=== PATIENT | female | born 1995 | race Caucasian/White ===

== ENCOUNTER → 2017-10-30 09:07 | Outpatient (POV) | payer OTHER, SELFPAY | PROVIDERS: Family Provider Internal Medicine; Visit Provider Internal Medicine | DX: Z00.00 Encounter for general adult medical examination without abnormal findings (principal) ==

== ENCOUNTER 2017-11-23 08:53 | Day surgery (SDC) | payer OTHER, SELFPAY ==
[2017-11-21 16:43] VITALS: BMI 24.7
[2017-11-23] VITALS (16 sets, daily range): BP systolic 92–141; BP diastolic 57–84; PULSE 59–95; RESP 12–20; TEMP 36.7–36.8; O2SAT 95–100
[2017-11-23 09:54] LABS: Urine Pregnancy, HCG Qual. Negative (Negative)
--- NOTE | 2017-11-23 11:16 | HMH.PROC ---
[facility] Procedure Note Procedure Note:: Upper Endoscopy Procedure Report: Esophagogastroduodenoscopy with cold biopsies Endoscopost: Umang Cortes II, MD Referring Physician: Roberth Moreno MD Date of Procedure: November 23, 2017 Equipment: Olympus GIF 180 standard upper endoscope Sedation: Fentanyl 200 mg IV/ Versed 10 mg IV Indications: Ms. Walter is a 22-year-old female with dyspepsia described as epigastric abdominal pain, indigestion, heartburn, reflux, bloating, belching, nausea and early satiety. The patient also has had diarrhea 4-5 times per week over the last year and some lower abdominal discomfort. She reports at least a 5 pound weight loss. Her mother has a history of IBS but she reports no history of Crohn's, colitis or celiac disease. Procedure: Prior to the procedure, a history and physical exam was performed, and patient's medications and allergies were reviewed. The risks, benefits and alternatives of the sedation and procedure were discussed with the patient. All questions were answered and informed consent was obtained. The patient was brought to the procedure room. Patient identification and proposed procedure were verified by the physician and the nurse. The patient was placed in a left lateral decubitus position and the scope was passed under direct vision. Throughout the procedure, the patient's blood pressure, pulse, and oxygen saturations were monitored continuously. The upper GI endoscopy was accomplished without difficulty. The patient tolerated the procedure well. Findings: The scope was passed directly into the upper esophagus and advanced to the third portion of the duodenum. The post bulbar duodenum and duodenal bulb were normal with normal mucosa and conniventes. Cold biopsies were taken from the post bulbar duodenum ?4. The scope was withdrawn through a normal duodenal bulb and pylorus into the stomach. There was very minimal linear erythema of the prepyloric antrum. The remainder of the antrum, body and fundus of the stomach were grossly normal. Upon retroflexion there was no hiatal hernia. 2 biopsies were taken in the antrum and along the lesser curvature for histology to rule out gastritis and/or H pylori. The scope was then withdrawn into the esophagus. There was no evidence of reflux esophagitis or Greenfield's. There were tertiary contractions and mild dysmotility. There was a mid esophageal diverticulum with an inflammatory or pseudopolyp within the base of the diverticulum that was biopsied. The remainder of the esophageal mucosa was normal. Impression: 1. Nonerosive GERD with mild esophageal dysmotility and mid esophageal diverticulum with inflammatory/pseudopolyp with base of diverticulum 2. 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 We will discuss dietary measures and treatment options. I will follow up the biopsies. I will proceed with diagnostic colonoscopy.
--- NOTE | 2017-11-23 11:42 | P.PCN_ITS ---
[facility] Procedure Note Procedure Note:: Colonoscopy Procedure Report: Colonoscopy with cold biopsy Endoscopist: Umang Cortes II, MD Referring physician: Roberth Moreno MD Date of Procedure: November 23, 2017 Equipment: Olympus 180 variable stiffness pediatric colonoscope Sedation: Fentanyl 200 mg IV/ Versed 15 mg IV Indication: Ms. Walter is a 22-year-old female with dyspepsia described as epigastric abdominal pain, indigestion, heartburn, reflux, bloating, belching, nausea and early satiety. The patient also has had diarrhea 4-5 times per week over the last year and some lower abdominal discomfort. She reports at least a 5 pound weight loss. Her mother has a history of IBS but she reports no history of Crohn's, colitis or celiac disease. The patient reports no rectal bleeding. She does state that stress exacerbates her symptoms. Procedure: Prior to the procedure, a history and physical exam was performed, and patient' s medications and allergies were reviewed. The risks, benefits and alternatives of the sedation and procedure were discussed with the patient. All questions were answered and informed consent was obtained. The patient was brought to the procedure room. Patient identification and proposed procedure were verified by the physician and the nurse. The patient was placed in a left lateral decubitus position and the scope was passed under direct vision. Throughout the procedure, the patient's blood pressure, pulse, and oxygen saturations were monitored continuously. The colonoscopy was accomplished without difficulty. The patient tolerated the procedure well. Findings: On digital rectal examination there was normal rectal tone. There were no external hemorrhoids. The colonoscope was introduced through the anal canal to the rectum and advanced to the cecum. The ileocecal valve and appendiceal orifice were identified. The scope was advanced a short distance into the ileum which appeared grossly normal. The scope was then withdrawn into the colon. The cecum, ascending, transverse, descending, sigmoid and rectum were grossly normal. There was a single diminutive 3 mm polyp in the rectum removed via cold biopsy. There were no other mucosal abnormalities identified. Upon retroflexion within the rectum there were grade 1 other internal hemorrhoids. Impression: 1. Diminutive rectal polyp 2. Small grade 1 internal hemorrhoids Plan: I will follow-up the polyp histology. I do feel that the patient has functional dyspepsia/functional bowel disease with SIBO. We will discuss additional dietary measures and treatment options.
== END 2017-11-23 13:19 | disposition home or self-care (01) ==
LOC: OUTP 08:54
PROVIDERS: Family Provider Internal Medicine; PCP Internal Medicine; Visit Provider Internal Medicine Gastroenterology
PROC: 0DJ08ZZ Inspection of Upper Intestinal Tract, Via Natural or Artificial Opening Endoscopic (ICD-10-PCS; CPT 43235; principal; 2017-11-23 10:00)
DX: K21.9 Gastro-esophageal reflux disease without esophagitis (principal); K22.4 Dyskinesia of esophagus; K29.60 Other gastritis without bleeding; K62.1 Rectal polyp; K64.0 First degree hemorrhoids
CPT/HCPCS: 43239; 45380; 81025; 99152; 99153

== ENCOUNTER → 2017-12-19 12:48 | Outpatient (CLI) | payer OTHER, SELFPAY ==
--- NOTE | 2017-12-19 12:56 | CT_ITS ---
CT chest wo con HISTORY: Follow-up mediastinal adenopathy ITS.REASON: MEDIASTINAL ADENOPATHY ORDERING PHYSICIAN: Antoine Moreno MD PATIENT AGE: 22 years Technique: Axial images obtained. Sagittal and coronal reformatted images are also generated and reviewed. All CT scans at the facility use one or more dose reduction, viz: automated exposure control; ma/kV adjustment per patient size (including targeted exams where dose is matched to indication; i.e. head); or iterative reconstruction technique. CONTRAST: None COMPARISON: 06/14/2017 FINDINGS: Prominent mediastinal and hilar adenopathy is once again noted with multiple calcified lymph nodes the adenopathy is somewhat less bulky in the subcarinal region. There remains a small pneumatocele in the superior segment of the right lower lobe containing a small focus of calcification anteriorly have an a somewhat signet ring appearance. There is some consolidation in the superior segment of the right lower lobe around this abnormality was not present on the previous exam a nodular opacity is present in the superior segment of the right lower lobe measuring 8 mm and has developed in the interval and could be due to pneumonia or a pulmonary nodule there is an additional cystic area in the left lower lobe posteriorly containing a focal coarse calcification. Calcification is stable however the cystic region has developed since previous exam. Calcific density is present in the left lung base medially unchanged. There is a 4 mm nodule within the lingula which is enlarged previously barely detectable at 2 to 3 mm. There is a trace right pleural effusion slightly smaller on today's study compared to the previous exam. No acute bony anomalies. Upper abdominal images are unremarkable. No axillary adenopathy IMPRESSION: 1. Persistent mediastinal and hilar adenopathy with multiple partially calcified nodes present as before. The subcarinal adenopathy is somewhat less apparent on today's exam with improvement in the central necrosis in the subcarinal region. These findings are consistent with sarcoidosis. 2. There are 2 cavitary pulmonary nodules one in the superior segment of the right lower lobe and one in the left lower lobe both of which have developed and areas of calcified granulomas. This may also be seen with sarcoidosis. 3. Slightly enlarging 4 mm nodule within the lingula 4. Patchy infiltrate in the superior segment of the right lower lobe with some nodularity also in this region which be related to inflammatory or infectious etiology.
== END ==
PROVIDERS: Family Provider Internal Medicine; PCP Internal Medicine; Visit Provider Internal Medicine
DX: R59.0 Localized enlarged lymph nodes (principal)
CPT/HCPCS: 71250

== ENCOUNTER → 2018-03-20 11:01 | Outpatient (CLI) | payer OTHER, SELFPAY ==
[2018-03-20 11:42] LABS: Basophils % 0.1 % (0.1-2.0); Eosinophils # 0.1 K/mm3 (0.0-0.4); Eosinophils % 0.9 % (0.1-12.0); Hematocrit 34.1 % (37.0-47.0); Hemoglobin 11.3 g/dL (12.2-16.2); Lymphocytes # 1.1 K/mm3 (0.7-4.5); Lymphocytes % 12.6 K/mm3 (10-50); Mean Corpuscular HGB Conc 33.3 g/dL (31.8-35.4); Mean Platelet Volume 7.1 fl (7.4-10.4); Monocytes # 0.5 K/mm3 (0.1-1.0); Monocytes % 5.9 % (1.7-9.3); Neutrophils # 7.1 K/mm3 (1.8-7.8); Neutrophils % 80.5 % (37.0-80.0); Platelet Count 292 K/mm3 (142-424); Red Blood Count 3.91 M/mm3 (4.20-5.40); Red Cell Distribution Width 13.1 % (11.5-17.5); White Blood Count 8.9 K/mm3 (4.8-10.8)
[2018-03-21 09:22] LABS: Rapid Plasma Reagin Ab Titer Non Reactive (NonRea<1:1)
[2018-03-22 20:02] LABS: HIV Screen 4th Generation wRfx Non Reactive (Non Reactive); Hepatitis B Surface Antigen Negative (Negative); Hepatitis C Antibody <0.1 s/co ratio (0.0-0.9); Rubella Antibodies, IgG 1.02 index (Immune >0.99)
== END ==
PROVIDERS: Family Provider Internal Medicine; PCP Internal Medicine; Visit Provider Nurse Practitioner Obstetrics & Gynecology
DX: Z34.90 Encounter for supervision of normal pregnancy, unspecified, unspecified trimester (principal)
CPT/HCPCS: 36415; 85025; 86592; 86703; 86762; 86850; 87340; 87380; G0432

== ENCOUNTER → 2018-03-29 10:26 | Outpatient (CLI) | payer OTHER, SELFPAY ==
--- NOTE | 2018-03-29 10:27 | US_ITS ---
US OB transvaginal HISTORY: ITS.REASON: US OB TV for DATES ORDERING PHYSICIAN: Hernandez Duarte MD PATIENT AGE: 23 years COMPARISON: None FINDINGS: An intrauterine gestational sac is present with a pole with a crown-rump length of 2.31cm correlating to gestational age of 9w1d. heart tones are present with an FHR of 186 bpm's. Yolk sac is noted. The amnion and chorion have not yet fused. Adnexa: Small bilateral ovarian cysts measuring up to 1.4 cm on the left and 1 cm on the right. IMPRESSION: Live intrauterine gestation at 9 weeks 1 days as described above. Estimated due date by ultrasound is 10/31/2018
== END ==
PROVIDERS: Family Provider Internal Medicine; PCP Internal Medicine; Visit Provider Nurse Practitioner Obstetrics & Gynecology
DX: O26.841 Uterine size-date discrepancy, first trimester (principal)
CPT/HCPCS: 76830

== ENCOUNTER → 2018-06-18 12:40 | Outpatient (CLI) | payer OTHER, SELFPAY ==
--- NOTE | 2018-06-18 12:41 | US_ITS ---
US OB /maternal detail: INDICATION: ITS.REASON: US OB Complete 20 wk+ Anatomy Scan ORDERING PHYSICIAN: Hernandez Duarte MD PATIENT AGE: 23 years TECHNIQUE: ultrasound transabdominal scanning. COMPARISON: No previous relevant studies. FINDINGS: Single viable intrauterine gestation. Breech position. Placenta: Anterior placenta grade 1. There is average amount fluid. The cervix appears satisfactory. Closed and measuring 3 cm in length. Complete survey performed and was unremarkable on the submitted images as in PACS. No discrete anomalies identified on survey imaging by technologist. Active fetus. Three-vessel cord with satisfactory umbilical cord insertion. 4- chamber heart noted. Survey of brain & ventricles unremarkable. Face and neck survey unremarkable. Diaphragm and chest views unremarkable. Abdomen: Both kidneys noted and unremarkable. Stomach noted and satisfactory. Spine: Survey of the spine satisfactory with no anomalies identified nor imaged. Both arms and legs noted. Amniotic Fluid: Adequate. Maternal adnexa: No significant findings. Measurements: Average ultrasound age 21w1d. Gestational Age 20w5d. Estimated due date by ultrasound age 0110/28/2018. Estimated weight 408 grams. BPD = 21w0d OFD = 22w2d HC = 21w1d AC = 22w1d FL = 20w2d Growth Percentile= 73% Heart Rate = 146 Cerebellum = 20w5d Humerus = 21w4d HC/AC is 1.09 (1.09-1.26). CI is 72% (70-86%). FL/BPD is 67%. FL/AC is 19%. IMPRESSION: There is a single live fetus which is in breech presentation with an average ultrasound age of 21 weeks and 1 day. All parameters correlate. heart and body motion noted. No obvious anomalies. Please see above for detail
== END ==
PROVIDERS: Family Provider Internal Medicine; PCP Internal Medicine; Visit Provider Nurse Practitioner Obstetrics & Gynecology
DX: Z36.0 Encounter for antenatal screening for chromosomal anomalies (principal)
CPT/HCPCS: 76811

== ENCOUNTER → 2018-07-09 07:15 | Outpatient (CLI) | payer OTHER, SELFPAY ==
--- NOTE | 2018-07-09 07:17 | US_ITS ---
US gallbladder HISTORY: Right upper quadrant pain and vomiting ITS.REASON: US Gallbladder- RUQP ORDERING PHYSICIAN: Hernandez Duarte MD PATIENT AGE: 23 years Comparison: None FINDINGS: PANCREAS: Unremarkable. No obvious mass or abnormal fluid collection. No ductal dilatation LIVER: No focal liver lesions demonstrated. Homogeneous echogenicity. No intrahepatic biliary ductal dilatation evident RIGHT KIDNEY: There is dilatation of the right renal collecting system which may be be seen with . Please correlate with clinical findings. GALLBLADDER: Multiple small gallstones are present. No gallbladder wall thickening, pericholecystic fluid, or biliary dilatation. IMPRESSION: No cholelithiasis. 2. Mild right hydronephrosis and proximal hydroureter possibly due to the gravid uterus. Clinical correlation and follow-up suggested
== END ==
PROVIDERS: Family Provider Internal Medicine; PCP Internal Medicine; Visit Provider Nurse Practitioner Obstetrics & Gynecology
DX: R10.11 Right upper quadrant pain (principal)
CPT/HCPCS: 76705

== ENCOUNTER → 2018-08-13 10:56 | Outpatient (POV) | payer OTHER, SELFPAY | PROVIDERS: Visit Provider Internal Medicine | DX: Z00.00 Encounter for general adult medical examination without abnormal findings (principal) ==

== ENCOUNTER → 2018-08-19 19:53 | Outpatient (CLI) | payer OTHER, SELFPAY | PROVIDERS: PCP Internal Medicine; Visit Provider Nurse Practitioner Obstetrics & Gynecology | DX: N39.0 Urinary tract infection, site not specified (principal) | CPT/HCPCS: 87086 ==

== ENCOUNTER 2018-09-07 19:37 | Inpatient (IN) ==
--- NOTE | 2018-09-07 20:10 | Emergency Department Note ---
ED Disposition Clinical Impression: Abdominal pain Qualifiers: Abdominal location: right upper quadrant Qualified Code(s): R10.11 - Right upper quadrant pain Qualifiers: Weeks of gestation: 33 weeks Qualified Code(s): Z3A.33 - 33 weeks gestation of Disposition: Home, Self-Care Condition on Discharge: Good Instructions: DI for Nausea -- Adult Referrals: Luke Hammonds [Primary Care Provider] - - Critical Care Critical Care Time: No Attestation: On 09/07/18, the high probability of a clinically significant, sudden or life threatening deterioration of the following system(s) required my full and direct attention, intervention and personal management. The time I documented below is in addition to time spent performing reported procedures but includes the following listed in this critical care notation. Medical Decision Making - Medical Records Medical records reviewed: Yes: I reviewed the patient's medical records. - Phani Inquiry Pt receiving controlled substance: No Vital Signs: 09/07/18 19:38 Temperature 98.2 F Temperature Source Oral Pulse Rate [Right Brachial] 78 Respiratory Rate 17 Blood Pressure [Right Arm] 123/68 Blood Pressure Mean [Right Arm] 86 02 Sat by Pulse Oximetry 100 Orders (Tests/Meds): ED MEDICATIONS Generic Name Dose Route Start Last Admin Trade Name Freq PRN Reason Stop Dose Admin Sodium Chloride 1,000 mls @ 999 mls/hr 09/07/18 19:45 09/07/18 19:53 Sod Chlor 0.9% 1000ml Bag IV 09/07/18 20:45 999 mls/hr .Q1H1M OLIVER Administration Discontinued Medications Generic Name Dose Route Start Last Admin Trade Name Freq PRN Reason Stop Dose Admin Morphine Sulfate 2 mg 09/07/18 20:09 09/07/18 20:10 Morphine 2mg/Ml Syringe IV 09/07/18 20:10 2 mg ONCE ONE Administration Promethazine HCl 12.5 mg 09/07/18 19:42 09/07/18 19:52 Phenergan 25mg/Ml 1ml Vial IV 09/07/18 19:43 12.5 mg ONCE ONE Administration Sodium Chloride 25 ml 09/07/18 19:42 09/07/18 19:52 Sod Chlor 0.9% 25ml Bag IV 09/07/18 19:43 25 ml ONCE ONE Administration ORDERS Category Date Time Status Amylase Stat Lab 09/07/18 19:55 Received Complete Blood Count Auto Diff Stat Lab 09/07/18 19:55 Received Comprehensive Metabolic Panel Stat Lab 09/07/18 19:55 Received Lipase Stat Lab 09/07/18 19:55 Received - Physician Consults Physician Consulted: priyank Reason -: Pt condition HPI - General Chief complaint: Nausea/Vomiting/Diarrhea Stated complaint: vomiting Time Seen by Provider: 09/07/18 20:07 Mode of Arrival: Family Vehicle Source of Information: Patient, Medical Record Limitations: No Limitations Description of Symptoms (Recalled from ER Triage Doc. by RN): pt presents to ed with c/o vomiting and right upper quad abd pain that radiates into back. pt has known galbladder disease and is 33 weeks . 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 - History of Present Illness HPI Narrative: upper abd pain with vomiting in 33 week wf - known gb disease MD Complaint: abdominal pain Onset (ago): day(s) Location: abdomen Severity: moderate Quality: cramping Associated symptoms: nausea, vomiting Vaginal bleeding: none : yes Date of Last Menstrual Period: . - Related Data Home Medications Medication Instructions Recorded Confirmed 1 tab PO QHS 03/20/18 09/07/18 vitamin,calcium,kgjhvljl-jqdl-sshof acid tablet Ferrous Sulfate 325 mg PO DAILY 09/07/18 09/07/18 Previous Rx's Medication Instructions Recorded promethazine 12.5 mg tablet 12.5 mg PO Q6H PRN #14 tab 04/23/18 Allergies Allergy/AdvReac Type Severity Reaction Status Date / Time Sulfa (Sulfonamide AdvReac Intermediate Verified 09/07/18 19:41 Antibiotics) [facility] History I have reviewed the patient's past medical history: Yes Medical History: Reports:: Lung Disease Denies:: Cancer, Diabetes Mellitus Type 1, Diabetes Mellitus Type 2, Internal Pacemaker, MRSA, Seizures Comment: IBS, chronic pneumonia, T&A, mediastinal adenopathy, GERD Other Surgeries: Yes: Colonoscopy. No: Pacemaker Amputation: No Fractures: No Comment: breast biopsy,EGD, Bronchial scopy with biopsy - Social History Smoking Status: Never smoker Alcohol Intake: never Alcohol Intake Frequency:: holidays/special occasions only Substance Use Type: denies use - Psychiatric History Expresses thoughts of harming self/others: None Suicide Plan Description: No Plan Family Hx:: Cancer, Diabetes, Coronary Artery Disease, Stroke, Hypertension, Hyperlipidemia ROS Obtained: Yes All systems reviewed & no additional complaints - Constitutional Constitutional: Denies fever(s) - Eyes Eyes: Denies change in vision - ENT Ears, Nose, Mouth, and Throat: Denies sore throat - Cardiovascular Cardiovascular: Denies chest pain - Respiratory Respiratory: No cough - Gastrointestinal Gastrointestingal: Reports: abdominal pain, nausea, vomiting - Genitourinary Female Genitourinary: Denies abnormal vaginal bleeding - Musculoskeletal Musculoskeletal: Denies joint pain, Denies joint swelling - Integumentary/Breasts Skin/Breast: Denies rash - Neurologic Neurologic: Denies seizure-like activity Physical Exam - General General appearance: alert - Head Head exam: normocephalic - Eye Eye exam: Present: PERRL, EOMI. Absent: scleral icterus - ENT ENT exam: Present: mucous membranes moist - Neck Neck exam: Present: trachea midline - Respiratory Respiratory exam: Absent: respiratory distress - Cardiovascular Cardiovascular exam: Present: regular rate - Abdominal Exam Abdominal exam: Present: soft, tenderness - Neurological Exam Neurological exam: Present: alert, oriented X3, CN II-XII intact - Psychiatric Psychiatric exam: Present: normal affect - Skin Skin exam: Absent: rash
[2018-09-07 20:15] LABS: Basophils % 0.1 % (0.1-2.0); Eosinophils % 0.2 % (0.1-12.0); Hematocrit 34.1 % (37.0-47.0); Hemoglobin 12.3 g/dL (12.2-16.2); Lymphocytes % 7.3 % (10-50); Mean Corpuscular Hemoglobin 33.7 pg (27.0-31.2); Mean Corpuscular Volume 93.6 fl (81-99); Mean Platelet Volume 7.1 fl (7.4-10.4); Monocytes # 0.9 K/mm3 (0.1-1.0); Monocytes % 6.3 % (1.7-9.3); Neutrophils # 12.3 K/mm3 (1.8-7.8); Neutrophils % 86.2 % (37.0-80.0); Platelet Count 237 K/mm3 (142-424); Red Blood Count 3.65 M/mm3 (4.20-5.40); Red Cell Distribution Width 14.2 % (11.5-17.5); White Blood Count 14.3 K/mm3 (4.8-10.8)
[2018-09-07 20:21] LABS: Albumin Level 2.5 gm/dL (3.4-5.0); Albumin/Globulin Ratio 0.5 (1.1-1.8); Anion Gap 14.5 mEq/L (5-15); Bilirubin,Total 0.7 mg/dL (0.2-1.0); Calcium 8.6 mg/dL (8.5-10.1); Globulin 4.8 gm/dl (1.3-3.2); Potassium 3.5 mmoL/L (3.5-5.1); Total Protein,Serum 7.3 gm/dL (6.4-8.2)
[2018-09-07 20:37] LABS: Lymphocytes % 6 % (10-50); Monocytes % 3 % (2-9); Neutrophils % 81 % (42-76); RBC Morphology Normal; Total Cells Counted 100
[2018-09-08 06:57] LABS: Basophils % 0.1 % (0.1-2.0); Eosinophils % 0.2 % (0.1-12.0); Lymphocytes # 0.9 K/mm3 (0.7-4.5); Lymphocytes % 6.9 % (10-50); Mean Corpuscular HGB Conc 33.6 g/dL (31.8-35.4); Mean Corpuscular Hemoglobin 31.9 pg (27.0-31.2); Mean Platelet Volume 7.1 fl (7.4-10.4); Monocytes # 0.7 K/mm3 (0.1-1.0); Neutrophils # 10.7 K/mm3 (1.8-7.8); Neutrophils % 86.8 % (37.0-80.0); Platelet Count 225 K/mm3 (142-424); Red Blood Count 3.16 M/mm3 (4.20-5.40); Red Cell Distribution Width 14.3 % (11.5-17.5); White Blood Count 12.3 K/mm3 (4.8-10.8)
[2018-09-08 07:06] LABS: Hemoglobin 10.1 g/dL (12.2-16.2)
[2018-09-08 07:12] LABS: Albumin/Globulin Ratio 0.6 (1.1-1.8); Anion Gap 12.6 mEq/L (5-15); Bilirubin,Total 0.6 mg/dL (0.2-1.0); Globulin 3.4 gm/dl (1.3-3.2); Potassium 3.6 mmoL/L (3.5-5.1); Total Protein,Serum 5.4 gm/dL (6.4-8.2)
[2018-09-08 07:13] LABS: Calcium 7.7 mg/dL (8.5-10.1)
[2018-09-08 07:19] LABS: Eosinophils % 1 % (0-3); Lymphocytes % 17 % (10-50); Neutrophils % 82 % (42-76); Total Cells Counted 100
[2018-09-08 07:20] LABS: RBC Morphology Normal
--- NOTE | 2018-09-08 08:45 | History & Physical Report ---
OB - H&P: HPI Antepartum - History of Present Illness Chief complaint: Right upper quadrant pain, cholecystitis, nausea vomiting History of present illness: She is a 23-year-old 1 para 0 at 32+ weeks gestational age. She came into the ER last night with severe right upper quadrant pain radiating through her back as well as nausea and vomiting. She was not able to get the pain under control. As a result of that she was admitted for pain relief and investigation. Blood work and liver function tests were all normal. - History of Present Criteria for establishing EDC:: LMP confirmed by 1st trimester US care: good care Ultrasounds: normal 1st trimester US, normal mid trimester US Obstetrical complications: none Medical complications: other Narrative: Cholecystitis. [facility] History I have reviewed the patient's past medical history: Yes Medical History: Reports:: Lung Disease Denies:: Cancer, Diabetes Mellitus Type 1, Diabetes Mellitus Type 2, Internal Pacemaker, MRSA, Seizures Other Surgeries: Yes: Colonoscopy. No: Pacemaker Amputation: No Fractures: No - *Social History Smoking Status: Never smoker Alcohol Intake: never Alcohol Intake Frequency:: holidays/special occasions only Substance Use Type: denies use - Psychiatric History Expresses thoughts of harming self/others: None Suicide Plan Description: No Plan *Family Hx:: Cancer, Diabetes, Coronary Artery Disease, Stroke, Hypertension, Hyperlipidemia Review of Systems - Review of Systems Review of systems:: pertinent systems reviewed and negative unless documented below - *Neurologic Denies seizure-like activity Meds Home Medications Medication Instructions Recorded Confirmed Type 1 tab PO QHS 03/20/18 09/07/18 History vitamin,calcium,qxgavptn-lszg-bytxq acid tablet Ferrous Sulfate 325 mg PO DAILY 09/07/18 09/07/18 History Allergies Allergy/AdvReac Type Severity Reaction Status Date / Time Sulfa (Sulfonamide AdvReac Intermediate Verified 09/07/18 19:41 Antibiotics) OB - H&P: Exam - Physical Exam Vital signs: Temp Pulse Resp BP Pulse Ox 98 F 67 16 113/78 100 09/07/18 21:47 09/07/18 21:47 09/07/18 21:47 09/07/18 21:47 09/07/18 19:38 - Constitutional no acute distress - Routine HEENT Exam Head: Present: normocephalic Eye: Present: EOMI, PERRL ENT: Present: mucous membranes moist - Routine Neck Exam Present: supple, full ROM - Routine Respiratory Exam Absent: accessory muscle use (good air entry bilaterally), respiratory distress, wheezes, crackles - Routine Cardiovascular Exam Present: RRR. Absent: murmur - Routine Abdominal Exam Present: soft, normoactive bowel sounds. Absent: tenderness, distended, guarding - Routine Rectal Exam Patient deferred: visual exam, digital exam - Routine Exam Patient deferred: external exam, groin exam, perineal exam - Routine Extremities Exam Present: full ROM. Absent: cyanosis, edema - Routine Skin Exam Present: intact. Absent: cyanosis - Routine Neurological Exam Present: alert, oriented X3 - Routine Psychiatric Exam Present: normal affect OB - Results - Labs Labs: Short CBC 09/07/18 09/08/18 Range/Units 19:55 06:15 WBC 14.3 H 12.3 H (4.8-10.8) K/mm3 Hgb 12.3 10.1 L D (12.2-16.2) g/dL Hct 34.1 L 30.0 L (37.0-47.0) % Plt Count 237 225 (142-424) K/mm3 BMP 09/07/18 09/08/18 19:55 06:15 Sodium 135 L 137 Potassium 3.5 3.6 Chloride 101 103 Carbon Dioxide 23 25 BUN 4 L 3 L Creatinine 0.58 0.56 Glucose 93 97 Calcium 8.6 7.7 L D Liver Function 09/07/18 09/08/18 Range/Units 19:55 06:15 Total Bilirubin 0.7 0.6 (0.2-1.0) mg/dL AST 7 L 5 L D (15-37) U/L ALT 14 11 L (12-78) U/L Alkaline Phosphatase 126 H 108 (46-116) U/L Albumin 2.5 L 2.0 L D (3.4-5.0) gm/dL OB - A/P Antepartum (1) Acute cholecystitis Current visit: Yes Status: Acute (2) Nausea and vomiting during Current visit: Yes Status: Acute (3) Abdominal pain Current visit: Yes Status: Acute - Additional Plan Planning to breastfeed?: Yes Plan: other Additional Information:: She has been admitted for pain relief. She has a gallbladder ultrasound pending this morning. She is doing a little better this morning with her pain. Nonstress test is reactive. She has occasional rare contractions. We will have her seen by general surgery as well in consultation. We will continue with admission overnight. She will continue with clear fluids until after she has had her ultrasound.
--- NOTE | 2018-09-08 10:01 | Consult Report ---
*Admission Date: 09/08/18 *Chief complaint: Abdominal pain, back pain, reflux, and nausea *History of present illness: This is a 23-year-old female seen in consultation from Dr. Duarte for evaluation of possible gallbladder disease. She is just over 32 weeks gestation. She presented to the emergency department overnight with increasing pain "between the shoulder blades". She also describes increasing gastroesophageal reflux. She did initially describe right upper quadrant pain with radiation to the back; however, she currently states that her pain is/was mostly epigastric and mid back. Her symptoms have been increasing over the past 3 days. She does have a history of significant right upper quadrant pain earlier in her and was diagnosed with gallstones. This morning she feels "somewhat better". Please see HPI from admission H&P forwarded below: She is a 23-year-old 1 para 0 at 32+ weeks gestational age. She came into the ER last night with severe right upper quadrant pain radiating through her back as well as nausea and vomiting. She was not able to get the pain under control. As a result of that she was admitted for pain relief and investigation. Blood work and liver function tests were all normal. Review of Systems - Constitutional Denies anorexia, Denies body ache(s) - Eyes Denies change in vision - ENT Denies change in voice - *Cardiovascular Denies chest pain - *Respiratory Denies cough - *Gastrointestinal Reports abdominal pain, Reports nausea, Reports vomiting, Denies vomiting blood, Denies bright, red blood in stools, Denies black, tarry stools - *Genitourinary Denies abnormal vaginal bleeding - *Musculoskeletal Denies joint pain - *Neurologic Denies seizure-like activity - Psychiatric Denies anxiety - Endocrine Denies cold intolerance - Hematologic/Lymphatic Denies easy bleeding [facility] History Medical History: Reports:: Lung Disease Denies:: Cancer, Diabetes Mellitus Type 1, Diabetes Mellitus Type 2, Internal Pacemaker, MRSA, Seizures Other Surgeries: Yes: Colonoscopy. No: Pacemaker Amputation: No Fractures: No - *Social History Smoking Status: Never smoker Alcohol Intake: never Alcohol Intake Frequency:: holidays/special occasions only Substance Use Type: denies use - Psychiatric History Expresses thoughts of harming self/others: None Suicide Plan Description: No Plan *Family Hx:: Cancer, Diabetes, Coronary Artery Disease, Stroke, Hypertension, Hyperlipidemia Meds Home Medications Medication Instructions Recorded Confirmed Type 1 tab PO QHS 03/20/18 09/07/18 History vitamin,calcium,awxozpom-jjux-hibsy acid tablet Ferrous Sulfate 325 mg PO DAILY 09/07/18 09/07/18 History Allergies Allergy/AdvReac Type Severity Reaction Status Date / Time Sulfa (Sulfonamide AdvReac Intermediate Verified 09/07/18 19:41 Antibiotics) Exam Vital signs and Labs for Last 24 Hours: Temp Pulse Resp BP Pulse Ox 98 F 67 16 113/78 100 09/07/18 21:47 09/07/18 21:47 09/07/18 21:47 09/07/18 21:47 09/07/18 19:38 Laboratory Results - last 24 hr 09/07/18 19:55: WBC 14.3 H, RBC 3.65 L, Hgb 12.3, Hct 34.1 L, MCV 93.6, MCH 33.7 H, MCHC 36.0 H, RDW 14.2, Plt Count 237, MPV 7.1 L, Neut % (Auto) 86.2 H, Lymph % (Auto) 7.3 L, [place] % (Auto) 6.3, Eos % (Auto) 0.2, Baso % (Auto) 0.1, Neut # (Auto) 12.3 H, Lymph # (Auto) 1.0, [place] # (Auto) 0.9, Eos # (Auto) 0.0, Baso # (Auto) 0.0, Total Counted 100, Neutrophils % (Manual) 81 H, Band Neutrophils % 10.0 H, Lymphocytes % (Manual) 6 L, Monocytes % (Manual) 3, Platelet Estimate Normal, RBC Morphology Normal 09/07/18 19:55: Sodium 135 L, Potassium 3.5, Chloride 101, Carbon Dioxide 23, Anion Gap 14.5, BUN 4 L, Creatinine 0.58, Estimated Creat Clear 167, Estimated GFR 129, Est GFR ( Amer) 156, Glucose 93, Calcium 8.6, Total Bilirubin 0.7, AST 7 L, ALT 14, Alkaline Phosphatase 126 H, Total Protein 7.3, Albumin 2.5 L, Globulin 4.8 H, Albumin/Globulin Ratio 0.5 L, Amylase 33, Lipase 72 L 09/08/18 06:15: WBC 12.3 H, RBC 3.16 L, Hgb 10.1 L D, Hct 30.0 L, MCV 95.0, MCH 31.9 H, MCHC 33.6, RDW 14.3, Plt Count 225, MPV 7.1 L, Neut % (Auto) 86.8 H, Lymph % (Auto) 6.9 L, [place] % (Auto) 6.0, Eos % (Auto) 0.2, Baso % (Auto) 0.1, Neut # (Auto) 10.7 H, Lymph # (Auto) 0.9, [place] # (Auto) 0.7, Eos # (Auto) 0.0, Baso # (Auto) 0.0, Total Counted 100, Neutrophils % (Manual) 82 H, Lymphocytes % (Manual) 17, Eosinophils % (Manual) 1, Platelet Estimate Normal, RBC Morphology Normal 09/08/18 06:15: Sodium 137, Potassium 3.6, Chloride 103, Carbon Dioxide 25, Anion Gap 12.6, BUN 3 L, Creatinine 0.56, Estimated Creat Clear 173, Estimated GFR 134, Est GFR ( Amer) 162, Glucose 97, Calcium 7.7 L D, Total Bilirubin 0.6, AST 5 L D, ALT 11 L, Alkaline Phosphatase 108, Total Protein 5.4 L D, Albumin 2.0 L D, Globulin 3.4 H, Albumin/Globulin Ratio 0.6 L I & O for Last 24 hours: Intake & Output 09/05/18 09/06/18 09/07/18 09/08/18 11:59 11:59 11:59 11:59 Intake Total 1600 / 1600 Balance 1600 / 1600 Weight 155 lb - Constitutional no acute distress - *Routine Respiratory Exam Absent: respiratory distress - *Routine Cardiovascular Exam Present: RRR - *Routine Abdominal Exam Comments: gravid. no significant/focal RUQ TTP. Results - Labs 09/08/18 06:15 09/08/18 06:15 Laboratory Results - last 24 hr 09/07/18 19:55: WBC 14.3 H, RBC 3.65 L, Hgb 12.3, Hct 34.1 L, MCV 93.6, MCH 33.7 H, MCHC 36.0 H, RDW 14.2, Plt Count 237, MPV 7.1 L, Neut % (Auto) 86.2 H, Lymph % (Auto) 7.3 L, [place] % (Auto) 6.3, Eos % (Auto) 0.2, Baso % (Auto) 0.1, Neut # (Auto) 12.3 H, Lymph # (Auto) 1.0, [place] # (Auto) 0.9, Eos # (Auto) 0.0, Baso # (Auto) 0.0, Total Counted 100, Neutrophils % (Manual) 81 H, Band Neutrophils % 10.0 H, Lymphocytes % (Manual) 6 L, Monocytes % (Manual) 3, Platelet Estimate Normal, RBC Morphology Normal 09/07/18 19:55: Sodium 135 L, Potassium 3.5, Chloride 101, Carbon Dioxide 23, Anion Gap 14.5, BUN 4 L, Creatinine 0.58, Estimated Creat Clear 167, Estimated GFR 129, Est GFR ( Amer) 156, Glucose 93, Calcium 8.6, Total Bilirubin 0.7, AST 7 L, ALT 14, Alkaline Phosphatase 126 H, Total Protein 7.3, Albumin 2.5 L, Globulin 4.8 H, Albumin/Globulin Ratio 0.5 L, Amylase 33, Lipase 72 L 09/08/18 06:15: WBC 12.3 H, RBC 3.16 L, Hgb 10.1 L D, Hct 30.0 L, MCV 95.0, MCH 31.9 H, MCHC 33.6, RDW 14.3, Plt Count 225, MPV 7.1 L, Neut % (Auto) 86.8 H, Lymph % (Auto) 6.9 L, [place] % (Auto) 6.0, Eos % (Auto) 0.2, Baso % (Auto) 0.1, Neut # (Auto) 10.7 H, Lymph # (Auto) 0.9, [place] # (Auto) 0.7, Eos # (Auto) 0.0, Baso # (Auto) 0.0, Total Counted 100, Neutrophils % (Manual) 82 H, Lymphocytes % (Manual) 17, Eosinophils % (Manual) 1, Platelet Estimate Normal, RBC Morphology Normal 09/08/18 06:15: Sodium 137, Potassium 3.6, Chloride 103, Carbon Dioxide 25, Anion Gap 12.6, BUN 3 L, Creatinine 0.56, Estimated Creat Clear 173, Estimated GFR 134, Est GFR ( Amer) 162, Glucose 97, Calcium 7.7 L D, Total Bilirubin 0.6, AST 5 L D, ALT 11 L, Alkaline Phosphatase 108, Total Protein 5.4 L D, Albumin 2.0 L D, Globulin 3.4 H, Albumin/Globulin Ratio 0.6 L Assessment and Plan (1) Acute cholecystitis Current visit: Yes Status: Acute Category: Medical Code(s): K81.0 - Acute cholecystitis (2) Nausea and vomiting during Current visit: Yes Status: Acute Category: Medical Code(s): O21.9 - Vomiting of , unspecified (3) Abdominal pain Current visit: Yes Status: Acute Qualifiers: Abdominal location: right upper quadrant Qualified Code(s): R10.11 - Right upper quadrant pain Category: Medical Code(s): R10.9 - Unspecified abdominal pain The patient currently describes more "reflux and back pain between the shoulder blades" as opposed to focal right upper quadrant pain. She does have a known history of gallstones and has had intermittent pain in the right upper quadrant with associated nausea. Although she may not have acute calculus cholecystitis, she does seemingly have symptomatic cholelithiasis with potential concomitant gastroesophageal reflux. Follow-up pending right upper quadrant ultrasound. Serial exams. No need for immediate surgical intervention. If right upper quadrant ultrasound shows changes consistent with acute cholecystitis...consideration of transfer to tertiary care center with neonatology and M capabilities is reasonable.
--- NOTE | 2018-09-08 12:31 | Pharmacy Consult Notes ---
[facility] Pharmacy VTE Monitoring - Patient Demographics Admission date: 09/07/18 Report Date: 09/08/18 Time: 12:31 Allergies/Adverse Reactions: Patient Allergies No Known Allergies Allergy (Verified 09/08/18 11:09) Height: 1.65 m Weight: 70.307 kg Patient Problems: Current Active Problems Abdominal pain (Acute) Acute cholecystitis (Acute) Nausea and vomiting during (Acute) (Acute) - VTE Risk Labs: VTE Related Lab Results Hgb 10.1 g/dL (12.2-16.2) L D 09/08/18 06:15 Hct 30.0 % (37.0-47.0) L 09/08/18 06:15 Plt Count 225 K/mm3 (142-424) 09/08/18 06:15 BUN 3 mg/dL (7-18) L 09/08/18 06:15 Creatinine 0.56 mg/dL (0.55-1.02) 09/08/18 06:15 Estimated Creat Clear 173 mL/min (50-200) 09/08/18 06:15 VTE Score: 1 - Prophylaxis VTE Prophylaxis Ordered?: Yes Types of VTE Prophylaxis: TEDS Knee High Location of Applied Device: Bilateral Lower Extremeties - VTE Diagnosis Confirmed Treatment or plan recommended: Continue Current Treatment
--- NOTE | 2018-09-09 08:45 | Progress Note ---
Subjective Patient reports: still having pain (nausea improved. pain still "mostly between shoulders". pain in RUQ persists.) Exam Vital signs and Labs for Last 24 Hours: Temp Pulse Resp BP Pulse Ox 98.0 F 90 16 102/57 L 97 09/08/18 20:24 09/08/18 20:24 09/08/18 20:24 09/08/18 20:24 09/08/18 20:24 I & O for Last 24 hours: Intake & Output 09/06/18 09/07/18 09/08/18 09/09/18 11:59 11:59 11:59 11:59 Intake Total 1600 / 1600 200 / 200 Balance 1600 / 1600 200 / 200 Weight 155 lb 155 lb - Constitutional no acute distress - *Routine Abdominal Exam Present: soft Progress Note: A&P (1) Nausea and vomiting during Status: Acute Current Visit: Yes (2) Abdominal pain Status: Acute Assessment and plan: likely a combination of symptomatic cholelithiasis and reflux Current Visit: Yes (3) Symptomatic cholelithiasis Status: Acute Assessment and plan: No need for urgent surgical intervention. Continue pain management. Continue serial abdominal exams. May require transfer to tertiary center if symptoms persist or worsen. Current Visit: Yes (4) GERD (gastroesophageal reflux disease) Status: Acute Assessment and plan: continue medical management as per primary Current Visit: Yes
--- NOTE | 2018-09-09 09:53 | Progress Note ---
Internal Medicine - PN: Subj *Date: 09/09/18 *Time: 09:51 Interval history: She is doing a little better this morning. She has had no further episodes of vomiting. She did have some nausea in the middle the her pain is much improved. She still has some pain that goes through to her back as well as some pain on the right side. It is better than it was yesterday. An ultrasound shows that she had Regi lithiasis but no cholecystitis. There was no bladder wall thickening. She continues with her antibiotics. She continues with Pepcid. Exam Vital signs and Labs for Last 24 Hours: Temp Pulse Resp BP Pulse Ox 98.0 F 90 16 102/57 L 97 09/08/18 20:24 09/08/18 20:24 09/08/18 20:24 09/08/18 20:24 09/08/18 20:24 I & O for Last 24 hours: Intake & Output 09/06/18 09/07/18 09/08/18 09/09/18 11:59 11:59 11:59 11:59 Intake Total 1600 / 1600 200 / 200 Balance 1600 / 1600 200 / 200 Weight 155 lb 155 lb - Constitutional no acute distress Assessment and Plan (1) Nausea and vomiting during Current visit: Yes Status: Acute Category: Medical Code(s): O21.9 - Vomiting of , unspecified (2) Abdominal pain Current visit: Yes Status: Acute Qualifiers: Abdominal location: right upper quadrant Qualified Code(s): R10.11 - Right upper quadrant pain Category: Medical Code(s): R10.9 - Unspecified abdominal pain (3) Symptomatic cholelithiasis Current visit: Yes Status: Acute Category: Medical Code(s): K80.20 - Calculus of gallbladder without cholecystitis without obstruction (4) GERD (gastroesophageal reflux disease) Current visit: Yes Status: Acute Category: Medical Code(s): K21.9 - Gastro-esophageal reflux disease without esophagitis - Assessment and plan all Dx Assessment and Plan for all problems:: We will continue with close observation over the next 24 hours. We will continue with the Pepcid and antibiotics. If she is doing well tomorrow we will consider sending her home.
--- NOTE | 2018-09-10 08:30 | Discharge Summary ---
General - General Admission date:: 09/08/18 Discharge date: 09/10/18 HPI HPI: She is a 23-year-old 1 now para 0 at 32 weeks gestational age. She complains of severe abdominal pain radiating through her back. She had nausea and vomiting. She has gallstones. She was admitted for pain relief and control of her nausea vomiting. Hospital Course Hospital Course: She was admitted and started on IV fluids. She received antiemetics as well as pain medicine. We have started her on Pepcid. She had an ultrasound that showed gallstones but no cholecystitis or gallbladder wall thickening. She seen in consultation by Dr. Monte who agreed that the pain was somewhat atypical. She has done well over the last 24 hours and is eating and drinking and ambulating. She has had no further episodes of nausea or vomiting. She still has some minor episodes of discomfort as well as heartburn. We will discharge her home to follow-up with me in a week's time. She will continue with her Pepcid 20 mg daily. She was given a prescription for Lortab 7.5/325 number 20 tablets and she has Phenergan at home. She will return if she has any worsening of her symptoms. She was given a low-fat diet as well. She is stable and improved. Objective Vital signs: Temp Pulse Resp BP Pulse Ox 98.0 F 90 16 102/57 L 97 09/08/18 20:24 09/08/18 20:24 09/08/18 20:24 09/08/18 20:24 09/08/18 20:24 no acute distress DS: Diagnosis - Discharge Diagnosis (1) Nausea and vomiting during Status: Acute (2) Abdominal pain Status: Acute (3) Symptomatic cholelithiasis Status: Acute (4) GERD (gastroesophageal reflux disease) Status: Acute Discharge Plan - Patient Discharge Instructions ACTIVITY: Continue current activity DIET: low fat, low cholesterol - Follow up Plan Follow up with: Epifanio Seaman MD [Staff Physician] - 2 weeks (may postpone to after delivery if symptoms continue to improve) Disposition: Home, Self-Half-Way Medications: Home Medications Medication Instructions Recorded Confirmed Type 1 tab PO HS 03/20/18 09/08/18 History vitamin,calcium,cvpbywlz-hsad-phncl acid tablet Ferrous Sulfate 325 mg PO DAILY 09/07/18 09/07/18 History Prescriptions/Medication Reconciliation: New Famotidine [Pepcid 20mg Tablet] 20 mg PO DAILY #30 tablet Hydrocodone/Acetaminophen [Lortab 7.5/325mg tablet] 1 tab PO Q6HP PRN #20 tab PRN Reason: Moderate To Severe Pain Continue vitamin,calcium,qtsmbsfu-than-wlwfq acid tablet 1 tab PO HS promethazine 12.5 mg tablet 12.5 mg PO Q6H PRN #14 tab PRN Reason: nausea and vomiting Ferrous Sulfate 325 mg PO DAILY
== END 2018-09-10 09:06 | disposition home or self-care (01) ==
LOC: 2ND 19:37 → ER 19:37 → OB 21:35
PROVIDERS: ADMIT Nurse Practitioner Obstetrics & Gynecology; ATTEND Nurse Practitioner Obstetrics & Gynecology
CPT/HCPCS: 36415; 59025; 76705; 80053; 82150; 83690; 85007; 85025; 96365; 96366; 96367; 96375; 96376; 99283; G0378; J2405

== ENCOUNTER → 2018-10-02 16:54 | Outpatient (CLI) | payer OTHER, SELFPAY | PROVIDERS: Visit Provider Nurse Practitioner Obstetrics & Gynecology | DX: Z34.90 Encounter for supervision of normal pregnancy, unspecified, unspecified trimester (principal) | CPT/HCPCS: 86403 ==

== ENCOUNTER 2018-10-14 13:52 | Outpatient (CLI) | payer OTHER, SELFPAY ==
[2018-10-14 14:09] VITALS: BP 122/71; PULSE 60; RESP 20; TEMP 36.3; O2SAT 100; BMI 28.3
[2018-10-14 14:32] LABS: Appearance,Urine SL CLOUDY (Clear); Bilirubin,Urine Negative (Negative); Blood, Urine Negative (Negative); Color,Urine YELLOW (Yellow); Glucose,Urine (UA) Negative (Negative); Ketones,Urine Negative (Negative); Leukocyte Esterase,Urine 1+ (Negative); Microscopic, Urine URINE MICROSCOPIC (MICROSCOPIC); Nitrate,Urine Negative (Negative); Protein,Urine Negative (Negative); Specific Gravity, Urine <= 1.005 (1.005-1.030); Urobilinogen,Urine 0.2 EU/dl (0.2)
[2018-10-14 14:47] LABS: Bacteria,Urine 4+ /lpf; Squamous Epithelial Cell,Urine 20-50 #/hpf (0-5)
== END 2018-10-14 14:56 | disposition home or self-care (01) ==
LOC: OBOUT 13:54 → OB 14:00
PROVIDERS: PCP Nurse Practitioner Obstetrics & Gynecology; Visit Provider Nurse Practitioner Obstetrics & Gynecology
DX: O26.893 Other specified pregnancy related conditions, third trimester (principal); Z3A.37 37 weeks gestation of pregnancy; R10.9 Unspecified abdominal pain
CPT/HCPCS: 59025; 81001; 87086

== ENCOUNTER 2018-10-30 04:38 | Inpatient (IN) ==
[2018-10-30 05:40] LABS: Basophils % 0.2 % (0.1-2.0); Eosinophils # 0.1 K/mm3 (0.0-0.4); Eosinophils % 0.8 % (0.1-12.0); Hematocrit 44.9 % (37.0-47.0); Hemoglobin 15.2 g/dL (12.2-16.2); Lymphocytes # 1.5 K/mm3 (0.7-4.5); Lymphocytes % 20.6 % (10-50); Mean Corpuscular HGB Conc 33.8 g/dL (31.8-35.4); Mean Corpuscular Volume 94.6 fl (81-99); Mean Platelet Volume 7.3 fl (7.4-10.4); Monocytes # 0.4 K/mm3 (0.1-1.0); Monocytes % 5.8 % (1.7-9.3); Neutrophils # 5.2 K/mm3 (1.8-7.8); Neutrophils % 72.6 % (37.0-80.0); Platelet Count 199 K/mm3 (142-424); Red Blood Count 4.74 M/mm3 (4.20-5.40); Red Cell Distribution Width 13.8 % (11.5-17.5); White Blood Count 7.2 K/mm3 (4.8-10.8)
--- NOTE | 2018-10-30 08:23 | Progress Note ---
Labor Note - Subjective: Date: 10/30/18 Time: 07:20 regular contraction - Objective: NST:: Reactive Contractions:: every 2-3 minutes Cervical Dilation:: 2-3 Effacement:: 50% Station: -1 Membranes: artificially ruptured Comment:: I ruptured her membranes and there was clear fluid - Fetus: Monitoring?: Yes monitoring type:: External - Assessment: Labor progressing?: Yes Patient Problems: All Active Problems Abdominal pain (Acute) Acute cholecystitis (Acute) Nausea and vomiting during (Acute) Symptomatic cholelithiasis (Acute) GERD (gastroesophageal reflux disease) (Acute) (Acute) Annual physical exam (Acute) - Plan: Anesthesia for epidural?: No Continue to labor down?: Yes Plan for ?: No Continue to monitor?: Yes Start pushing?: No Comment:: She is having regular contractions and she is now 3 cm. The head is low and fluid was clear.
--- NOTE | 2018-10-30 08:25 | History & Physical Report ---
OB - H&P: HPI Antepartum - History of Present Illness Chief complaint: Irregular contractions with changes in her History of present illness: She is a 23-year-old 1 para 0 at 39+ weeks gestational age. She has been having irregular contractions and they are frequent enough that she is extremely fatigued. She is very uncomfortable. As a result of this we have offered her augmentation of labor. - History of Present Criteria for establishing EDC:: LMP confirmed by 1st trimester US care: good care Ultrasounds: normal 1st trimester US, normal mid trimester US Obstetrical complications: none Medical complications: none [facility] History I have reviewed the patient's past medical history: Yes Medical History: Reports:: Lung Disease Denies:: Cancer, Diabetes Mellitus Type 1, Diabetes Mellitus Type 2, Internal Pacemaker, MRSA, Seizures Have you ever received a pneumonia vaccine?: No Have you received a flu vaccine this season?: No Other Surgeries: Yes: Colonoscopy. No: , Pacemaker Amputation: No Fractures: No - *Social History Smoking Status: Never smoker Alcohol Intake: never Alcohol Intake Frequency:: holidays/special occasions only Substance Use Type: denies use Occupational Status: employed *Family Hx:: Cancer, Diabetes, Coronary Artery Disease, Stroke, Hypertension, Hyperlipidemia Para: 0 Review of Systems - Review of Systems Review of systems:: pertinent systems reviewed and negative unless documented below Meds Home Medications Medication Instructions Recorded Confirmed Type 1 tab PO HS 03/20/18 10/30/18 History vitamin,calcium,aiputmdh-avvx-nvzwv acid tablet promethazine 12.5 mg tablet 12.5 mg PO Q6H PRN #14 tab 04/23/18 10/29/18 Rx Ferrous Sulfate 325 mg PO DAILY 09/07/18 10/30/18 History Hydrocodone/Acetaminophen [Lortab 1 tab PO Q6HP PRN #20 tab 09/10/18 10/29/18 Rx 7.5/325mg tablet] Famotidine [Pepcid 20mg Tablet] 20 mg PO DAILY 10/30/18 10/30/18 History Allergies Allergy/AdvReac Type Severity Reaction Status Date / Time No Known Allergies Allergy Verified 10/29/18 15:11 OB - H&P: Exam - Physical Exam Vital signs: Temp Pulse Resp BP Pulse Ox 97.5 F L 56 L 20 120/76 98 10/30/18 07:43 10/30/18 07:43 10/30/18 07:43 10/30/18 07:43 10/30/18 07:43 - Constitutional no acute distress - Routine HEENT Exam Head: Present: normocephalic Eye: Present: EOMI, PERRL ENT: Present: mucous membranes moist - Routine Neck Exam Present: supple, full ROM - Routine Respiratory Exam Absent: accessory muscle use (good air entry bilaterally), respiratory distress, wheezes, crackles - Routine Cardiovascular Exam Present: RRR. Absent: murmur - Routine Abdominal Exam Present: soft, normoactive bowel sounds. Absent: tenderness, distended, guarding - Routine Rectal Exam Patient deferred: visual exam, digital exam - Routine Exam Patient deferred: external exam, groin exam, perineal exam - Routine Extremities Exam Present: full ROM. Absent: cyanosis, edema - Routine Skin Exam Present: intact. Absent: cyanosis - Routine Neurological Exam Present: alert, oriented X3 - Routine Psychiatric Exam Present: normal affect OB - Results - Labs Labs: Short CBC 10/30/18 Range/Units 05:20 WBC 7.2 (4.8-10.8) K/mm3 Hgb 15.2 (12.2-16.2) g/dL Hct 44.9 (37.0-47.0) % Plt Count 199 (142-424) K/mm3 OB - A/P Antepartum (1) Normal delivery at term Current visit: Yes Status: Acute - Additional Plan Planning to breastfeed?: Yes Plan: other Additional Information:: We are augmenting her labor. She is 3 cm. The nonstress test is reactive. We will expect a vaginal delivery.
--- NOTE | 2018-10-30 09:37 | Progress Note ---
[facility] Anesthesia Checklist - Patient Identification Patient Identification: Arm Band, Verbal (Name & ) - Structural Data Admitted From: Home Planned Operative Procedure/s: Labor Epidural Consent for Planned Operative Procedure(s) Verified: Yes Verified Documents: Surgical Consent, History and Physical - Chart Verification Results Verified: CBC - Additional verifications Patient : Yes Anesthesia Reactions: No - Airway Assessment C-Spine Mobility Assessed: Yes TMJ Mobility Assessed: Yes Dentition: Good Dentition - Neurological Assessment Level of Consciousness: Awake Hx Seizures: No Numbness or tingling in extremities: No - Anesthesia Plan Anesthesia Risk discussed: Yes Anesthesia Plan: Verified ASA Class: II Anesthesia Type: Epidural [facility] History I have reviewed the patient's past medical history: Yes Medical History: Denies:: Cancer, Diabetes Mellitus Type 1, Diabetes Mellitus Type 2, Internal Pacemaker, MRSA, Seizures Have you ever received a pneumonia vaccine?: No Have you received a flu vaccine this season?: No Other Surgeries: Yes: Colonoscopy. No: , Pacemaker Amputation: No Fractures: No - *Social History Smoking Status: Never smoker Alcohol Intake: never Alcohol Intake Frequency:: holidays/special occasions only Substance Use Type: denies use Occupational Status: employed *Family Hx:: Cancer, Diabetes, Coronary Artery Disease, Stroke, Hypertension, Hyperlipidemia Para: 0
[2018-10-30 10:14] LABS: Microscopic, Urine URINE MICROSCOPIC (MICROSCOPIC)
--- NOTE | 2018-10-30 10:38 | Progress Note ---
Labor Note - Subjective: Date: 10/30/18 Time: 10:38 regular contraction - Objective: NST:: Reactive Contractions:: every 2-3 minutes Cervical Dilation:: 4 Effacement:: 90% Station: -1 Membranes: artificially ruptured - Fetus: Monitoring?: Yes monitoring type:: External - Assessment: Labor progressing?: Yes Cephalopelvic disproportion?: No Patient Problems: All Active Problems Abdominal pain (Acute) Acute cholecystitis (Acute) Nausea and vomiting during (Acute) Symptomatic cholelithiasis (Acute) GERD (gastroesophageal reflux disease) (Acute) Normal delivery at term (Acute) (Acute) Annual physical exam (Acute) - Plan: Anesthesia for epidural?: Yes Continue to labor down?: Yes Plan for ?: No Continue to monitor?: Yes Start pushing?: No
[2018-10-30 10:47] LABS: Appearance,Urine CLEAR (Clear); Bilirubin,Urine Negative (Negative); Blood, Urine Negative (Negative); Color,Urine YELLOW (Yellow); Glucose,Urine (UA) Negative (Negative); Ketones,Urine Negative (Negative); Leukocyte Esterase,Urine Negative (Negative); PH,Urine 7.5 (5.0-8.5); Protein,Urine Negative (Negative); Specific Gravity, Urine 1.015 (1.005-1.030); Urobilinogen,Urine 0.2 EU/dl (0.2)
[2018-10-30 10:59] LABS: Squamous Epithelial Cell,Urine Occasional #/hpf (0-5); WBC,Urine Occasional #/hpf (0-3)
[2018-10-30 11:00] LABS: Bacteria,Urine Trace /lpf
--- NOTE | 2018-10-30 13:40 | Progress Note ---
Labor Note - Subjective: Date: 10/30/18 Time: 13:40 regular contraction - Objective: NST:: Reactive Contractions:: every 2-3 minutes Cervical Dilation:: 6 Effacement:: 100% Station: 0 Membranes: artificially ruptured - Fetus: Monitoring?: Yes monitoring type:: External - Assessment: Labor progressing?: Yes Cephalopelvic disproportion?: No Patient Problems: All Active Problems Abdominal pain (Acute) Acute cholecystitis (Acute) Nausea and vomiting during (Acute) Symptomatic cholelithiasis (Acute) GERD (gastroesophageal reflux disease) (Acute) Normal delivery at term (Acute) (Acute) Annual physical exam (Acute) - Plan: Anesthesia for epidural?: Yes Continue to labor down?: Yes Plan for ?: No Continue to monitor?: Yes Start pushing?: No
--- NOTE | 2018-10-30 15:42 | Progress Note ---
Labor Note - Subjective: Date: 10/30/18 Time: 15:41 regular contraction - Objective: NST:: Reactive Contractions:: every 2-3 minutes Cervical Dilation:: 7-8 Effacement:: 100% Station: 0 Membranes: artificially ruptured - Fetus: Monitoring?: Yes monitoring type:: External - Assessment: Labor progressing?: Yes Cephalopelvic disproportion?: No Patient Problems: All Active Problems Abdominal pain (Acute) Acute cholecystitis (Acute) Nausea and vomiting during (Acute) Symptomatic cholelithiasis (Acute) GERD (gastroesophageal reflux disease) (Acute) Normal delivery at term (Acute) (Acute) Annual physical exam (Acute) - Plan: Anesthesia for epidural?: Yes Continue to labor down?: Yes Plan for ?: No Continue to monitor?: Yes Start pushing?: No
--- NOTE | 2018-10-30 17:16 | Progress Note ---
Labor Note - Subjective: Date: 10/30/18 Time: 17:16 regular contraction - Objective: NST:: Reactive Contractions:: every 2-3 minutes Cervical Dilation:: 8-9 Effacement:: 100% Station: 0 Membranes: artificially ruptured - Fetus: Monitoring?: Yes monitoring type:: External - Assessment: Labor progressing?: Yes Cephalopelvic disproportion?: No Patient Problems: All Active Problems Abdominal pain (Acute) Acute cholecystitis (Acute) Nausea and vomiting during (Acute) Symptomatic cholelithiasis (Acute) GERD (gastroesophageal reflux disease) (Acute) Normal delivery at term (Acute) (Acute) Annual physical exam (Acute) - Plan: Anesthesia for epidural?: Yes Continue to labor down?: Yes Plan for ?: No Continue to monitor?: Yes Start pushing?: No
--- NOTE | 2018-10-30 19:47 | Progress Note ---
Labor Note - Subjective: Date: 10/30/18 Time: 19:46 irregular contractions, urge to push - Objective: NST:: Reactive Cervical Dilation:: 9-10 Effacement:: 100% Station: +1 Membranes: artificially ruptured - Fetus: Monitoring?: Yes monitoring type:: External - Assessment: Labor progressing?: Yes Cephalopelvic disproportion?: No Patient Problems: All Active Problems Abdominal pain (Acute) Acute cholecystitis (Acute) Nausea and vomiting during (Acute) Symptomatic cholelithiasis (Acute) GERD (gastroesophageal reflux disease) (Acute) Normal delivery at term (Acute) (Acute) Annual physical exam (Acute) - Plan: Anesthesia for epidural?: Yes Continue to labor down?: Yes Plan for ?: No Continue to monitor?: Yes Start pushing?: Yes Comment:: She just has a small anterior lip and unable to push this out of the way so she is going ahead with pushing. She brings her head down fairly well. We will continue with the pushing for now.
--- NOTE | 2018-10-30 20:28 | Progress Note ---
Labor Note - Subjective: Date: 10/30/18 Time: 20:27 regular contraction - Objective: NST:: Reactive Contractions:: every 2-3 minutes Cervical Dilation:: 9-10 Effacement:: 100% Station: +3 Membranes: artificially ruptured - Fetus: Monitoring?: Yes monitoring type:: External - Assessment: Labor progressing?: Yes Cephalopelvic disproportion?: No Patient Problems: All Active Problems Abdominal pain (Acute) Acute cholecystitis (Acute) Nausea and vomiting during (Acute) Symptomatic cholelithiasis (Acute) GERD (gastroesophageal reflux disease) (Acute) Normal delivery at term (Acute) (Acute) Annual physical exam (Acute) - Plan: Anesthesia for epidural?: Yes Continue to labor down?: Yes Plan for ?: No Continue to monitor?: Yes Start pushing?: Yes Continue pushing?: Yes Comment:: She continues to push very well. The baby's head is come down significantly. We will expect a vaginal delivery.
--- NOTE | 2018-10-30 20:55 | Procedure Note ---
- Delivery Note Delivery Date:: 10/30/18 Delivery Time:: 20:38 Anesthesia Type: Epidural Was labor medically induced?: No Infant delivered prior to 39 weeks?: No Infant Gender: Male at 1 minute: 9 at 5 minutes: 10 LAC or MLE?: LAC Delivery Procedure:: She is a 23-year-old 1 para 0 who is 39+5 weeks gestational age. She was having lots of contractions but nothing regular and she had change her cervix from 2-3 cm. As result of that we elected to augment her labor. She was started on IV oxytocin and had her membranes ruptured. Under labor epidural she progressed to full dilation and delivered spontaneously a liveborn male child at 8:38 PM in the evening of October 30, 2018. On deliver the head it was noted that there was a cord around the shoulder. The baby delivered with the cord around the shoulder. The oropharynx and nasopharynx were bulb suction. The baby cried spontaneously. We allowed the cord to continue to pulsate for approximately 1 minute. The cord was then doubly clamped and cut. The baby was placed on the mother's abdomen for further care. The nurses assigned Apgars of 9 at 1 minute and 10 at 5 minutes. We then obtained cord blood as well as cord pH. The pH is currently pending. Using gentle traction on the cord and countertraction the fundus I was able to easily deliver the placenta intact. It had a normal three-vessel cord. She had a small first-degree posterior vaginal laceration that was repaired with interrupted ohmtaf-vp-kqjha 3-0 Vicryl Rapide suture. She has O+ blood, she is rubella immune and was group A streptococcus negative. She plans to breast-feed. 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 Estimated blood loss was approximately 400 cc. Laceration:: vaginal Placental Delivery Description: Spontaneous
[2018-10-31 06:15] LABS: Hematocrit 33.5 % (37.0-47.0); Hemoglobin 11.3 g/dL (12.2-16.2)
--- NOTE | 2018-10-31 08:20 | Progress Note ---
Internal Medicine - PN: Subj *Date: 10/31/18 *Time: 08:19 Interval history: She continues to do well this morning. She is eating and ambulating. She is breast-feeding. Her lochia is normal Exam Vital signs and Labs for Last 24 Hours: Temp Pulse Resp BP Pulse Ox 97.5 F L 56 L 20 120/76 98 10/30/18 07:43 10/30/18 07:43 10/30/18 07:43 10/30/18 07:43 10/30/18 07:43 Laboratory Results - last 24 hr 10/30/18 10:30: Urine Color Yellow, Urine Appearance Clear, Urine pH 7.5, Ur Specific [place] 1.015, Urine Protein Negative, Urine Glucose (UA) Negative, Urine Ketones Negative, Urine Blood Negative, Urine Nitrate Negative, Urine Bilirubin Negative, Urine Urobilinogen 0.2, Ur Leukocyte Esterase Negative, Urine RBC None, Urine WBC Occasional, Ur Squamous Epith Cells Occasional, Urine Bacteria Trace 10/30/18 21:01: Cord ABG pH 7.34 L 10/31/18 06:02: Hgb 11.3 L, Hct 33.5 L I & O for Last 24 hours: Intake & Output 10/28/18 10/29/18 10/30/18 10/31/18 11:59 11:59 11:59 11:59 Weight 162 lb - Constitutional no acute distress Assessment and Plan (1) Normal delivery at term Current visit: Yes Status: Acute Category: Medical Code(s): O80 - Encounter for full-term uncomplicated delivery - Assessment and plan all Dx Assessment and Plan for all problems:: She continues to do well. Her lochia is normal. Her hemoglobin was normal. She is breast-feeding. We will plan to send her home tomorrow.
--- NOTE | 2018-11-01 08:33 | Discharge Summary ---
General - General Admission date:: 10/30/18 Discharge date: 11/01/18 HPI HPI: She is a 23-year-old 1 now para 1 who is 39+ weeks gestational age. She was having irregular contractions and had changed her cervix from 2-3 cm. As a result of that we elected to augment her labor. Hospital Course Hospital Course: She was started on IV oxytocin had her membranes ruptured. Arrest of dilation and delivered spontaneously a liveborn male child at 8:38 PM in the evening October 03, 2018. The weighed 7 pounds 11 ounces and was 20 inches long. He had Apgars of 9 at 1 minute and 10 at 5 minutes. She has done well and has remained afebrile throughout her hospitalization. She is eating and drinking and ambulating. She is breast- feeding. She has O+ blood, she is rubella immune and was group B streptococcus negative. 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 She is discharged home to follow-up with me in 2 weeks time. She will continue with her vitamins and iron. She taking yyxg-vkw-mxijpvp analgesics. Her condition on discharge is stable. Rhogam Administration: Not Indicated Objective Vital signs: Temp Pulse Resp BP Pulse Ox 97.5 F L 56 L 20 120/76 98 10/30/18 07:43 10/30/18 07:43 10/30/18 07:43 10/30/18 07:43 10/30/18 07:43 no acute distress DS: Diagnosis - Discharge Diagnosis (1) Normal delivery at term Status: Acute Discharge Plan - Patient Discharge Instructions ACTIVITY: No heavy lifting DIET: continue same diet - Follow up Plan Follow up with: Hernandez Duarte MD [Staff Physician] - Disposition: Home, Self-Fdc Medications: Home Medications Medication Instructions Recorded Confirmed Type 1 tab PO HS 03/20/18 10/30/18 History vitamin,calcium,txocagen-ndok-zswxz acid tablet promethazine 12.5 mg tablet 12.5 mg PO Q6H PRN #14 tab 04/23/18 10/30/18 Rx Ferrous Sulfate 325 mg PO DAILY 09/07/18 10/30/18 History Hydrocodone/Acetaminophen [Lortab 1 tab PO Q6HP PRN #20 tab 09/10/18 10/30/18 Rx 7.5/325mg tablet] Famotidine [Pepcid 20mg Tablet] 20 mg PO DAILY 10/30/18 10/30/18 History Prescriptions/Medication Reconciliation: Continue vitamin,calcium,pgtzwjyc-rbkz-ohcyt acid tablet 1 tab PO HS promethazine 12.5 mg tablet 12.5 mg PO Q6H PRN #14 tab PRN Reason: nausea and vomiting Ferrous Sulfate 325 mg PO DAILY Hydrocodone/Acetaminophen [Lortab 7.5/325mg tablet] 1 tab PO Q6HP PRN #20 tab PRN Reason: Moderate To Severe Pain Famotidine [Pepcid 20mg Tablet] 20 mg PO DAILY
[2018-11-01 08:42] VITALS: BP 131/78
== END 2018-11-01 12:19 | disposition home or self-care (01) | DRG 807 ==
LOC: OB 04:38
PROVIDERS: ADMIT Nurse Practitioner Obstetrics & Gynecology; ATTEND Nurse Practitioner Obstetrics & Gynecology
CPT/HCPCS: J2405

== ENCOUNTER → 2018-11-13 10:11 | Outpatient (CLI) | payer OTHER, SELFPAY ==
[2018-11-13 10:28] LABS: Urine Pregnancy, HCG Qual. Negative (Negative)
[2018-11-13 10:41] LABS: Basophils % 0.5 % (0.1-2.0); Eosinophils # 0.1 K/mm3 (0.0-0.4); Hemoglobin 14.7 g/dL (12.2-16.2); Lymphocytes # 1.7 K/mm3 (0.7-4.5); Lymphocytes % 26.1 % (10-50); Mean Corpuscular HGB Conc 33.4 g/dL (31.8-35.4); Mean Corpuscular Hemoglobin 31.7 pg (27.0-31.2); Mean Corpuscular Volume 94.7 fl (81-99); Mean Platelet Volume 6.6 fl (7.4-10.4); Monocytes # 0.4 K/mm3 (0.1-1.0); Monocytes % 6.3 % (1.7-9.3); Neutrophils # 4.2 K/mm3 (1.8-7.8); Neutrophils % 65.1 % (37.0-80.0); Platelet Count 300 K/mm3 (142-424); Red Blood Count 4.65 M/mm3 (4.20-5.40); Red Cell Distribution Width 12.4 % (11.5-17.5); White Blood Count 6.4 K/mm3 (4.8-10.8)
[2018-11-13 11:41] LABS: Alanine Aminotransferase 154 U/L (12-78); Albumin Level 3.3 gm/dL (3.4-5.0); Albumin/Globulin Ratio 0.8 (1.1-1.8); Alkaline Phosphatase 284 U/L (46-116); Anion Gap 13.3 mEq/L (5-15); Aspartate Amino Transferase 117 U/L (15-37); Bilirubin,Total 0.4 mg/dL (0.2-1.0); Blood Urea Nitrogen 11 mg/dL (7-18); Calcium 9.1 mg/dL (8.5-10.1); Carbon Dioxide 29 mmol/L (21.0-32.0); Chloride 105 mmol/L (98-107); Creatinine,Serum 0.79 mg/dL (0.55-1.02); Estimated Glomerular Filt Rate 90 ml/min (>60); GFR (African American) 109 ML/MIN (>60); Glucose 82 mg/dL (74-106); Potassium 4.3 mmoL/L (3.5-5.1); Sodium 143 mmol/L (136-145); Total Protein,Serum 7.3 gm/dL (6.4-8.2)
== END ==
PROVIDERS: Visit Provider Surgery
DX: R10.11 Right upper quadrant pain (principal); R10.9 Unspecified abdominal pain; K82.8 Other specified diseases of gallbladder
CPT/HCPCS: 36415; 80053; 81025; 85025

== ENCOUNTER → 2019-02-11 04:10 | Outpatient (CLI) | payer OTHER, SELFPAY ==
--- NOTE | 2019-02-11 04:18 | CT_ITS ---
CT chest wo con INDICATION: Adenopathy, mediastinal adenopathy ITS.REASON: FU ORDERING PHYSICIAN: Antoine Moreno MD PATIENT AGE: 23 years No previous exams are made available for comparison. TECHNIQUE: Axial images are obtained without contrast. Sagittal and coronal reformatted images are reviewed as well. All CT scans at the facility use one or more dose reduction, viz: automated exposure control, ma/kV adjustment per patient size (including targeted exams where dose is matched to indication, i.e. head), or iterative reconstruction technique. FINDINGS: There is extensive mediastinal adenopathy in the paratracheal region, precarinal area, and subcarinal area. These lymph nodes are partially calcified. Right hilar lymph nodes and smaller left hilar lymphadenopathy also noted. No axillary adenopathy. Unremarkable heart size. There is minimal thickening of the pericardium. Small calcified nodule present in the right lung base medially at 4 mm. Additional calcified nodules present in the right lower lobe posteriorly. This calcified nodule lies within a small air cyst. A noncalcified nodule present in the left lower lobe at 6 mm. There is an additional small calcified nodule within an air cyst in the left lower lobe. There are 3 noncalcified nodules in the left lower lobe medially measuring up to 7 mm. In additional calcified nodules present in the left lower lobe medially. No interstitial lung disease apparent. IMPRESSION: 1. Mediastinal and hilar adenopathy with partially calcified lymph nodes. Sarcoidosis is a consideration. 2. There are scattered calcified and noncalcified pulmonary nodules. Some of these nodules have an unusual appearance being within a small pneumatocele. Suggest 6 month follow-up to confirm short-term stability. No effusions or infiltrates. Upper abdominal images are unremarkable. No acute bony anomalies. No axillary adenopathy. IMPRESSION:
== END ==
PROVIDERS: PCP Internal Medicine; Visit Provider Internal Medicine
DX: R59.0 Localized enlarged lymph nodes (principal)
CPT/HCPCS: 71250

== ENCOUNTER → 2019-02-11 11:51 | Outpatient (POV) | payer OTHER, SELFPAY | PROVIDERS: Visit Provider Internal Medicine | DX: Z00.00 Encounter for general adult medical examination without abnormal findings (principal) ==

== ENCOUNTER → 2019-06-18 10:36 | Outpatient (CLI) | payer OTHER, SELFPAY ==
[2019-06-18 10:58] LABS: Basophils % 0.5 % (0.1-2.0); Eosinophils # 0.1 K/mm3 (0.0-0.4); Eosinophils % 1.7 % (0.1-12.0); Hematocrit 41.8 % (37.0-47.0); Hemoglobin 14.4 g/dL (12.2-16.2); Mean Corpuscular HGB Conc 34.4 g/dL (31.8-35.4); Mean Corpuscular Hemoglobin 30.9 pg (27.0-31.2); Mean Corpuscular Volume 89.6 fl (81-99); Monocytes # 0.4 K/mm3 (0.1-1.0); Monocytes % 6.4 % (1.7-9.3); Neutrophils # 4.3 K/mm3 (1.8-7.8); Neutrophils % 62.5 % (37.0-80.0); Platelet Count 304 K/mm3 (142-424); Red Blood Count 4.66 M/mm3 (4.20-5.40); Red Cell Distribution Width 12.6 % (11.5-17.5); White Blood Count 6.9 K/mm3 (4.8-10.8)
[2019-06-18 11:29] LABS: Alanine Aminotransferase 17 U/L (12-78); Albumin Level 3.8 gm/dL (3.4-5.0); Albumin/Globulin Ratio 1.1 (1.1-1.8); Alkaline Phosphatase 86 U/L (46-116); Anion Gap 12.9 mEq/L (5-15); Aspartate Amino Transferase 13 U/L (15-37); Bilirubin,Total 0.4 mg/dL (0.2-1.0); Blood Urea Nitrogen 7 mg/dL (7-18); Calcium 8.8 mg/dL (8.5-10.1); Carbon Dioxide 29 mmol/L (21.0-32.0); Chloride 104 mmol/L (98-107); Estimated Glomerular Filt Rate 123 ml/min (>60); GFR (African American) 149 ML/MIN (>60); Globulin 3.4 gm/dl (1.3-3.2); Glucose 96 mg/dL (74-106); Potassium 3.9 mmoL/L (3.5-5.1); Sodium 142 mmol/L (136-145); Thyroid Stimulating Hormone 1.35 uIU/ml (0.358-3.740); Total Protein,Serum 7.2 gm/dL (6.4-8.2)
[2019-06-19 06:15] LABS: Vitamin D 25 Hydroxy 16.5 ng/mL (30.0-100.0)
[2019-06-20 06:22] LABS: Vitamin B12 527 pg/mL (232-1245)
== END ==
PROVIDERS: Visit Provider Nurse Practitioner Family
DX: Z00.00 Encounter for general adult medical examination without abnormal findings (principal); R53.83 Other fatigue; E55.9 Vitamin D deficiency, unspecified
CPT/HCPCS: 36415; 80053; 82607; 82652; 84443; 85025

== ENCOUNTER → 2019-12-30 09:20 | Outpatient (CLI) | payer OTHER, SELFPAY ==
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
== END ==
LOC: UTC.OUT 09:22 → RAD 09:36
PROVIDERS: PCP Internal Medicine Adolescent Medicine; Visit Provider Nurse Practitioner
DX: S59.912A Unspecified injury of left forearm, initial encounter (principal); W19.XXXA Unspecified fall, initial encounter
CPT/HCPCS: 73090

== ENCOUNTER → 2020-02-29 17:24 | Outpatient (CLI) | payer OTHER, SELFPAY ==
[2020-02-29 18:15] LABS: Coronavirus 19 IgG Antibody Negative (Negative); Coronavirus 19 IgM Antibody Negative (Negative)
== END ==
PROVIDERS: PCP Emergency Medicine; Visit Provider Emergency Medicine
DX: Z03.818 Encounter for observation for suspected exposure to other biological agents ruled out (principal)
CPT/HCPCS: 86328

== ENCOUNTER 2020-04-09 19:20 | Emergency (ER) | payer OTHER, SELFPAY ==
[2020-04-09 19:22] VITALS: BP 122/60; PULSE 94; RESP 14; TEMP 36.2; O2SAT 99; BMI 28.3
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
[2020-04-09 20:10] LABS: Basophils # 0.1 K/mm3 (0-0.2); Basophils % 0.5 % (0.1-2.0); Eosinophils # 0.1 K/mm3 (0.0-0.4); Eosinophils % 1.2 % (0.1-12.0); Hematocrit 40.9 % (37.0-47.0); Hemoglobin 14.3 g/dL (12.2-16.2); Lymphocytes # 2.6 K/mm3 (0.7-4.5); Mean Corpuscular HGB Conc 35.1 g/dL (31.8-35.4); Mean Corpuscular Hemoglobin 32.4 pg (27.0-31.2); Mean Corpuscular Volume 92.5 fl (81-99); Mean Platelet Volume 7.5 fl (7.4-10.4); Monocytes # 0.6 K/mm3 (0.1-1.0); Monocytes % 5.3 % (1.7-9.3); Platelet Count 364 K/mm3 (142-424); Red Blood Count 4.42 M/mm3 (4.20-5.40); Red Cell Distribution Width 13.4 % (11.5-17.5); White Blood Count 10.3 K/mm3 (4.8-10.8)
[2020-04-09 20:15] VITALS: BP 125/61; PULSE 89; RESP 15; TEMP 36.4; O2SAT 98
[2020-04-09 20:16] LABS: Alanine Aminotransferase 16 U/L (12-78); Albumin Level 4.8 g/dl (3.5-5.0); Alkaline Phosphatase 93 U/L (38-126); Aspartate Amino Transferase 27 U/L (14-36); Bilirubin,Indirect 0.3 mg/dL (0.0-0.9); Bilirubin,Total 0.3 mg/dl (0.2-1.3); Bilirubin,Unconjugated 0.3 mg/dL (0.0-1.1); Total Protein,Serum 8.6 g/dl (6.3-8.2)
[2020-04-09 20:20] LABS: Activated Partial Thrombo Time 25.8 seconds (23.6-34.0); INR 1.08 (0.9-1.1)
[2020-04-11 15:23] LABS: HIV Screen 4th Generation wRfx Non Reactive (Non Reactive)
[2020-04-11 16:39] LABS: Hepatitis B Surf Ab Quant 39.8 mIU/mL (Immunity>9.9); Hepatitis B Surface Antigen Negative (Negative); Hepatitis C Antibody <0.1 s/co ratio (0.0-0.9)
== END 2020-04-09 20:15 | disposition home or self-care (01) ==
PROVIDERS: Emergency Medicine; Emergency Provider Emergency Medicine; PCP Emergency Medicine
DX: S61.233A Puncture wound without foreign body of left middle finger without damage to nail, initial encounter (principal); W22.8XXA Striking against or struck by other objects, initial encounter; Y92.69 Other specified industrial and construction area as the place of occurrence of the external cause; Y99.0 Civilian activity done for income or pay; Z88.2 Allergy status to sulfonamides; Z90.49 Acquired absence of other specified parts of digestive tract; Z90.09 Acquired absence of other part of head and neck
CPT/HCPCS: 80076; 85025; 85610; 85730; 86703; 86706; 87340; 87380; 99282; G0432

== ENCOUNTER → 2020-04-20 13:40 | Outpatient (POV) | payer OTHER, SELFPAY | PROVIDERS: PCP Internal Medicine Adolescent Medicine; Visit Provider Dermatology | DX: Z00.00 Encounter for general adult medical examination without abnormal findings (principal) ==

== ENCOUNTER → 2020-05-08 18:16 | Outpatient (CLI) | payer OTHER, SELFPAY ==
--- NOTE | 2020-05-08 | XR_ITS ---
PROCEDURE: XR RIBS LT MIN 3V W CXR1V CLINICAL HISTORY: lt rib pain--hx of lung disease COMPARISON: CXR CHEST(2 VIEWS-NOT PORTABLE) from 09/06/[address] chest wo con from 02/11/2019 FINDINGS: Normal heart size. There is increased soft tissue density in the right paratracheal region in the region of the azygos vein consistent with adenopathy which was present on 02/11/2019 CT scan. No lobar consolidation or collapse. There is a lucency through the lateral aspect of the left 11th rib suggesting a nondisplaced fracture versus an overlying Mach line from the properitoneal fat plane IMPRESSION: 1. Mediastinal adenopathy. 2. Possible left 11th rib fracture versus artifact Dictated b Manny Roy MD 05/09/2020 07:32 Manny Roy MD in [place] 05/09/2020 07:32
== END ==
PROVIDERS: PCP Internal Medicine Adolescent Medicine; Visit Provider Nurse Practitioner Family
DX: R07.81 Pleurodynia (principal)
CPT/HCPCS: 71101

== ENCOUNTER → 2020-05-31 03:36 | Outpatient (CLI) | payer OTHER, SELFPAY ==
[2020-05-31 03:53] VITALS: BMI 29.2
[2020-05-31 05:11] LABS: Coronavirus 19 IgG Antibody Negative (Negative); Coronavirus 19 IgM Antibody Negative (Negative)
[2020-06-01 13:04] LABS: Covid-19 Nasal PCR Sendout Lex NOT DETECTED
== END ==
PROVIDERS: PCP Internal Medicine Adolescent Medicine; Visit Provider Nurse Practitioner
DX: Z03.818 Encounter for observation for suspected exposure to other biological agents ruled out (principal)
CPT/HCPCS: 36415; 86328; U0004

== ENCOUNTER → 2020-07-17 15:27 | Outpatient (CLI) | payer OTHER, SELFPAY ==
[2020-07-17 16:28] LABS: HCG,Quantitative < 2 mIU/ml (0-5.42)
== END ==
PROVIDERS: PCP Internal Medicine Adolescent Medicine; Visit Provider Nurse Practitioner
DX: Z32.00 Encounter for pregnancy test, result unknown (principal)
CPT/HCPCS: 84702

== ENCOUNTER → 2020-07-22 10:06 | Outpatient (CLI) | payer OTHER, SELFPAY ==
[2020-07-22 12:11] LABS: Alanine Aminotransferase 18 U/L (12-78); Albumin Level 3.7 g/dl (3.5-5.0); Albumin/Globulin Ratio 1.2 (1.1-1.8); Alkaline Phosphatase 77 U/L (38-126); Anion Gap 11.2 mEq/L (5-15); Aspartate Amino Transferase 26 U/L (14-36); Bilirubin,Total 0.2 mg/dl (0.2-1.3); Blood Urea Nitrogen 9 mg/dl (7-17); Calcium 9.1 mg/dl (8.4-10.2); Carbon Dioxide 26 mmol/L (22.0-30.0); Chloride 106 mmol/L (98-107); Estimated Glomerular Filt Rate 122 ml/min (>60); GFR (African American) 147 ML/MIN (>60); Globulin 3.2 g/dL (1.3-3.2); Glucose 104 mg/dl (74-100); Magnesium 1.9 mg/dl (1.6-2.3); Potassium 4.2 mmoL/L (3.5-5.1); Sodium 139 mmol/L (136-145); Total Protein,Serum 6.9 g/dl (6.3-8.2)
[2020-07-22 12:12] LABS: Basophils % 0.5 % (0.1-2.0); Eosinophils # 0.2 K/mm3 (0.0-0.4); Hematocrit 40.1 % (37.0-47.0); Hemoglobin 13.4 g/dL (12.2-16.2); Lymphocytes # 1.7 K/mm3 (0.7-4.5); Lymphocytes % 22.7 % (10-50); Mean Corpuscular HGB Conc 33.4 g/dL (31.8-35.4); Mean Corpuscular Hemoglobin 30.7 pg (27.0-31.2); Mean Corpuscular Volume 91.9 fl (81-99); Mean Platelet Volume 7.5 fl (7.4-10.4); Monocytes # 0.4 K/mm3 (0.1-1.0); Neutrophils # 5.2 K/mm3 (1.8-7.8); Neutrophils % 69.6 % (37.0-80.0); Platelet Count 354 K/mm3 (142-424); Red Blood Count 4.36 M/mm3 (4.20-5.40); Red Cell Distribution Width 13.4 % (11.5-17.5); White Blood Count 7.4 K/mm3 (4.8-10.8)
[2020-07-22 12:27] LABS: 25-OH Vitamin D, Total 24.9 ng/mL (30-100)
[2020-07-22 13:00] LABS: Vitamin B12 320 pg/mL (239-931)
[2020-07-22 15:49] LABS: Coronavirus 19 IgG Antibody Negative (Negative); Coronavirus 19 IgM Antibody Negative (Negative)
== END ==
PROVIDERS: PCP Nurse Practitioner Family; Visit Provider Nurse Practitioner Family
DX: Z03.818 Encounter for observation for suspected exposure to other biological agents ruled out (principal); R53.83 Other fatigue; E55.9 Vitamin D deficiency, unspecified
CPT/HCPCS: 80053; 82306; 82607; 83735; 84443; 85025; 86328

== ENCOUNTER → 2020-11-18 09:08 | Outpatient (CLI) | payer OTHER, SELFPAY ==
[2020-11-18 10:48] LABS: HCG,Quantitative < 2 mIU/ml (0-5.42)
== END ==
PROVIDERS: Visit Provider Nurse Practitioner
DX: Z32.00 Encounter for pregnancy test, result unknown (principal)
CPT/HCPCS: 36415; 84702

== ENCOUNTER → 2020-11-30 08:42 | Outpatient (CLI) | payer OTHER, SELFPAY ==
--- NOTE | 2020-11-30 08:50 | XR_ITS ---
PROCEDURE: XR KNEE LT 3V CLINICAL INDICATION: LT ANTERIOR KNEE PAIN COMPARISON: No exams were available for comparison FINDINGS: No fracture or dislocation. No lytic or blastic change. There is normal mineralization. The joint spaces are well-preserved. No significant degenerative/arthritic changes. No erosive changes evident. Other findings:None. IMPRESSION: No acute findings. Dictated by: Dr. Cisco Hillman MD 11/30/2020 10:38 Dr. Cisco Hillman MD in [facility] 11/30/2020 10:38
== END ==
PROVIDERS: PCP Internal Medicine Adolescent Medicine; Visit Provider Nurse Practitioner Family
DX: M25.562 Pain in left knee (principal)
CPT/HCPCS: 73562

== ENCOUNTER → 2020-12-18 12:07 | Outpatient (CLI) | payer OTHER, SELFPAY ==
[2020-12-18 13:49] LABS: HCG,Quantitative 31 mIU/ml (0-5.42)
== END ==
PROVIDERS: Visit Provider Nurse Practitioner
DX: Z34.90 Encounter for supervision of normal pregnancy, unspecified, unspecified trimester (principal)
CPT/HCPCS: 36415; 84702

== ENCOUNTER 2021-01-03 09:00 | Outpatient (CLI) | payer OTHER, SELFPAY | END 2021-01-03 09:32 | disposition home or self-care (01) | PROVIDERS: PCP Internal Medicine Adolescent Medicine; Visit Provider Nurse Practitioner Family | DX: J02.0 Streptococcal pharyngitis (principal) | CPT/HCPCS: 96372; J0561 ==

== ENCOUNTER → 2021-02-14 08:25 | Outpatient (CLI) | payer OTHER, SELFPAY ==
[2021-02-14 09:43] LABS: HCG,Quantitative < 2 mIU/ml (0-5.42)
== END ==
PROVIDERS: Visit Provider Nurse Practitioner
DX: Z32.00 Encounter for pregnancy test, result unknown (principal)
CPT/HCPCS: 36415; 84702

== ENCOUNTER → 2021-02-21 07:31 | Outpatient (CLI) | payer OTHER, SELFPAY ==
[2021-02-21 09:00] LABS: HCG,Quantitative 5 mIU/ml (0-5.42)
== END ==
PROVIDERS: Visit Provider Nurse Practitioner
DX: Z87.59 Personal history of other complications of pregnancy, childbirth and the puerperium (principal)
CPT/HCPCS: 36415; 84702

== ENCOUNTER → 2021-02-23 13:31 | Outpatient (CLI) | payer OTHER, SELFPAY ==
[2021-02-23 13:58] LABS: Basophils % 0.4 % (0.1-2.0); Eosinophils # 0.2 K/mm3 (0.0-0.4); Eosinophils % 2.5 % (0.1-12.0); Hematocrit 34.9 % (37.0-47.0); Hemoglobin 12.3 g/dL (12.2-16.2); Lymphocytes # 2.1 K/mm3 (0.7-4.5); Lymphocytes % 24.2 % (10-50); Mean Corpuscular HGB Conc 35.3 g/dL (31.8-35.4); Mean Corpuscular Hemoglobin 31.3 pg (27.0-31.2); Mean Corpuscular Volume 88.7 fl (81-99); Mean Platelet Volume 7.8 fl (7.4-10.4); Monocytes # 0.5 K/mm3 (0.1-1.0); Monocytes % 5.2 % (1.7-9.3); Neutrophils % 67.8 % (37.0-80.0); Platelet Count 334 K/mm3 (142-424); Red Blood Count 3.93 M/mm3 (4.20-5.40); Red Cell Distribution Width 13.4 % (11.5-17.5); White Blood Count 8.9 K/mm3 (4.8-10.8)
[2021-02-23 14:36] LABS: Free T4 (Free Thyroxine) 0.82 ng/dl (0.78-2.19); Free Thyroxine Index 2.4 ug/dL (5.93-13.13); T4 (Thyroxine) 7.9 ug/dl (5.53-11.0); Triiodothryronine (T3) Uptake 30 % (23.5-40.5)
[2021-02-23 14:49] LABS: Thyroid Stimulating Hormone 1.04 uIU/mL (0.465-4.68)
[2021-02-23 15:09] LABS: Vitamin B12 463 pg/mL (239-931)
[2021-03-06 19:49] LABS: 1,25 Dihydroxy Vitamin D 32 pg/mL (.); 1,25-Dihydroxy, Vitamin D-2 <10 pg/mL (.); 1,25-Dihydroxy, Vitamin D-3 32 pg/mL (.)
== END ==
PROVIDERS: Visit Provider Nurse Practitioner Obstetrics & Gynecology
DX: R53.82 Chronic fatigue, unspecified (principal); D64.9 Anemia, unspecified; E66.9 Obesity, unspecified; Z68.34 Body mass index [BMI] 34.0-34.9, adult
CPT/HCPCS: 36415; 82607; 82652; 84436; 84439; 84443; 84479; 85025

== ENCOUNTER 2021-03-02 08:00 | Emergency (ER) | payer OTHER, SELFPAY ==
[2021-03-02 08:01] VITALS: BP 113/81; PULSE 71; RESP 16; TEMP 36.7; O2SAT 99; BMI 32.8
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
[2021-03-02 09:04] VITALS: BP 121/71; PULSE 75; RESP 16; TEMP 36.8; O2SAT 98
== END 2021-03-02 09:04 | disposition home or self-care (01) ==
PROVIDERS: Emergency Provider Emergency Medicine; PCP Internal Medicine Adolescent Medicine
DX: S63.602A Unspecified sprain of left thumb, initial encounter (principal); S46.912A Strain of unspecified muscle, fascia and tendon at shoulder and upper arm level, left arm, initial encounter; V89.2XXA Person injured in unspecified motor-vehicle accident, traffic, initial encounter; Z88.2 Allergy status to sulfonamides
CPT/HCPCS: 73000; 73030; 73130; 99282

== ENCOUNTER → 2021-04-19 16:36 | Outpatient (CLI) | payer OTHER, SELFPAY ==
[2021-04-19 18:14] LABS: HCG,Quantitative < 2 mIU/ml (0-5.42)
== END ==
PROVIDERS: Visit Provider Nurse Practitioner
DX: Z32.01 Encounter for pregnancy test, result positive (principal)
CPT/HCPCS: 36415; 84702

== ENCOUNTER → 2021-05-03 14:18 | Outpatient (CLI) | payer OTHER, SELFPAY ==
[2021-05-03 15:02] LABS: Adenovirus,PCR Not Detected (NotDetected); Bordetella Pertussis Not Detected (NotDetected); Chlamydophila Pneumoniae, PCR Not Detected (NotDetected); Coronavirus 19, PCR Not Detected (NotDetected); Coronavirus 229E Not Detected (NotDetected); Coronavirus NL63 Not Detected (NotDetected); Coronavirus OC43 Not Detected (NotDetected); Coronovirus HKU1,PCR Not Detected (NotDetected); Human Metapneumovirus Not Detected (NotDetected); Influenza A, PCR Not Detected (NotDetected); Influenza AH1, 2009 Not Detected (NotDetected); Influenza AH1, PCR Not Detected (NotDetected); Influenza AH3,PCR Not Detected (NotDetected); Influenza B, PCR Not Detected (NotDetected); Mycoplasma Pneumoniae, PCR Not Detected (NotDetected); Parainfluenza 1, PCR Not Detected (NotDetected); Parainfluenza 2, PCR Not Detected (NotDetected); Parainfluenza 3, PCR Not Detected (NotDetected); Parainfluenza 4, PCR Not Detected (NotDetected); Rhinovirus/Enterovirus Not Detected (NotDetected)
[2021-05-03 16:19] LABS: Strep Scrn Group A (Rapid) Negative (Negative)
[2021-05-03 21:28] LABS: Respiratory Syncytial Virus Detected (NotDetected)
== END ==
PROVIDERS: Visit Provider Nurse Practitioner
DX: Z11.52 Encounter for screening for COVID-19 (principal); B97.4 Respiratory syncytial virus as the cause of diseases classified elsewhere
CPT/HCPCS: 87430; 87581; 87633; 87798

== ENCOUNTER 2021-05-05 09:05 | Emergency (ER) | payer OTHER, SELFPAY ==
[2021-05-05 09:05] VITALS: BP 116/72; PULSE 72; RESP 18; TEMP 36.9; O2SAT 98; BMI 33.6
--- NOTE | 2021-05-05 09:36 | XR_ITS ---
PROCEDURE: XR CHEST 2V CLINICAL HISTORY: COUGH COMPARISON: CR CXR CHEST(2 VIEWS-NOT PORTABLE) from 08/23/2016 CR CXR CHEST(2 VIEWS-NOT PORTABLE) from 09/06/[address] chest wo con from 02/11/2019 CR XR RIBS LT MIN 3V W CXR1V from 05/08/2020 FINDINGS: Right paratracheal/azygos adenopathy once again noted. The node may be slightly less bulky compared to the previous exam. Normal heart size. The lungs are clear without infiltrates, suspicious nodules, or pleural effusions. No acute bony abnormalities. IMPRESSION: Enlarged node in the right paratracheal/azygos region otherwise negative. No acute finding Dictated by: Manny Roy MD 05/05/2021 10:16 Manny Roy MD in [facility] 05/05/2021 10:16
--- NOTE | 2021-05-05 10:03 | HMH.EDUTC ---
[facility] [place] Clinical Impression: RSV bronchitis Disposition: Home, Self-Care Condition on Discharge: Good Instructions: DI for Respiratory Syncytial Virus -- Adults, DI for Viral Syndrome Additional Instructions: Drink plenty of fluids. Take tylenol or ibuprofen for pain or fever. Take the medications as directed. Follow up with your regular doctor. GO TO THE ER FOR ANY WORSENING SYMPTOMS Prescriptions: predniSONE [Prednisone 20mg Tab] 20 mg PO BID 5 Days #10 tab Transmission Status: Received by [facility] Azithromycin [Z-Feliberto 250mg Tab*] 250 mg PO UD DOSE PK #6 tab Transmission Status: Received by [facility] Referrals: Sharan Jaeger MD [Primary Care Provider] - Forms: Work/School Release Time of Disposition: 10:25 Medical Decision Making - Medical Records Medical records reviewed: No: I reviewed the patient's medical records. - Phani Inquiry Pt receiving controlled substance: No Vital Signs: 05/05/21 09:05 05/05/21 10:11 Temperature 98.5 F 98.5 F Temperature Source Oral Pulse Rate 72 Pulse Rate [Right Brachial] 72 Respiratory Rate 18 18 Blood Pressure 116/72 Blood Pressure [Right Arm] 116/72 Blood Pressure Mean [Right Arm] 86 Blood Pressure Source [Right Arm] Automatic Cuff Blood Pressure Position [Right Arm] Sitting 02 Sat by Pulse Oximetry 98 Oxygen Delivery Method Room Air - Radiology Data #1 Image(s): Chest Image Reviewed: Yes I reviewed the patient's radiology image, Yes I have reviewed radiologist's interpretation Preliminary Findings: Abnormal, No Infiltrates Seen PROCEDURE: XR CHEST 2V CLINICAL HISTORY: COUGH COMPARISON: CR CXR CHEST(2 VIEWS-NOT PORTABLE) from 08/23/2016 CR CXR CHEST(2 VIEWS-NOT PORTABLE) from 09/06/[address] chest wo con from 02/11/2019 CR XR RIBS LT MIN 3V W CXR1V from 05/08/2020 FINDINGS: Right paratracheal/azygos adenopathy once again noted. The node may be slightly less bulky compared to the previous exam. Normal heart size. The lungs are clear without infiltrates, suspicious nodules, or pleural effusions. No acute bony abnormalities. IMPRESSION: Enlarged node in the right paratracheal/azygos region otherwise negative. No acute finding Dictated by: Manny Roy MD 05/05/2021 10:16 Manny Roy MD in [facility] 05/05/2021 10:16 [facility] [place] - General Stated complaint: congestion, fever, cough Time Seen by Provider: 05/05/21 10:03 Mode of Arrival: Ambulatory Source of Information: Patient Limitations: No Limitations Description of Symptoms (Recalled from Triage Doc. by RN): PATIENT C/O FEVER, COUGH, AND CONGESTION X 4 DAYS. TESTED POSITIVE FOR RSV YESTERDAY HEENT Symptoms (Recalled from RN notes): Yes Resp Symptoms (Recalled from RN notes): Yes Skin Symptoms (Recalled from RN notes): No MS Symptoms (Recalled from RN notes): No Functional Status (Recalled from RN notes): WNL - History of Present Illness Provider Complaint: She states that for the past 4 days she has had fever, chills, cough. She has tested negative for covid-19. She tested positive for rsv yesterday. - Related Data Previous Rx's Medication Instructions Recorded bupropion HCl 150 mg 24 hr tablet, 150 mg PO DAILY #90 tab 02/22/21 extended release ergocalciferol (vitamin D2) 1,250 1,250 mcg PO QMONTH #1 cap 03/07/21 mcg (50,000 unit) capsule phentermine 37.5 mg tablet 37.5 mg PO DAILY #30 tab 03/23/21 Azithromycin [Z-Feliberto 250mg Tab*] 250 mg PO UD DOSE PK #6 tab 05/05/21 predniSONE [Prednisone 20mg 20 mg PO BID 5 Days #10 tab 05/05/21 Tab] Allergies Allergy/AdvReac Type Severity Reaction Status Date / Time Sulfa (Sulfonamide Allergy Unknown Verified 02/22/21 14:47 Antibiotics) - Worker's Comp Is this a Worker's Comp case?: No [facility] History - Hepatitis A Screen Drug use history?: No High risk sexual behaviors?: No History of sexually transmitted inf
[2021-05-05 10:11] VITALS: BP 116/72; PULSE 72; RESP 18; TEMP 36.9; O2SAT 98
== END 2021-05-05 10:28 | disposition home or self-care (01) ==
PROVIDERS: Emergency Provider Nurse Practitioner Family; PCP Internal Medicine Adolescent Medicine
DX: J20.5 Acute bronchitis due to respiratory syncytial virus (principal); Z88.2 Allergy status to sulfonamides
CPT/HCPCS: 71046; 99202; G0463

== ENCOUNTER → 2021-05-16 12:34 | Outpatient (CLI) | payer OTHER, SELFPAY ==
--- NOTE | 2021-05-16 12:35 | CT_ITS ---
PROCEDURE: CT CHEST W CON CLINCAL INDICATION: mediastinal adenopathy COMPARISON: CT CHESTWO CT chest wo con from 02/11/2019 TECHNIQUE: IV Contrast: 75ml Isovue 370 Axial images obtained with sagittal and coronal reformats. All CT scans at the facility use one or more dose reduction, viz: automated exposure control, ma/kV adjustment per patient size (including targeted exams where dose is matched to indication, i.e. head), or iterative reconstruction technique. FINDINGS: HEART AND MEDIASTINAL STRUCTURES: Mediastinal adenopathy is once again noted with the largest node in the right paratracheal/azygos region. The maximum AP dimension of the adenopathy is 5 cm maximum transverse dimension 4.4 cm previously 4.9 x 4.3 cm. Largest node is in the azygos area measuring 3.7 x 2.8 cm previously 3.2 by 2.5 cm. There is tracheal shift to the left by approximately 5 mm. Soft tissue density noted in the anterior mediastinum likely due to residual thymic tissue. Subcarinal adenopathy is also present not significantly changed. Stippled calcifications are present within many of the lymph nodes. Small partially calcified hilar nodes are also present. LUNGS AND PLEURAL SPACES: Scattered calcified granulomas are present. No lobar consolidation or collapse. A noncalcified pulmonary nodule is present in the left lower lobe medially 3/37 this measures 9 mm previously 8 mm. An additional small nodules present just superior to this area measuring 4 mm. BONY STRUCTURES: No acute bony abnormalities apparent. UPPER ABDOMEN: Prior cholecystectomy. There is heterogeneous enhancement of the spleen as expected consistent with flow phenomenon. In the medial aspect of the spleen there is some contour deformity with suspected peripheral enhancing lesion measuring 17 mm. It is possible this could be related to the arterial phase enhancement pattern seen in the rest of the spleen. Abdomen CT with hemangioma protocol may confirm if clinically desired. ADDITIONAL FINDINGS: No other significant abnormalities. IMPRESSION: 1. Mediastinal adenopathy slightly more prominent compared to the previous exam. Mediastinal nodes are partially calcified. The calcified nodes could be related to old granulomatous disease. Sarcoidosis is also included in the differential diagnosis. Please correlate with clinical parameters. There are several calcified nodules in the lungs consistent with old granulomatous disease. No pulmonary fibrotic changes are evident and no infiltrates are apparent. There are 2 stable noncalcified nodules in the left lower lobe medially. 2. Possible peripheral enhancing splenic lesion. Is difficult to distinguish this from the normal heterogeneous arterial phase splenic enhancement. CT of the abdomen with hemangioma protocol may confirm this diagnosis if clinically desired. There are no previous enhanced images of the chest or the abdomen. Dictated by: Manny Roy MD 05/17/2021 05:22 Manny Roy MD in [facility] 05/17/2021 05:22
== END ==
PROVIDERS: PCP Internal Medicine Adolescent Medicine; Visit Provider Internal Medicine Pulmonary Disease
DX: R59.0 Localized enlarged lymph nodes (principal)
CPT/HCPCS: 71260; Q9967

== ENCOUNTER → 2021-06-01 08:01 | Outpatient (CLI) | payer OTHER, SELFPAY ==
[2021-06-01 09:59] LABS: Coronavirus 19 IgG Antibody Negative (Negative); Coronavirus 19 IgM Antibody Negative (Negative)
== END ==
PROVIDERS: Visit Provider Nurse Practitioner
DX: Z20.822 Contact with and (suspected) exposure to COVID-19 (principal)
CPT/HCPCS: 36415; 86328

== ENCOUNTER → 2021-06-01 14:57 | Outpatient (CLI) | payer OTHER, SELFPAY ==
[2021-06-01 15:16] LABS: Influenza A, PCR Not Detected (NotDetected); Influenza B, PCR Not Detected (NotDetected)
[2021-06-01 16:05] LABS: Coronavirus 19, PCR Detected (NotDetected)
== END ==
PROVIDERS: PCP Internal Medicine Adolescent Medicine; Referring Provider Nurse Practitioner Family; Visit Provider Internal Medicine Adolescent Medicine
DX: Z20.822 Contact with and (suspected) exposure to COVID-19 (principal); U07.1 COVID-19
CPT/HCPCS: U0003

== ENCOUNTER 2021-06-11 12:21 | Day surgery (SDC) | payer OTHER, SELFPAY ==
[2021-06-11] VITALS (15 sets, daily range): BP systolic 105–130; BP diastolic 49–65; PULSE 64–93; RESP 12–20; TEMP 36.3–43; O2SAT 93–99; BMI 32.8
[2021-06-11 12:44] LABS: Microscopic, Urine URINE MICROSCOPIC (MICROSCOPIC)
[2021-06-11 12:45] LABS: Appearance,Urine CLEAR (Clear); Basophils % 0.3 % (0.1-2.0); Bilirubin,Urine Negative (Negative); Blood, Urine 1+ (Negative); Color,Urine YELLOW (Yellow); Eosinophils # 0.1 K/mm3 (0.0-0.4); Glucose,Urine (UA) Negative (Negative); Hematocrit 40.8 % (37.0-47.0); Ketones,Urine Negative (Negative); Leukocyte Esterase,Urine Negative (Negative); Lymphocytes # 1.9 K/mm3 (0.7-4.5); Lymphocytes % 21.1 % (10-50); Mean Corpuscular HGB Conc 34.3 g/dL (31.8-35.4); Mean Corpuscular Hemoglobin 30.9 pg (27.0-31.2); Mean Corpuscular Volume 90.1 fl (81-99); Mean Platelet Volume 7.1 fl (7.4-10.4); Monocytes # 0.5 K/mm3 (0.1-1.0); Monocytes % 5.4 % (1.7-9.3); Neutrophils # 6.4 K/mm3 (1.8-7.8); Neutrophils % 72.1 % (37.0-80.0); Nitrate,Urine Negative (Negative); PH,Urine 7.5 (5.0-8.5); Platelet Count 334 K/mm3 (142-424); Protein,Urine Negative (Negative); Red Blood Count 4.53 M/mm3 (4.20-5.40); Red Cell Distribution Width 13.1 % (11.5-17.5); Urobilinogen,Urine 0.2 EU/dl (0.2); White Blood Count 8.9 K/mm3 (4.8-10.8)
[2021-06-11 12:47] LABS: Urine Pregnancy, HCG Qual. Negative (Negative)
[2021-06-11 12:48] LABS: Sodium 142 mmol/L (136-145)
[2021-06-11 12:50] LABS: Alanine Aminotransferase 32 U/L (12-78); Aspartate Amino Transferase 29 U/L (14-36); Blood Urea Nitrogen 6 mg/dl (7-17); Estimated Glomerular Filt Rate 121 ml/min (>60); GFR (African American) 146 ML/MIN (>60)
[2021-06-11 12:51] LABS: Albumin Level 4.2 g/dl (3.5-5.0); Albumin/Globulin Ratio 1.3 (1.1-1.8); Alkaline Phosphatase 103 U/L (38-126); Bilirubin,Total 0.7 mg/dl (0.2-1.3); Carbon Dioxide 26 mmol/L (22.0-30.0); Globulin 3.3 g/dL (1.3-3.2); Glucose 103 mg/dl (74-100); Total Protein,Serum 7.5 g/dl (6.3-8.2)
--- NOTE | 2021-06-11 12:58 | CT_ITS ---
PROCEDURE INFORMATION: Exam: CT Abdomen And Pelvis With Contrast Exam date and time: 06/11/2021 12:58 PM Age: 26 years old Clinical indication: Abdominal pain; Other: Right lower/ R/O appendicitis; Additional info: Appendicitis rule out TECHNIQUE: Imaging protocol: Computed tomography of the abdomen and pelvis with contrast. Radiation optimization: All CT scans at this facility use at least one of these dose optimization techniques: automated exposure control; mA and/or kV adjustment per patient size (includes targeted exams where dose is matched to clinical indication); or iterative reconstruction. Contrast material: ISOVUE; Contrast volume: 75 ml; Contrast route: IV; COMPARISON: CT CHEST W CON 05/16/2021 12:43 PM FINDINGS: Lungs: Calcified granuloma noted within the left lung base. Liver: There is a diffuse decrease in hepatic parenchymal density, consistent with mild fatty infiltration. Gallbladder and bile ducts: There has been a cholecystectomy. Pancreas: Normal. No ductal dilation. Spleen: Normal. No splenomegaly. Adrenal glands: Normal. No mass. Kidneys and ureters: Normal. No hydronephrosis. Stomach and bowel: A large amount of stool is noted throughout the colon. Appendix: There is enlargement of the appendix with surrounding inflammatory changes consistent with possible acute appendicitis. Intraperitoneal space: No evidence of pneumoperitoneum you. There is a small amount of free pelvic fluid present. Vasculature: Unremarkable. No abdominal aortic aneurysm. Lymph nodes: No mesenteric or retroperitoneal lymphadenopathy. Urinary bladder: Unremarkable as visualized. Reproductive: A large right adnexal cyst is present measuring 4.0 x 4.1 x 4.2 cm. Heterogeneous appearance of the uterus. Bones/joints: Unremarkable. No acute fracture. Soft tissues: Soft tissues are normal. IMPRESSION: 1. There is enlargement of the appendix with surrounding inflammatory changes consistent with possible acute appendicitis. 2. A large right adnexal cyst is present measuring 4.0 x 4.1 x 4.2 cm. Follow-up pelvic ultrasound is recommended. 3. No evidence of pneumoperitoneum you. 4. No mesenteric or retroperitoneal lymphadenopathy. 5. Heterogeneous appearance of the uterus. 6. There is a small amount of free pelvic fluid present.
[2021-06-11 13:00] LABS: Chloride 105 mmol/L (98-107)
--- NOTE | 2021-06-11 13:29 | PC.NURSE ---
Pt returned from rad.
--- NOTE | 2021-06-11 14:38 | PC.NURSE ---
speaking with ALTA
--- NOTE | 2021-06-11 14:40 | PC.NURSE ---
speaking with Dr Seaman
--- NOTE | 2021-06-11 14:41 | PC.NURSE ---
surgery team paged per dr hernadez
--- NOTE | 2021-06-11 14:45 | HMH.EDGENADL ---
ED Disposition Clinical Impression: Acute appendicitis Qualifiers: Acute appendicitis type: with localized peritonitis Appendicitis gangrene presence: unspecified whether gangrene present Appendicitis perforation presence: unspecified whether perforation present Appendicitis abscess presence: without abscess Qualified Code(s): K35.30 - Acute appendicitis with localized peritonitis, without perforation or gangrene Disposition: Admitted As Inpatient Condition on Discharge: Good Instructions: DI for Acute Abdominal Pain Referrals: Sharan Jaeger MD [Primary Care Provider] - - Critical Care Critical Care Time: No Attestation: On 06/11/21, the high probability of a clinically significant, sudden or life threatening deterioration of the following system(s) required my full and direct attention, intervention and personal management. The time I documented below is in addition to time spent performing reported procedures but includes the following listed in this critical care notation. Medical Decision Making - Medical Records Medical records reviewed: Yes: I reviewed the patient's medical records. - Phani Inquiry Pt receiving controlled substance: No Vital Signs: 06/11/21 12:22 Temperature 98.6 F Temperature Source Oral Pulse Rate [Left Radial] 89 Respiratory Rate 18 Blood Pressure [Right Arm] 111/55 L Blood Pressure Mean [Right Arm] 73 Blood Pressure Source [Right Arm] Automatic Cuff Blood Pressure Position [Right Arm] Sitting 02 Sat by Pulse Oximetry 99 Oxygen Delivery Method Room Air - Lab Data Lab Results 06/11/21 12:30: Urine Color Yellow, Urine Appearance Clear, Urine pH 7.5, Ur Specific [place] 1.020, Urine Protein Negative, Urine Glucose (UA) Negative, Urine Ketones Negative, Urine Blood 1+, Urine Nitrate Negative, Urine Bilirubin Negative, Urine Urobilinogen 0.2, Ur Leukocyte Esterase Negative, Urine RBC 5-10, Urine WBC 3-5, Ur Squamous Epith Cells 3-5, Urine Bacteria None 06/11/21 12:30: WBC 8.9, RBC 4.53, Hgb 14.0, Hct 40.8, MCV 90.1, MCH 30.9, MCHC 34.3, RDW 13.1, Plt Count 334, MPV 7.1 L, Neut % (Auto) 72.1, Lymph % (Auto) 21.1, [place] % (Auto) 5.4, Eos % (Auto) 1.0, Baso % (Auto) 0.3, Neut # (Auto) 6.4, Lymph # (Auto) 1.9, [place] # (Auto) 0.5, Eos # (Auto) 0.1, Baso # (Auto) 0.0 06/11/21 12:30: Urine HCG, Qual Negative 06/11/21 12:30: Sodium 142, Potassium 4.0, Chloride 105, Carbon Dioxide 26, Anion Gap 15.0, BUN 6 L, Creatinine 0.60, Estimated GFR 121, Est GFR ( Amer) 146, Glucose 103 H, Calcium 9.0, Total Bilirubin 0.7, AST 29, ALT 32, Alkaline Phosphatase 103, Total Protein 7.5, Albumin 4.2, Globulin 3.3 H, Albumin/Globulin Ratio 1.3 Result diagrams: 06/11/21 12:30 06/11/21 12:30 Orders (Tests/Meds): ED MEDICATIONS Generic Name Dose Route Start Last Admin Trade Name Freq PRN Reason Stop Dose Admin Sodium Chloride 10 ml 06/11/21 13:26 06/11/21 13:28 Sodium Chloride 0.9% 10ml Syr (Rad Only) IV 07/11/21 13:25 10 ml NEEDED PRN Administration Maintain IV Site Discontinued Medications Generic Name Dose Route Start Last Admin Trade Name Freq PRN Reason Stop Dose Admin Sodium Chloride 1,000 mls @ 999 mls/hr 06/11/21 13:00 06/11/21 13:20 Sod Chlor 0.9% 1000ml Bag IV 06/11/21 14:00 999 mls/hr .Q1H1M OLIVER Administration Iopamidol 50 ml 06/11/21 13:25 06/11/21 13:27 Iopamidol-370 (76%); 50ml Vial IV 06/11/21 13:26 50 ml ONCE ONE Administration Iopamidol 25 ml 06/11/21 13:26 06/11/21 13:27 Iopamidol-370 (76%); 50ml Vial IV 06/11/21 13:27 25 ml ONCE ONE Administration Morphine Sulfate 4 mg 06/11/21 13:00 06/11/21 13:20 Morphine 4mg/Ml Syringe IV 06/11/21 13:01 4 mg ONCE ONE Administration Medical Decision Narrative: Patient is a 26-year-old female presents the ED today for right lower quadrant tenderness. Patient is well-appearing evaluation evaluation no acute distress and vital signs are stable. Patient with sym
--- NOTE | 2021-06-11 14:47 | PC.NURSE ---
1440 CALL FROM ED TO NOTIFY CALL TEAM FOR SURGERY, DR. PATEL ALREADY AWARE 1441 TEST CONSULTANT SURGERY TEAM PAGED 1448 DEXTER GLORIA NOTIFIED 1440 CBAPORFIRIO, CONSTRUCTION PROJECT ADMINISTRATOR 1443 JAVIER MANLEY NOTIFIED
--- NOTE | 2021-06-11 16:22 | HMH.ANESCL ---
[facility] Anesthesia Checklist - Structural Data Admitted From: Emergency Dept Planned Operative Procedure/s: lap appy Consent for Planned Operative Procedure(s) Verified: Yes - Additional verifications Anesthesia Reactions: No Hx Blood Transfusions: No Blood Transfusion Reaction: No - Airway Assessment C-Spine Mobility Assessed: Yes TMJ Mobility Assessed: Yes Dentition: Good Dentition - Neurological Assessment Level of Consciousness: Awake, Alert, Appropriate - Anesthesia Plan Anesthesia Risk discussed: Yes Anesthesia Plan: Verified ASA Class: II Anesthesia Type: General - Preoperative Comments Pre-Operative Comments: emergency [facility] History I have reviewed the patient's past medical history: Yes Medical History: Reports:: Lung Disease Denies:: Cancer, Diabetes Mellitus Type 1, Diabetes Mellitus Type 2, Internal Pacemaker, MRSA, Seizures *Have you ever received a pneumonia vaccine?: No *Have you received a flu vaccine this season?: No Other Medical History: Denies: Blood Transfusion Reaction Anesthesia experience/problems:: none Laterality Cases: Bilateral: Tonsillectomy Other Surgeries: Yes: Cholecystectomy, Colonoscopy, EGD, Other. No: , Pacemaker Amputation: No Fractures: Yes (LEFT WRIST AND ELBOW) - *Social History Smoking Status: Never smoker Alcohol Intake: never Alcohol Intake Frequency:: a few times a month Substance Use Type: denies use *Occupational Status:: employed Housing: house Household Members: spouse, family *Travel in the last 8 weeks: Inside the [place] Family Hx:: Cancer, Diabetes, Coronary Artery Disease, Stroke, Hypertension, Hyperlipidemia
--- NOTE | 2021-06-11 17:16 | P.OP_ITS ---
Date of procedure: 06/11/21 Pre-op Diagnosis:: Appendicitis Right ovarian cyst Post-op Diagnosis:: Same Procedure performed:: Laparoscopic appendectomy Surgeon:: Epifanio Seaman MD ROAD ROLLER ENGINEER:: Kwan Kim Anesthesia: GETA Estimated blood loss (mL): 15 Operative findings:: Thickened appendix with vascular injection Enlarged right ovary/ovarian cyst with associated inflammatory changes (adhered omentum) Note: Intraoperative consultation to Dr. Duarte for evaluation regarding enlarged ovary/ovarian cyst with associated inflammatory changes. Dr. Duarte recommended ongoing outpatient follow-up with serial ultrasound. He will see the patient immediately if she develops symptoms. Operative note:: After informed consent was obtained the patient was taken to the operating room and placed in the supine position. General anesthesia was induced and her abdomen was prepped and draped in a sterile fashion. After infiltration with local anesthetic an infraumbilical incision was made. A Veress needle was placed in position. The abdomen was insufflated. A 12 mm optical trocar was placed in position. Under direct visualization a 5 mm trocar was placed in the suprapubic position and an additional 5 mm trocar was placed in the left lower quadrant. Inflammatory reaction with associated pelvic fluid was noted. A portion of adhered omentum was carefully removed from the ovary/ovarian cyst. Reactive inflammatory changes were noted; however, no definitive sign of infectious process or torsion was seen. Dr. Duarte from the [facility] service completed an intraoperative consultation and recommended serial pelvic ultrasound and outpatient follow-up. The appendix was carefully elevated. The appendix was somewhat thickened and vascular injection was confirmed. No sign of perforation or suppurative changes were seen; however, evidence consistent with definitive early appendicitis was noted. The mesoappendix was carefully taken down with harmonic quinton. An Endopath 45 stapling device was then used to take the appendix at its base. The appendix was placed in a retrieval bag and removed through the infraumbilical trocar site. The right lower quadrant was thoroughly irrigated. No sign of injury or active bleeding was noted. Pneumoperitoneum was released as the trocars were removed. Fascia at the i nfraumbilical trocar site was reapproximated with 0 Ethibond. All wounds were irrigated and skin was closed with 4-0 Monocryl in a mattress fashion to facilitate hemostasis. Dressings were applied and she was transferred to recovery in stable condition after extubation. Condition: stable Disposition: PACU Specimens:: Appendix Complications:: No immediate
--- NOTE | 2021-06-11 17:24 | P.PN_ITS ---
[facility] Anesthesia Record Part I Intake, IV Amount: 1,500 Estimated blood loss (mL): 0 Urine output (mL): 200 Blood Pressure: 112/64 SaO2: 98 Pulse Rate: 86 Respiratory Rate: 12 Temperature: 97.4 F Patient is:: Awake, Stable Stable to PACU at:: 17:20
[2021-06-12 09:19] LABS: Microscopic,Cath URINE MICROSCOPIC (MICROSCOPIC)
[2021-06-12 09:25] LABS: Appearance,Urine/Cath CLEAR (Clear); Bilirubin,Cath Negative (Negative); Blood, Urine/Cath TRACE-I (Negative); Color,Urine/Cath YELLOW (Yellow); Glucose,Urine/Cath (UA) Negative (Negative); Ketones,Urine/Cath Negative (Negative); Leukocyte Esterase,Cath Negative (Negative); Nitrate,Cath Negative (Negative); PH,Urine/Cath 5.5 (5.0-8.5); Protein,Urine/Cath Negative (Negative); Urobilinogen,Cath 0.2 EU/dl (0.2)
[2021-06-12 09:35] LABS: RBC,Urine/Cath Occasional # /hpf (0-3)
--- NOTE | 2021-06-13 14:11 | P.PN_ITS ---
[facility] Anesthesia Record Part II Discharge Time: 17:20 Destination: Surgical Day Care (OP Surgery) PACU nurse assessment reviewed?: Yes Patient Condition:: Good Anesthesia Complications:: None Swallowing reflex intact?: Yes Cyanosis?: No Blood Pressure: 112/64 Pulse Rate: 93 Temperature: 97.4 F Mental Status: Alert & Oriented Pain level:: 0 Nausea and/or vomitting:: None Intake, IV Amount: 0
[2021-06-13 14:12] VITALS: BP 112/64; PULSE 93; TEMP 36.3
== END 2021-06-11 17:34 | disposition home or self-care (01) ==
LOC: ER 06-15 11:04 → SDC 06-15 11:05
PROVIDERS: Emergency Provider Student in an Organized Health Care Education/Training Program; PCP Internal Medicine Adolescent Medicine; Visit Provider Surgery
PROC: 0DTJ4ZZ Resection of Appendix, Percutaneous Endoscopic Approach (ICD-10-PCS; CPT 44970; principal; 2021-06-11 15:30)
DX: K35.30 Acute appendicitis with localized peritonitis, without perforation or gangrene (principal); N83.201 Unspecified ovarian cyst, right side; K66.0 Peritoneal adhesions (postprocedural) (postinfection); J98.4 Other disorders of lung; K21.9 Gastro-esophageal reflux disease without esophagitis; Z80.9 Family history of malignant neoplasm, unspecified; Z83.3 Family history of diabetes mellitus; Z82.49 Family history of ischemic heart disease and other diseases of the circulatory system; Z83.438 Family history of other disorder of lipoprotein metabolism and other lipidemia; Z88.2 Allergy status to sulfonamides
CPT/HCPCS: 44970; 74177; 80053; 81001; 81025; 85025; 96365; 96375; 96376; 99283; J2405; J2710; Q9967

== ENCOUNTER → 2021-08-03 07:46 | Outpatient (CLI) | payer OTHER, SELFPAY ==
--- NOTE | 2021-08-03 07:46 | US_ITS ---
PROCEDURE: US TRANSVAGINAL CLINICAL INDICATION: recommend 6 wk follow up to check Rt. ovary COMPARISON: US OBTV US OB transvaginal from 03/29/[address] ABDOMEN PELVIS W CON from 06/11/2021 FINDINGS: UTERUS: 8cm x 5cmx 4cm with a combined endometrial thickness of 6.5mm LEFT OVARY: [id number] with a volume of 3.6ml. The left ovary is difficult to visualize. Blood flow is present in the left ovary. RIGHT OVARY: [id number] with a volume of 40ml. There is blood flow within the right ovary There is a 4 x 3 cm right ovarian cyst containing low level echoes. IMPRESSION: 4 x 3 cm right ovarian cyst with low level internal echoes which may represent hemorrhagic cyst. Dictated by: Manny Roy MD 08/03/2021 17:35 Manny Roy MD in [facility] 08/03/2021 17:35
== END ==
PROVIDERS: PCP Internal Medicine Adolescent Medicine; Visit Provider Nurse Practitioner Obstetrics & Gynecology
DX: N83.209 Unspecified ovarian cyst, unspecified side (principal)
CPT/HCPCS: 76830

== ENCOUNTER → 2021-08-12 07:20 | Outpatient (CLI) | payer OTHER, SELFPAY ==
[2021-08-12 07:55] LABS: Glucose,Fasting 116 mg/dl (74-100)
[2021-08-12 07:56] LABS: Hemoglobin A1C 4.6 % (4.0-6.0)
[2021-08-12 09:30] LABS: Glucose 1 Hour 200 mg/dL (74-100)
[2021-08-12 11:15] LABS: Glucose 2 Hour 160 mg/dL (74-100)
== END ==
PROVIDERS: Visit Provider Internal Medicine
DX: R73.9 Hyperglycemia, unspecified (principal)
CPT/HCPCS: 36415; 82951; 83036

== ENCOUNTER → 2021-08-18 16:35 | Outpatient (CLI) | payer OTHER, SELFPAY | PROVIDERS: PCP Internal Medicine Adolescent Medicine; Visit Provider Nurse Practitioner Family | DX: R00.2 Palpitations (principal) | CPT/HCPCS: 93225; 93226 ==

== ENCOUNTER → 2022-01-03 17:39 | Outpatient (CLI) | payer OTHER, SELFPAY ==
[2022-01-03 18:26] LABS: HCG,Quantitative < 2 mIU/ml (0-5.42)
== END ==
PROVIDERS: PCP Internal Medicine Adolescent Medicine; Visit Provider Nurse Practitioner Obstetrics & Gynecology
DX: N92.6 Irregular menstruation, unspecified (principal)
CPT/HCPCS: 36415; 84702

== ENCOUNTER → 2022-01-10 16:15 | Outpatient (POV) | payer OTHER, SELFPAY | PROVIDERS: Visit Provider Dermatology | DX: Z00.00 Encounter for general adult medical examination without abnormal findings (principal) ==

== ENCOUNTER → 2022-03-29 07:17 | Outpatient (CLI) | payer OTHER, SELFPAY ==
[2022-03-29 08:44] LABS: Basophils % 0.4 % (0.1-2.0); Eosinophils # 0.2 K/mm3 (0.0-0.4); Eosinophils % 1.7 % (0.1-12.0); Hematocrit 38.1 % (37.0-47.0); Hemoglobin 13.1 g/dL (12.2-16.2); Lymphocytes # 1.5 K/mm3 (0.7-4.5); Lymphocytes % 17.8 % (10-50); Mean Corpuscular HGB Conc 34.2 g/dL (31.8-35.4); Mean Corpuscular Hemoglobin 29.6 pg (27.0-31.2); Mean Corpuscular Volume 86.6 fl (81-99); Mean Platelet Volume 6.9 fl (7.4-10.4); Monocytes # 0.7 K/mm3 (0.1-1.0); Monocytes % 7.9 % (1.7-9.3); Neutrophils # 6.2 K/mm3 (1.8-7.8); Neutrophils % 72.2 % (37.0-80.0); Platelet Count 324 K/mm3 (142-424); Red Blood Count 4.41 M/mm3 (4.20-5.40); Red Cell Distribution Width 13.7 % (11.5-17.5); White Blood Count 8.6 K/mm3 (4.8-10.8)
[2022-03-29 09:12] LABS: Hemoglobin A1C 4.8 % (4.0-6.0)
[2022-03-29 09:35] LABS: Alanine Aminotransferase 23 U/L (12-78); Albumin Level 3.8 g/dl (3.5-5.0); Albumin/Globulin Ratio 1.4 (1.1-1.8); Alkaline Phosphatase 91 U/L (38-126); Aspartate Amino Transferase 21 U/L (14-36); Bilirubin,Total 0.2 mg/dl (0.2-1.3); Blood Urea Nitrogen 9 mg/dl (7-17); Calcium 8.9 mg/dl (8.4-10.2); Carbon Dioxide 26 mmol/L (22.0-30.0); Chloride 105 mmol/L (98-107); Chol/HDL Ratio 3.5 (1-3.5); Cholesterol 137 mg/dl (140-200); Estimated Glomerular Filt Rate 120 ml/min (>60); GFR (African American) 145 ML/MIN (>60); Globulin 2.7 g/dL (1.3-3.2); Glucose 103 mg/dl (74-100); HDL Cholesterol 39 mg/dl (40-60); Sodium 138 mmol/L (136-145); Total Protein,Serum 6.5 g/dl (6.3-8.2); Triglycerides 88 mg/dl (30-150); VLDL Cholesterol 18 mg/dL (0-40)
[2022-03-29 09:47] LABS: Direct LDL Cholesterol 76.78 mg/dL (100-129)
[2022-03-29 09:50] LABS: 25-OH Vitamin D, Total 31.8 ng/mL (30-100)
[2022-03-29 10:05] LABS: Thyroid Stimulating Hormone 1.67 uIU/mL (0.465-4.68)
[2022-03-29 10:24] LABS: Vitamin B12 459 pg/mL (239-931)
== END ==
PROVIDERS: PCP Nurse Practitioner Family; Visit Provider Nurse Practitioner Family
DX: Z00.00 Encounter for general adult medical examination without abnormal findings (principal); R53.83 Other fatigue; R73.9 Hyperglycemia, unspecified; E66.9 Obesity, unspecified; Z68.31 Body mass index [BMI] 31.0-31.9, adult
CPT/HCPCS: 36415; 80053; 80061; 82306; 82607; 83036; 84443; 85025

== ENCOUNTER → 2022-03-30 09:24 | Outpatient (CLI) | payer OTHER, SELFPAY ==
[2022-03-30 10:36] LABS: HCG,Quantitative 170 mIU/ml (0-5.42)
[2022-03-31 08:15] LABS: Progesterone 19.7 ng/mL (.)
== END ==
PROVIDERS: PCP Nurse Practitioner Family; Visit Provider Obstetrics & Gynecology
DX: Z34.90 Encounter for supervision of normal pregnancy, unspecified, unspecified trimester (principal)
CPT/HCPCS: 84144; 84702

== ENCOUNTER → 2022-04-01 11:03 | Outpatient (CLI) | payer OTHER, SELFPAY ==
[2022-04-01 12:20] LABS: HCG,Quantitative 433 mIU/ml (0-5.42)
== END ==
PROVIDERS: PCP Nurse Practitioner Family; Visit Provider Obstetrics & Gynecology
DX: Z34.90 Encounter for supervision of normal pregnancy, unspecified, unspecified trimester (principal)
CPT/HCPCS: 36415; 84702

== ENCOUNTER → 2022-04-05 08:20 | Outpatient (CLI) | payer OTHER, SELFPAY ==
[2022-04-05 09:11] LABS: HCG,Quantitative 2461 mIU/ml (0-5.42)
== END ==
PROVIDERS: PCP Nurse Practitioner Family; Visit Provider Nurse Practitioner
DX: Z32.00 Encounter for pregnancy test, result unknown (principal)
CPT/HCPCS: 36415; 84702

== ENCOUNTER → 2022-04-26 07:07 | Outpatient (CLI) | payer OTHER, SELFPAY ==
[2022-04-26 07:41] LABS: Basophils % 0.3 % (0.1-2.0); Eosinophils # 0.1 K/mm3 (0.0-0.4); Eosinophils % 0.9 % (0.1-12.0); Hematocrit 36.9 % (37.0-47.0); Lymphocytes # 1.4 K/mm3 (0.7-4.5); Lymphocytes % 18.7 % (10-50); Mean Corpuscular HGB Conc 35.3 g/dL (31.8-35.4); Mean Corpuscular Hemoglobin 31.3 pg (27.0-31.2); Mean Corpuscular Volume 88.6 fl (81-99); Monocytes # 0.4 K/mm3 (0.1-1.0); Monocytes % 5.1 % (1.7-9.3); Neutrophils # 5.8 K/mm3 (1.8-7.8); Platelet Count 297 K/mm3 (142-424); Red Blood Count 4.17 M/mm3 (4.20-5.40); Red Cell Distribution Width 13.9 % (11.5-17.5); White Blood Count 7.7 K/mm3 (4.8-10.8)
[2022-04-27 06:11] LABS: Rubella Antibodies, IgG <0.90 index (Immune >0.99)
[2022-04-27 07:13] LABS: HIV Screen 4th Generation wRfx Non Reactive (Non Reactive); Hepatitis B Surface Antigen Negative (Negative); Hepatitis C Antibody 0.2 s/co ratio (0.0-0.9)
[2022-04-27 10:44] LABS: Rapid Plasma Reagin Ab Titer Non Reactive (NonRea<1:1)
== END ==
PROVIDERS: PCP Nurse Practitioner Family; Visit Provider Nurse Practitioner Obstetrics & Gynecology
DX: Z34.90 Encounter for supervision of normal pregnancy, unspecified, unspecified trimester (principal)
CPT/HCPCS: 36415; 85025; 86592; 86703; 86762; 86850; 87340; 87380; G0432

== ENCOUNTER → 2022-07-28 14:54 | Outpatient (CLI) | payer OTHER, SELFPAY ==
--- NOTE | 2022-07-28 14:55 | US_ITS ---
FINAL REPORT CLINICAL HISTORY: 20 week anatomy scan FINDINGS: There is a single live intrauterine gestation. Presentation is breech. The cervix is closed and measures 3.7 cm. Placenta is posterior grade 1. movement is noted. Heartbeat is detected at 150 beats per minute. Three-vessel cord with satisfactory umbilical cord insertion. Four-chamber heart is noted. ABDOMEN: Both kidneys are unremarkable. Stomach is unremarkable. SPINE: No anomalies identified. AMNIOTIC FLUID: Appropriate amount. MEASUREMENTS: ULTRASOUND AGE: 21 weeks 3 days. GESTATION AGE: 21 weeks 0 days. ESTIMATED WEIGHT: 411 g GROWTH PERCENTILE: 60 % BPD: 5.19 cm corresponding to 21 weeks 6 days. OFD: 6.61 cm corresponding to 21 weeks 6 days. HC: 18.67 cm corresponding to 21 weeks 0 days. AC: 16.23 cm corresponding to 21 weeks 3 days. FL: 3.55 cm corresponding to 21 weeks 2 days. CEREBELLUM: 2.04 cm corresponding to 21 weeks 5 days. HUMERUS: 3.34 cm corresponding to 21 weeks 3 days. HC/AC: 1.15 CI: 79% FL/BPD: 68% FL/AC: 22% IMPRESSION: Single living IUP with an ultrasound age of 21 weeks 3 days. Reviewed, Interpreted and Dictated by Yuri Kaiser III, MD Transcribed by Althea Coffman Authenticated and [facility]
== END ==
PROVIDERS: PCP Internal Medicine Adolescent Medicine; Visit Provider Nurse Practitioner Obstetrics & Gynecology
DX: Z3A.20 20 weeks gestation of pregnancy
CPT/HCPCS: 76811

== ENCOUNTER 2022-08-01 08:05 | Emergency (ER) | payer OTHER, SELFPAY ==
--- NOTE | 2022-08-01 08:37 | EXP.UTC ---
Discharge Plan Disposition Patient Disposition: Home, Self-Care Condition: Good Prescriptions Prescriptions: No Action levocetirizine 5 mg tablet 5 mg PO DAILY Classic 28 mg iron- 800 mcg tablet PO DAILY ferrous sulfate 325 mg (65 mg iron) tablet 325 mg PO DAILY Qty: 30 11RF pantoprazole [Protonix] 40 mg tablet,delayed release (DR/EC) 40 mg PO DAILY Qty: 30 2RF Referrals Follow up/Referrals: Sissy Correa APRN [Primary Care Provider] - See instructions Activity Restrictions/Add. Instructions Additional Instructions/Restrictions: Drink plenty of fluids. Take tylenol for pain or fever. Take the medications as directed. Follow up with your regular doctor. 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 GO TO THE ER FOR ANY WORSENING SYMPTOMS Clinical Impressions Clinical Impression: Viral syndrome Stand Alone Forms Stand Alone Forms: Work/School Release Instructions Patient Instructions: DI for Viral Syndrome Discharge ED Provider: Antoine Sadler [facility] General Stated complaint: cough, congestion, sore throat, body aches Time Seen by Provider: 08/01/22 08:37 History of Present Illness Provider Complaint: She states that for the past 2 days she has had malaise, chills, sore throat and sinus congestion. She is . Related Data Home Medications Medication Instructions Recorded Confirmed vits no.126-ferrous fum tab PO DAILY 04/25/22 07/19/22 28 mg iron-folic acid 800 mcg tablet (Classic ) levocetirizine 5 mg tablet 5 mg PO DAILY 06/20/22 07/19/22 Previous Rx's Medication Instructions Recorded pantoprazole 40 mg tablet,delayed 40 mg PO DAILY #30 tabs 06/20/22 release (Protonix) ferrous sulfate 325 mg (65 mg 325 mg PO DAILY #30 tabs 07/19/22 iron) tablet Allergies Allergy/AdvReac Type Severity Reaction Status Date / Time Sulfa (Sulfonamide Allergy Unknown Verified 07/19/22 15:54 Antibiotics) [facility] Medical History Deviated nasal septum Jaw pain Neuralgia and neuritis Screening for genetic disease carrier status Social History Smoking Status: Never smoker alcohol intake: never substance use type: denies use current occupational status: employed Travel in the last 8 weeks: None household members: spouse and family housing: house current occupational exposures/hazards: No caffeine: Yes ROS Obtained: Yes All systems reviewed & no additional complaints except as documented Constitutional Constitutional: Reports chills, Denies fever(s) and Reports poor appetite Eyes Eyes: Denies eye discharge ENT Ears, Nose, Mouth, and Throat: Denies ear discharge, Reports otalgia, Denies hearing loss, Denies sinus pain and Reports sore throat Cardiovascular Cardiovascular: Denies chest pain and Denies dyspnea Respiratory Respiratory: Denies chest congestion, Reports cough and Denies dyspnea Gastrointestinal Gastrointestingal: Denies abdominal pain, diarrhea, nausea or vomiting Musculoskeletal Musculoskeletal: Denies arthralgias Integumentary/Breasts Skin/Breast: Denies rash Physical Exam General General appearance: alert and in no apparent distress Head Head exam: atraumatic, normocephalic and normal inspection Eye Eye exam: Present normal appearance, PERRL and EOMI ENT ENT exam: Present normal exam, normal oropharynx, mucous membranes moist, TM's normal bilaterally and normal external ear exam Neck Neck exam: Present normal inspection, full ROM and trachea midline; Absent meningismus or lymphadenopathy Chest Chest inspection: Present normal inspection and symmetric chest wall rise; Absent tenderness Respiratory Respiratory exam: Present normal lung sounds bilaterally; Absent respiratory distress Cardiovascular Cardiovascular exam: Present regular rate and normal rhythm; Absent JVD
[2022-08-01 09:12] VITALS: BP 115/69; PULSE 79; RESP 18; TEMP 37.2; O2SAT 98; BMI 32.8
[2022-08-01 09:15] VITALS: BP 115/69; PULSE 79; RESP 18; TEMP 37.2
[2022-08-01 09:15] LABS: Adenovirus,PCR Not Detected (NotDetected); Bordetella Pertussis Not Detected (NotDetected); Chlamydophila Pneumoniae, PCR Not Detected (NotDetected); Coronavirus 19, PCR Not Detected (NotDetected); Coronavirus 229E Not Detected (NotDetected); Coronavirus NL63 Not Detected (NotDetected); Coronavirus OC43 Not Detected (NotDetected); Coronovirus HKU1,PCR Not Detected (NotDetected); Human Metapneumovirus Not Detected (NotDetected); Influenza A, PCR Not Detected (NotDetected); Influenza AH1, 2009 Not Detected (NotDetected); Influenza AH1, PCR Not Detected (NotDetected); Influenza AH3,PCR Not Detected (NotDetected); Influenza B, PCR Not Detected (NotDetected); Mycoplasma Pneumoniae, PCR Not Detected (NotDetected); Parainfluenza 1, PCR Not Detected (NotDetected); Parainfluenza 2, PCR Not Detected (NotDetected); Parainfluenza 3, PCR Not Detected (NotDetected); Parainfluenza 4, PCR Not Detected (NotDetected); Respiratory Syncytial Virus Not Detected (NotDetected); Rhinovirus/Enterovirus Not Detected (NotDetected)
[2022-08-01 09:37] LABS: UTC Strep Screen (Rapid) Negative (Negative)
[2022-08-01 09:38] LABS: UTC Influenza A Antigen Negative (Negative); UTC Influenza B Antigen Negative (Negative)
== END 2022-08-01 09:15 | disposition home or self-care (01) ==
PROVIDERS: Emergency Provider Nurse Practitioner Family; PCP Nurse Practitioner Family
DX: R05.9 Cough, unspecified (principal); R09.89 Other specified symptoms and signs involving the circulatory and respiratory systems; J02.9 Acute pharyngitis, unspecified; B34.9 Viral infection, unspecified
CPT/HCPCS: 87581; 87632; 87798; 87804; 87880; 99212; C9803; G0463; U0003; U0005

== ENCOUNTER → 2022-08-04 07:45 | Outpatient (CLI) | payer OTHER, SELFPAY ==
[2022-08-04 08:29] LABS: Coronavirus 19, PCR Not Detected (NotDetected); Influenza A, PCR Not Detected (NotDetected); Influenza B, PCR Not Detected (NotDetected)
== END ==
PROVIDERS: PCP Nurse Practitioner Family; Visit Provider Internal Medicine
DX: Z20.822 Contact with and (suspected) exposure to COVID-19 (principal)
CPT/HCPCS: C9803; U0003; U0005

== ENCOUNTER → 2022-09-11 07:04 | Outpatient (CLI) | payer OTHER, SELFPAY ==
[2022-09-11 07:28] LABS: Glucose,Fasting 95 mg/dl (74-100)
[2022-09-11 08:47] LABS: Glucose 1 Hour 166 mg/dL (74-100)
== END ==
PROVIDERS: PCP Nurse Practitioner Family; Visit Provider Nurse Practitioner Obstetrics & Gynecology
DX: Z34.90 Encounter for supervision of normal pregnancy, unspecified, unspecified trimester (principal)
CPT/HCPCS: 36415; 82951

== ENCOUNTER → 2022-09-12 06:53 | Outpatient (CLI) | payer OTHER, SELFPAY ==
[2022-09-12 07:32] LABS: Glucose,Fasting 89 mg/dl (74-100)
[2022-09-12 08:50] LABS: Glucose 1 Hour 170 mg/dL (74-100)
[2022-09-12 10:17] LABS: Glucose 2 Hour 137 mg/dL (74-100)
[2022-09-12 11:04] LABS: Glucose 3 Hour 98 mg/dL (74-100)
== END ==
PROVIDERS: PCP Nurse Practitioner Family; Visit Provider Nurse Practitioner Obstetrics & Gynecology
DX: Z34.90 Encounter for supervision of normal pregnancy, unspecified, unspecified trimester (principal); Z3A.23 23 weeks gestation of pregnancy
CPT/HCPCS: 36415; 82951

== ENCOUNTER 2022-09-13 08:49 | Outpatient (CLI) | payer OTHER, SELFPAY ==
[2022-09-13 09:09] VITALS: BMI 34.5
[2022-09-13 09:18] VITALS: BP 125/75; PULSE 87; RESP 17; TEMP 36.6; O2SAT 96; BMI 34.5
[2022-09-13 09:34] LABS: Microscopic, Urine URINE MICROSCOPIC (MICROSCOPIC)
[2022-09-13 09:39] LABS: Appearance,Urine SL CLOUDY (Clear); Bilirubin,Urine Negative (Negative); Blood, Urine Negative (Negative); Color,Urine YELLOW (Yellow); Glucose,Urine (UA) Negative (Negative); Ketones,Urine Negative (Negative); Leukocyte Esterase,Urine 3+ (Negative); Nitrate,Urine Negative (Negative); Protein,Urine Negative (Negative); Specific Gravity, Urine 1.015 (1.005-1.030); Urobilinogen,Urine 0.2 EU/dl (0.2)
[2022-09-13 09:51] LABS: Bacteria,Urine 2+ /lpf
[2022-09-13 09:55] LABS: Amphetamine/Metha Screen,Urine Negative ng/ml (<1000); Barbiturates Screen,Urine Negative ng/ml (<200)
[2022-09-13 09:56] LABS: Benzodiazepines Screen,Urine Negative ng/ml (<200)
[2022-09-13 09:57] LABS: Cannabinoid Screen,Urine Negative ng/ml (<50); Methadone Screen,Urine Negative ng/ml (<300)
[2022-09-13 09:58] LABS: Cocaine Screen,Urine Negative ng/ml (<300); Opiate Screen,Urine Negative ng/ml (<300)
[2022-09-13 09:59] LABS: Phencyclidine Screen,Urine Negative ng/ml (<25)
== END 2022-09-13 09:35 | disposition home or self-care (01) ==
LOC: OBOUT 08:51 → OB 08:52
PROVIDERS: PCP Nurse Practitioner Family; Visit Provider Obstetrics & Gynecology
DX: O36.8120 Decreased fetal movements, second trimester, not applicable or unspecified (principal); Z3A.27 27 weeks gestation of pregnancy
CPT/HCPCS: 59025; 80305; 81001; 87086; G0463

== ENCOUNTER → 2022-09-15 13:10 | Outpatient (CLI) | payer OTHER, SELFPAY ==
[2022-09-15 14:24] LABS: Coronavirus 19, PCR Not Detected (NotDetected); Influenza B, PCR Not Detected (NotDetected)
[2022-09-15 14:51] LABS: Influenza A, PCR Detected (NotDetected)
== END ==
PROVIDERS: PCP Nurse Practitioner Family; Visit Provider Internal Medicine
DX: R68.89 Other general symptoms and signs (principal); J09.X2 Influenza due to identified novel influenza A virus with other respiratory manifestations
CPT/HCPCS: C9803; U0003; U0005

== ENCOUNTER 2022-10-15 20:45 | Outpatient (CLI) | payer OTHER, SELFPAY ==
[2022-10-15 20:59] VITALS: BMI 35.7
[2022-10-15 21:03] LABS: Microscopic, Urine URINE MICROSCOPIC (MICROSCOPIC)
[2022-10-15 21:17] LABS: Appearance,Urine CLEAR (Clear); Bilirubin,Urine Negative (Negative); Blood, Urine Negative (Negative); Color,Urine YELLOW (Yellow); Glucose,Urine (UA) Negative (Negative); Ketones,Urine Negative (Negative); Leukocyte Esterase,Urine TRACE (Negative); Nitrate,Urine Negative (Negative); Protein,Urine Negative (Negative); Urobilinogen,Urine 0.2 EU/dl (0.2)
[2022-10-15 21:28] LABS: Barbiturates Screen,Urine Negative ng/ml (<200)
[2022-10-15 21:29] LABS: Amphetamine/Metha Screen,Urine Negative ng/ml (<1000); Benzodiazepines Screen,Urine Negative ng/ml (<200)
[2022-10-15 21:30] LABS: Cannabinoid Screen,Urine Negative ng/ml (<50)
[2022-10-15 21:31] LABS: Cocaine Screen,Urine Negative ng/ml (<300); Methadone Screen,Urine Negative ng/ml (<300)
[2022-10-15 21:32] VITALS: BP 132/73; PULSE 91; RESP 18; TEMP 36.6; O2SAT 97; BMI 35.7
[2022-10-15 21:32] LABS: Opiate Screen,Urine Negative ng/ml (<300); Phencyclidine Screen,Urine Negative ng/ml (<25)
[2022-10-15 21:43] LABS: Bacteria,Urine Trace /lpf; WBC,Urine Occasional #/hpf (0-3)
== END 2022-10-15 22:15 | disposition home or self-care (01) ==
LOC: OBOUT 20:47 → OB 20:47
PROVIDERS: PCP Nurse Practitioner Family; Visit Provider Obstetrics & Gynecology
DX: O47.03 False labor before 37 completed weeks of gestation, third trimester (principal); Z3A.32 32 weeks gestation of pregnancy
CPT/HCPCS: 59025; 80305; 81001; G0463

== ENCOUNTER → 2022-11-10 15:28 | Outpatient (CLI) | payer OTHER, SELFPAY | PROVIDERS: Visit Provider Obstetrics & Gynecology | DX: Z34.90 Encounter for supervision of normal pregnancy, unspecified, unspecified trimester (principal); Z3A.34 34 weeks gestation of pregnancy | CPT/HCPCS: 86403 ==

== ENCOUNTER 2022-12-04 04:42 | Inpatient (IN) | payer OTHER, SELFPAY ==
[2022-12-04 05:05] VITALS: BMI 36.5
[2022-12-04 05:49] LABS: Microscopic, Urine URINE MICROSCOPIC (MICROSCOPIC)
[2022-12-04 05:49] LABS: Coronavirus 19, PCR Not Detected (NotDetected); Influenza A, PCR Not Detected (NotDetected); Influenza B, PCR Not Detected (NotDetected)
[2022-12-04 05:51] LABS: Basophils # 0.1 K/mm3 (0-0.2); Basophils % 0.6 % (0.1-2.0); Eosinophils # 0.2 K/mm3 (0.0-0.4); Eosinophils % 2.2 % (0.1-12.0); Hematocrit 33.4 % (37.0-47.0); Hemoglobin 11.7 g/dL (12.2-16.2); Lymphocytes # 1.7 K/mm3 (0.7-4.5); Lymphocytes % 19.5 % (10-50); Mean Corpuscular HGB Conc 35.1 g/dL (31.8-35.4); Mean Corpuscular Hemoglobin 31.8 pg (27.0-31.2); Mean Corpuscular Volume 90.6 fl (81-99); Mean Platelet Volume 7.7 fl (7.4-10.4); Monocytes # 0.5 K/mm3 (0.1-1.0); Neutrophils # 6.1 K/mm3 (1.8-7.8); Neutrophils % 71.8 % (37.0-80.0); Platelet Count 268 K/mm3 (142-424); Red Blood Count 3.69 M/mm3 (4.20-5.40); Red Cell Distribution Width 14.7 % (11.5-17.5); White Blood Count 8.6 K/mm3 (4.8-10.8)
[2022-12-04 05:51] LABS: Appearance,Urine SL CLOUDY (Clear); Bilirubin,Urine Negative (Negative); Blood, Urine Negative (Negative); Color,Urine YELLOW (Yellow); Glucose,Urine (UA) Negative (Negative); Ketones,Urine Negative (Negative); Leukocyte Esterase,Urine 1+ (Negative); Nitrate,Urine Negative (Negative); PH,Urine 6.5 (5.0-8.5); Protein,Urine Negative (Negative); Specific Gravity, Urine 1.015 (1.005-1.030); Urobilinogen,Urine 0.2 EU/dl (0.2)
[2022-12-04 05:59] LABS: Amorphous Sediment,Urine Trace /lpf; Bacteria,Urine 2+ /lpf; RBC,Urine Occasional #/hpf (0-3); Squamous Epithelial Cell,Urine 50-100 #/hpf (0-5); WBC,Urine 20-50 #/hpf (0-3)
[2022-12-04 06:04] VITALS: BP 119/78; PULSE 80; RESP 19; TEMP 36.6; O2SAT 96; BMI 36.5
[2022-12-04 06:04] LABS: Amphetamine/Metha Screen,Urine Negative ng/ml (<1000); Barbiturates Screen,Urine Negative ng/ml (<200); Benzodiazepines Screen,Urine Negative ng/ml (<200); Cannabinoid Screen,Urine Negative ng/ml (<50)
[2022-12-04 06:05] LABS: Cocaine Screen,Urine Negative ng/ml (<300)
[2022-12-04 06:06] LABS: Methadone Screen,Urine Negative ng/ml (<300)
[2022-12-04 06:07] LABS: Opiate Screen,Urine Negative ng/ml (<300); Phencyclidine Screen,Urine Negative ng/ml (<25)
--- NOTE | 2022-12-04 09:44 | EXP.LABOR.NO ---
Labor Note Subjective: Date: 12/04/22 Time: 08:30 regular contraction Objective: NST:: Reactive Contractions:: every 2-3 minutes Cervical Dilation:: 2-3 Effacement:: 50% Station: -2 Membranes: artificially ruptured Fetus: Monitoring?: Yes monitoring type:: External Assessment: Labor progressing?: Yes Cephalopelvic disproportion?: No All Active Problems (Updated 11/30/22 @ 16:15 by Hernandez Duarte MD) Rib pain on left side (Acute) Viral syndrome (Acute) (Acute) Screening for genetic disease carrier status (Acute) Neuralgia and neuritis (Acute) Jaw pain (Acute) Deviated nasal septum (Acute) Symptomatic cholelithiasis (Acute) GERD (gastroesophageal reflux disease) (Acute) Plan: Anesthesia for epidural?: No Continue to labor down?: Yes Plan for ?: No Continue to monitor?: Yes Start pushing?: No Comment:: I ruptured her membranes and there was clear fluid. She is areli well. The nonstress test is reactive. We will expect a vaginal delivery.
--- NOTE | 2022-12-04 10:12 | EXP.HP ---
History of Present Illness *Admission Date: 12/04/22 *Reason for visit:: Term *History of present illness: She is a 27-year-old 3 para 1 aborta 1 at 39+ weeks gestational age. She elected to have induction of labor at term. [facility] Disclaimer: The information contained in this section may have been updated after the patient was seen, as this information can be updated by other users. Medical History Deviated nasal septum Jaw pain Neuralgia and neuritis Rib pain on left side Screening for genetic disease carrier status Surgical History History of appendectomy History of cholecystectomy Family History Substance abuse Diabetes Coronary artery disease Hyperlipidemia Heart attack Bleeding disorder Cancer Hypertension Stroke Social History Smoking Status: Never smoker alcohol intake: never substance use type: denies use current occupational status: employed Travel in the last 8 weeks: None household members: spouse and family housing: house current occupational exposures/hazards: No caffeine: Yes do you feel safe at home: Yes victim of physical abuse: No victim of emotional abuse: No victim of sexual abuse: No Review of Systems Review of Systems Review of systems:: pertinent systems reviewed and negative unless documented below Meds Home Medications and Allergies Home Medications Medication Instructions Recorded Confirmed Type vits no.126-ferrous fum 1 tab PO DAILY Supplement 04/25/22 12/04/22 History 28 mg iron-folic acid 800 mcg tablet (Classic ) ferrous sulfate 325 mg (65 mg 325 mg PO DAILY Supplement 12/04/22 12/04/22 History iron) tablet New Prescriptions to Start Prescriptions: Allergies Allergy/AdvReac Type Severity Reaction Status Date / Time Sulfa (Sulfonamide Allergy Unknown Verified 11/30/22 16:00 Antibiotics) Exam Data for Last 24 hours Vital signs and Labs for Last 24 Hours: Temp Pulse Resp BP Pulse Ox 97.8 F 80 19 119/78 96 12/04/22 06:04 12/04/22 06:04 12/04/22 06:04 12/04/22 06:04 12/04/22 06:04 Laboratory Results - last 24 hr 12/04/22 05:15: Urine Color Yellow, Urine Appearance Sl cloudy, Urine pH 6.5, Ur Specific [place] 1.015, Urine Protein Negative, Urine Glucose (UA) Negative, Urine Ketones Negative, Urine Blood Negative, Urine Nitrate Negative, Urine Bilirubin Negative, Urine Urobilinogen 0.2, Ur Leukocyte Esterase 1+ A, Urine RBC Occasional, Urine WBC 20-50, Ur Squamous Epith Cells 50-100, Amorphous Sediment Trace, Urine Bacteria 2+ 12/04/22 05:15: Urine Opiates Screen Negative, Urine Methadone Screen Negative, Ur Barbituates Screen Negative, Ur Phencyclidine Scrn Negative, Ur Amphetamines Screen Negative, U Benzodiazepines Scrn Negative, Urine Cocaine Screen Negative, U Marijuana (THC) Screen Negative 12/04/22 05:22: SARS-CoV-2 (PCR) Not detected, Influenza A Untype (PCR) Not detected, Influenza Type B (PCR) Not detected 12/04/22 05:40: WBC 8.6, RBC 3.69 L, Hgb 11.7 L, Hct 33.4 L, MCV 90.6, MCH 31.8 H, MCHC 35.1, RDW 14.7, Plt Count 268, MPV 7.7, Neut % (Auto) 71.8, Lymph % (Auto) 19.5, [place] % (Auto) 6.0, Eos % (Auto) 2.2, Baso % (Auto) 0.6, Neut # (Auto) 6.1, Lymph # (Auto) 1.7, [place] # (Auto) 0.5, Eos # (Auto) 0.2, Baso # (Auto) 0.1 12/04/22 05:40: Blood Type O Positive, Antibody Screen Negative I & O for Last 24 hours: Intake & Output 12/01/22 12/02/22 12/03/22 12/04/22 11:59 11:59 11:59 11:59 Weight 206 lb Constitutional Constitutional: no acute distress *Routine HEENT Exam Head: Present normocephalic Eye: Present EOMI and PERRL ENT: Present mucous membranes moist *Routine Neck Exam Neck: Present supple; Absent lymphadenopathy *Routine Respira
--- NOTE | 2022-12-04 11:28 | EXP.LABOR.NO ---
Labor Note Subjective: Date: 12/04/22 Time: 10:45 regular contraction Objective: NST:: Reactive Contractions:: every 2-3 minutes Cervical Dilation:: 4 Effacement:: 50% Station: -2 Membranes: artificially ruptured Fetus: Monitoring?: Yes monitoring type:: External Assessment: Labor progressing?: Yes Cephalopelvic disproportion?: No All Active Problems (Updated 12/04/22 @ 10:13 by Hernandez Duarte MD) Normal delivery (Acute) Rib pain on left side (Acute) Viral syndrome (Acute) (Acute) Screening for genetic disease carrier status (Acute) Neuralgia and neuritis (Acute) Jaw pain (Acute) Deviated nasal septum (Acute) Symptomatic cholelithiasis (Acute) GERD (gastroesophageal reflux disease) (Acute) Plan: Anesthesia for epidural?: Yes Continue to labor down?: Yes Plan for ?: No Continue to monitor?: Yes Start pushing?: No Comment:: She continues to do well. She just had her epidural. The nonstress test is reactive. She is areli regularly. Her cervix is changed to 4 cm.
--- NOTE | 2022-12-04 13:41 | EXP.LABOR.NO ---
Labor Note Subjective: Date: 12/04/22 Time: 13:41 regular contraction Objective: Contractions:: every 2-3 minutes Cervical Dilation:: 5 Effacement:: 90% Station: 0 Membranes: artificially ruptured Fetus: Monitoring?: Yes monitoring type:: External Assessment: Labor progressing?: Yes Cephalopelvic disproportion?: No All Active Problems (Updated 12/04/22 @ 10:13 by Hernandez Duarte MD) Normal delivery (Acute) Rib pain on left side (Acute) Viral syndrome (Acute) (Acute) Screening for genetic disease carrier status (Acute) Neuralgia and neuritis (Acute) Jaw pain (Acute) Deviated nasal septum (Acute) Symptomatic cholelithiasis (Acute) GERD (gastroesophageal reflux disease) (Acute) Plan: Anesthesia for epidural?: Yes Continue to labor down?: Yes Plan for ?: No Continue to monitor?: Yes Start pushing?: No Comment:: She continues to do well. She is progressing. She has her epidural and feels comfortable. The nonstress test is reactive. Her contractions are every 3 to 4 minutes.
--- NOTE | 2022-12-04 15:10 | EXP.LABOR.NO ---
Labor Note Subjective: Date: 12/04/22 Time: 15:10 regular contraction Objective: NST:: Reactive Contractions:: every 2-3 minutes Cervical Dilation:: 8 Effacement:: 90% Station: 0 Membranes: artificially ruptured Fetus: Monitoring?: Yes monitoring type:: External Assessment: Labor progressing?: Yes Cephalopelvic disproportion?: No All Active Problems (Updated 12/04/22 @ 10:13 by Hernandez Duarte MD) Normal delivery (Acute) Rib pain on left side (Acute) Viral syndrome (Acute) (Acute) Screening for genetic disease carrier status (Acute) Neuralgia and neuritis (Acute) Jaw pain (Acute) Deviated nasal septum (Acute) Symptomatic cholelithiasis (Acute) GERD (gastroesophageal reflux disease) (Acute) Plan: Anesthesia for epidural?: Yes Continue to labor down?: Yes Plan for ?: No Continue to monitor?: Yes Start pushing?: No Comment:: She continues to do well. We will expect a vaginal delivery.
--- NOTE | 2022-12-04 17:06 | EXP.LABOR.NO ---
Labor Note Subjective: Date: 12/04/22 Time: 17:06 regular contraction Objective: NST:: Reactive Contractions:: every 2-3 minutes Cervical Dilation:: 9-10 Effacement:: 100% Station: +1 Membranes: artificially ruptured Fetus: Monitoring?: Yes monitoring type:: External Assessment: Labor progressing?: Yes Cephalopelvic disproportion?: No Plan: Anesthesia for epidural?: Yes Continue to labor down?: Yes Plan for ?: No Continue to monitor?: Yes Start pushing?: Yes Additional information:: She is 9+ centimeters of the small anterior lip. I was able to push the lip out of the way so we will go ahead and start pushing. She feels a lot of pressure. We will expect a vaginal delivery.
--- NOTE | 2022-12-04 17:35 | EXP.LABOR.NO ---
Labor Note Subjective: Date: 12/04/22 Time: 17:35 Objective: NST:: Reactive Contractions:: every 2-3 minutes Cervical Dilation:: 9-10 Effacement:: 100% Station: +1 Membranes: artificially ruptured Fetus: monitoring type:: External Assessment: Labor progressing?: Yes Cephalopelvic disproportion?: No Plan: Anesthesia for epidural?: Yes Continue to labor down?: Yes Plan for ?: No Continue to monitor?: Yes Start pushing?: Yes Continue pushing?: No Comment:: We have started pushing but the baby's head needs to descend some more. I do not want to wear her out with pushing so will let the contractions do their work. The nonstress test is reactive. The baby does not seem to be in any distress. She is tolerating the labor well. We will give her a little more time and then see if we can get this baby's head to come down more before we start pushing again.
--- NOTE | 2022-12-04 18:51 | EXP.LABOR.NO ---
Labor Note Subjective: Date: 12/04/22 Time: 18:51 Objective: NST:: Reactive Contractions:: every 2-3 minutes Cervical Dilation:: 9-10 Effacement:: 100% Station: +2 Membranes: artificially ruptured Fetus: Monitoring?: Yes monitoring type:: External Assessment: Labor progressing?: No Cephalopelvic disproportion?: Yes Plan: Anesthesia for epidural?: Yes Continue to labor down?: No Plan for ?: Yes Continue to monitor?: Yes Continue pushing?: No Comment:: She has been pushing for the last couple of hours and really has shown no downward progress of the head. There is significant molding and caput. There really is not any descent of the head with pushing. I suspect that the baby is OP. Given this fact we will go ahead and plan a . There is no evidence of distress. The nonstress test is reactive. She has continued to have regular contractions.
--- NOTE | 2022-12-04 19:14 | EXP.LABOR.NO ---
Labor Note Subjective: Date: 12/04/22 Time: 19:14 regular contraction Objective: NST:: Reactive Contractions:: every 2-3 minutes Cervical Dilation:: 9-10 Effacement:: 100% Station: +2 Membranes: artificially ruptured Fetus: Monitoring?: Yes monitoring type:: External Assessment: Labor progressing?: No Cephalopelvic disproportion?: Yes Plan: Anesthesia for epidural?: Yes Continue to labor down?: No Plan for ?: Yes Continue to monitor?: Yes Start pushing?: No Continue pushing?: No Comment:: She really has not progressed at all and she is very uncomfortable. Despite the contractions her baby's head is still quite high. It is too high for forceps or vacuum. As result of that we will go ahead and perform a for pelvic disproportion. We discussed the risks of surgery that includes bleeding, infection, injuries to the bowel and bladder. Discussed the rare risk of DVT. All questions were answered and consents were signed.
--- NOTE | 2022-12-04 20:05 | SUR.OPER ---
2004- viable infant female born at this time
--- NOTE | 2022-12-04 20:47 | EXP.OP.NOTE ---
Date of procedure: 12/04/22 Pre-op Diagnosis:: Term , pelvic disproportion Post-op Diagnosis:: Term , pelvic disproportion Procedure performed:: Primary lower segment transverse section Surgeon:: Hernandez Duarte MD [id number] Consultant(s):: Dr. Sanches SLEEPING BAG FILLER:: Kwan Kim Anesthesia: epidural Estimated blood loss (mL): 700 Clinical Note:: She is a 27-year-old 3 para 1 aborta 1 who was 39+ weeks gestational age. She elected for induction of labor at term. She was started on IV oxytocin and progressed to full dilation. Despite pushing for almost 2 hours she could not descend the head. As result of that pelvic disproportion was diagnosed and she was taken for a primary lower segment transverse section. The risks and benefits of surgery were discussed with the patient and her family prior to surgery. Operative findings:: She delivered a liveborn female child at 8:05 PM in the evening of December 04, 2022. The baby had Apgars of 8 at 1 minute and 9 at 5 minutes. Baby weighed 8 pounds 5 ounces and was 21 inches long. Ovaries and tubes appeared normal. Uterus. Normal. Operative note:: She was taken to the operating room where epidural anesthesia was found be adequate. She was prepped and draped in normal sterile fashion in the supine position. A Whitt catheter was in the bladder. A Pfannenstiel skin incision was made with knife then carried through to the underlying layer of fascia with cautery. The fascia was opened in the midline with cautery and extended laterally using James scissors. [place] clamps were applied to the superior aspect of the fascial incision which was tented up and the underlying rectus muscles dissected off using cautery. The [place] clamps were then applied to the inferior aspect of the fascial incision which in a similar fashion was tented up and the underlying rectus muscles dissected off using cautery. The rectus muscles were then in the midline, the peritoneum identified, and entered bluntly. An Miller retractor was then inserted into the abdominal cavity. Transverse incision was made through the uterine muscle above the bladder flap to the amnion. This incision was then extended superiorly and inferiorly using the fingers as traction. The amnion was entered sharply with knife. There was thin meconium amniotic fluid. The 's head was then delivered atraumatically. This was followed by the anterior shoulder and the rest of the 's body atraumatically. The oropharynx and nasopharynx were DeLee suctioned. The was vigorous so we allowed the cord to continue to pulsate for approximately 1 minute. The cord was then doubly clamped and cut. The was then handed off to Dr. escobar who assigned Apgars of 8 at 1 minute and 9 at 5 minutes. We then obtained cord blood. Using gentle traction on the cord and fundal massage I was able to easily deliver the placenta intact. It had a normal three-vessel cord. The uterus was then cleared of clots and debris . The uterine incision was then closed using running 0 Vicryl suture in a locked fashion. I had previously placed a suture at the opposite side. This second layer of the same suture was used to imbricate the first layer. There was a small amount of bleeding along the medial aspect of the incision and I used [id number] sutures here to obtain excellent hemostasis. The bladder peritoneum was then closed using running 2-0 Vicryl suture in a locked fashion. Prior to closure of the bladder peritoneum I inserted a large piece of Gelfoam. The gutters and cul-de-sac were then cleared of clots and debris . Once again hemostasis was assured. The fascia was closed using running #1 Vicryl suture. The subcutaneous tissues were then irrigated with warm water followed by closure Fabi's fascia using running 2-0 Monocryl suture. The skin was closed with running subcuticular 2-0 Monocryl strata fix suture. I then cleaned the skin w
[2022-12-04 20:55] VITALS: BP 139/76; PULSE 91; RESP 17; TEMP 36.6; O2SAT 99
--- NOTE | 2022-12-04 21:02 | P.PNANES_ITS ---
[facility] Anesthesia Record Part I Anesthesia Record I Intake, IV Amount: 1,500 Estimated blood loss (mL): 700 Urine output (mL): 250 Blood Pressure: 136/75 SaO2: 95 Pulse Rate: 88 Respiratory Rate: 12 Temperature: 98 F Patient is:: Awake and Stable Stable to PACU at:: 20:55
[2022-12-04 21:03] VITALS: BP 136/75; PULSE 88; RESP 12; TEMP 36.6; O2SAT 95
[2022-12-04 21:05] VITALS: BP 137/72; PULSE 92; RESP 17; O2SAT 95
[2022-12-04 21:15] VITALS: BP 141/84; PULSE 80; RESP 17; O2SAT 95
[2022-12-04 21:25] VITALS: BP 135/83; PULSE 80; RESP 17; O2SAT 97
[2022-12-04 22:18] LABS: Microscopic,Cath URINE MICROSCOPIC (MICROSCOPIC)
[2022-12-04 22:20] LABS: Appearance,Urine/Cath CLEAR (Clear); Bilirubin,Cath Negative (Negative); Blood, Urine/Cath 3+ (Negative); Color,Urine/Cath YELLOW (Yellow); Glucose,Urine/Cath (UA) Negative (Negative); Ketones,Urine/Cath Negative (Negative); Leukocyte Esterase,Cath Negative (Negative); Nitrate,Cath Negative (Negative); Protein,Urine/Cath Negative (Negative); Specific Gravity, Urine/Cath <= 1.005 (1.005-1.030); Urobilinogen,Cath 0.2 EU/dl (0.2)
[2022-12-04 22:30] LABS: Squamous Epithelial Ur./Cath Occasional #/hpf (0-5); WBC,Urine/Cath Occasional #/hpf (0-3)
[2022-12-05 07:04] LABS: Basophils % 0.1 % (0.1-2.0); Eosinophils % 0.3 % (0.1-12.0); Hematocrit 28.5 % (37.0-47.0); Lymphocytes % 8.7 % (10-50); Mean Corpuscular Hemoglobin 32.2 pg (27.0-31.2); Mean Platelet Volume 8.3 fl (7.4-10.4); Monocytes # 0.6 K/mm3 (0.1-1.0); Monocytes % 4.6 % (1.7-9.3); Neutrophils # 10.4 K/mm3 (1.8-7.8); Neutrophils % 86.3 % (37.0-80.0); Platelet Count 218 K/mm3 (142-424); Red Cell Distribution Width 14.6 % (11.5-17.5); White Blood Count 12.1 K/mm3 (4.8-10.8)
[2022-12-05 07:08] LABS: MANUAL DIFFERENTIAL MANUAL DIFFERENTIAL (MANUAL DIFF)
[2022-12-05 07:11] VITALS: RESP 18
[2022-12-05 07:36] LABS: Anisocytosis 1+; Hypochromasia 1+; Lymphocytes % 8 % (10-50); Monocytes % 2 % (2-9); Neutrophils % 90 % (42-76); Platelet Estimate Normal; Total Cells Counted 100
[2022-12-05 10:06] VITALS: RESP 18
--- NOTE | 2022-12-05 10:08 | P.PN_ITS ---
Subjective *Date: 12/05/22 *Time: 10:08 Interval history: She is doing well this morning. She still has some cramps as a result of the oxytocin. We will stop that this morning. She did have a tap block yesterday. She has not started breast-feeding yet but will start in the next few hours when she is 12 hours post surgery. Medical Exam Vital signs and Labs for Last 24 Hours: Vital Signs Temp Pulse Pulse Resp BP BP Pulse Ox 12/05/22 10:06 18 12/05/22 07:11 18 12/04/22 21:25 80 17 135/83 97 12/04/22 21:15 80 17 141/84 H 95 12/04/22 21:05 92 H 17 137/72 95 12/04/22 20:55 97.8 F 91 H 17 139/76 99 12/04/22 21:03 98 F 88 12 136/75 Intake and Output 12/04/22 12/05/22 12/05/22 19:59 03:59 11:59 Intake Total 1500 / 1500 Output Total 300 / 300 Balance 1500 / 1200 -300 / 1200 Intake: Intake, Total IV Amount 1500 / 1500 Output: Output, Urine Amount 300 / 300 Other: Number of Voids 1 Laboratory Results - last 24 hr 12/04/22 19:40: Urine Color Yellow, Urine Appearance Clear, Urine pH 7.0, Ur Specific [place] <= 1.005, Urine Protein Negative, Urine Glucose (UA) Negative, Urine Ketones Negative, Urine Blood 3+, Urine Nitrate Negative, Urine Bilirubin Negative, Urine Urobilinogen 0.2, Ur Leukocyte Esterase Negative, Urine RBC None, Urine WBC Occasional, Ur Squamous Epith Cells Occasional, Urine Bacteria None 12/05/22 06:50: WBC 12.1 H D, RBC 3.10 L, Hgb 10.0 L, Hct 28.5 L, MCV 92.0, MCH 32.2 H, MCHC 35.0, RDW 14.6, Plt Count 218, MPV 8.3, Neut % (Auto) 86.3 H, Lymph % (Auto) 8.7 L, [place] % (Auto) 4.6, Eos % (Auto) 0.3, Baso % (Auto) 0.1, Neut # (Auto) 10.4 H, Lymph # (Auto) 1.0, [place] # (Auto) 0.6, Eos # (Auto) 0.0, Baso # (Auto) 0.0, Total Counted 100, Neutrophils % (Manual) 90 H, Lymphocytes % (Manual) 8 L, Monocytes % (Manual) 2, Platelet Estimate Normal, Hypochromasia 1+, Anisocytosis 1+ I & O for Labs for Last 24 Hours: Intake & Output 12/02/22 12/03/22 12/04/22 12/05/22 11:59 11:59 11:59 11:59 Intake Total 1500 / 1500 Output Total 300 / 300 Balance 1200 / 1200 Weight 206 lb Microbiology Reports for the Last 24 Hours: Microbiology 12/04/22 05:15 Urine,Clean Catch Urine Culture - Preliminary NO GROWTH AFTER 24 HOURS Head: Present atraumatic ENT: Present normal exam Neck: Present normal inspection Respiratory: Present normal respiratory effort; Absent accessory muscle use Assessment and Plan *Assessment and plan (1) pelvic disproportion delivered: Status: Acute Category: Medical Code(s): O33.9 - Maternal care for disproportion, unspecified (2) delivery delivered: Status: Acute Category: Medical Code(s): O82 - Encounter for delivery without indication Plan She is doing very well. We will stop her oxytocin. She will start breast- feeding. We will plan to send her home in 24 to 48 hours.
[2022-12-05 15:49] VITALS: RESP 18
[2022-12-05 15:57] VITALS: BP 117/63; PULSE 90; RESP 17; TEMP 36.7; O2SAT 98
[2022-12-05 18:25] VITALS: RESP 18
[2022-12-06 05:00] VITALS: BP 134/61; PULSE 59; RESP 18; TEMP 36.4; O2SAT 100
--- NOTE | 2022-12-06 12:04 | EXP.ACUTE.PN ---
Subjective *Date: 12/06/22 *Time: 08:40 Interval history: She continues to do well this morning. Her pain is much better controlled. She did have a tap block. She is breast-feeding and this morning is pumping. She denies any fever or chills. Her hemoglobin is stable. Medical Exam Vital signs and Labs for Last 24 Hours: Vital Signs Temp Pulse Resp BP Pulse Ox 12/06/22 05:00 97.5 F L 59 L 18 134/61 100 12/05/22 18:25 18 12/05/22 15:57 98.1 F 90 17 117/63 98 12/05/22 15:49 18 I & O for Labs for Last 24 Hours: Intake & Output 12/04/22 12/05/22 12/06/22 12/07/22 11:59 11:59 11:59 11:59 Intake Total 1500 / 1500 Output Total 300 / 300 Balance 1200 / 1200 Weight 206 lb Microbiology Reports for the Last 24 Hours: Microbiology 12/04/22 05:15 Urine,Clean Catch Urine Culture - Final NO GROWTH AFTER 48 HOURS Head: Present atraumatic Neck: Present normal inspection Respiratory: Present normal respiratory effort; Absent accessory muscle use Assessment and Plan *Assessment and plan (1) delivery delivered: Status: Acute Category: Medical Code(s): O82 - Encounter for delivery without indication (2) pelvic disproportion delivered: Status: Acute Category: Medical Code(s): O33.9 - Maternal care for disproportion, unspecified Plan She is doing very well. Her pain is reasonably well controlled. We will plan to send her home tomorrow.
[2022-12-07 04:54] VITALS: BP 104/62; PULSE 74; RESP 18; TEMP 36.8; O2SAT 97
[2022-12-07 07:21] LABS: Microscopic, Urine URINE MICROSCOPIC (MICROSCOPIC)
[2022-12-07 07:22] LABS: Appearance,Urine CLEAR (Clear); Bilirubin,Urine Negative (Negative); Blood, Urine 3+ (Negative); Color,Urine YELLOW (Yellow); Glucose,Urine (UA) Negative (Negative); Ketones,Urine Negative (Negative); Leukocyte Esterase,Urine Negative (Negative); Nitrate,Urine Negative (Negative); Protein,Urine Negative (Negative); Urobilinogen,Urine 0.2 EU/dl (0.2)
[2022-12-07 08:28] LABS: Bacteria,Urine Trace /lpf
[2022-12-07 08:31] VITALS: BP 131/67; PULSE 92; RESP 17; TEMP 36.7; O2SAT 99
--- NOTE | 2022-12-07 08:35 | EXP.DC.SUM ---
General Admission date:: 12/04/22 Discharge date: 12/07/22 HPI HPI HPI: She is a 27-year-old 3 para 1 aborta 1 at 39+ weeks gestational age. She elected to have induction of labor at term. Hospital Course Hospital Course Hospital Course: She was started on IV oxytocin had her membranes ruptured. She progressed to full dilation and despite more than 2 hours of pushing she made no progress. The head was not engaged in the pelvis and we elected to perform a primary lower segment transverse section. She delivered a liveborn female child by section at 8:05 PM in the evening of December 04, 2022. The baby weighed 8 pounds 5 ounces and was 21 inches long. She had Apgars of 8 at 1 minute and 9 at 5 minutes. She has done well postoperatively and has remained afebrile throughout her hospitalization. She is eating and drinking and ambulating. She is breast-feeding. Her lochia is normal. Her pain is reasonably well controlled. She has O+ blood, she is rubella nonimmune and was group B streptococcus negative. 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 Sapp. She is discharged home to follow-up with me in approximately 2 weeks time. She will continue with her vitamins and iron. She was given a prescription for Percocet 5/325 number 20 tablets. She was given the usual instructions with respect to limiting her activity, driving and sexual activity. She was given instructions with respect to wound care. Her condition on discharge is stable and improved. Exam Data for Last 24 hours Vital signs and Labs for Last 24 Hours: Temp Pulse Resp BP Pulse Ox 98.2 F 74 18 104/62 L 97 12/07/22 04:54 12/07/22 04:54 12/07/22 04:54 12/07/22 04:54 12/07/22 04:54 Laboratory Results - last 24 hr 12/07/22 07:14: Urine Color Yellow, Urine Appearance Clear, Urine pH 6.0, Ur Specific [place] 1.020, Urine Protein Negative, Urine Glucose (UA) Negative, Urine Ketones Negative, Urine Blood 3+, Urine Nitrate Negative, Urine Bilirubin Negative, Urine Urobilinogen 0.2, Ur Leukocyte Esterase Negative, Urine RBC 10-20, Urine WBC None, Ur Squamous Epith Cells 3-5, Urine Bacteria Trace I & O for Last 24 hours: Intake & Output 12/04/22 12/05/22 12/06/22 12/07/22 11:59 11:59 11:59 11:59 Intake Total 1500 / 1500 Output Total 300 / 300 Balance 1200 / 1200 Weight 206 lb Microbiology Reports for the Last 24 Hours: Microbiology 12/04/22 05:15 Urine,Clean Catch Urine Culture - Final NO GROWTH AFTER 48 HOURS Constitutional Constitutional: no acute distress *Routine HEENT Exam Head: Present normocephalic *Routine Neck Exam Neck: Present full ROM *Routine Respiratory Exam Respiratory: Present normal respiratory effort; Absent accessory muscle use *Routine Abdominal Exam Abdominal: Present soft and normoactive bowel sounds; Absent tenderness Comments: Her and her incision is clean and dry. *Routine Extremities Exam Extremities: Present edema (She has 1-2+ edema lower extremities) and full ROM Results Data Completed and Pending Labs on day of discharge: Labs from last 24 hours 12/07/22 07:14 Urine Color Yellow Urine Appearance Clear Urine pH 6.0 Ur Specific [place] 1.020 Urine Protein Negative Urine Glucose (UA) Negative Urine Ketones Negative Urine Blood 3+ Urine Nitrate Negative Urine Bilirubin Negative Urine Urobilinogen 0.2 Ur Leukocyte Esterase Negative Urine RBC 10-20 Urine WBC None Ur Squamous Epith Cells 3-5 Urine Bacteria Trace DS: Diagnosis Discharge Diagnosis (1) delivery delivered: Status: Acute (2) pelvic disproportion delivered: Status: Acute Meds Home Medications and Allergies Home Medications Medication Instructions Recorded Confirmed Type vits no.126-ferrous fum 1 tab PO DAILY Supplement 04/25/22 12/04/22 History 28 mg iron-folic acid 800 mcg tablet (Classic )
--- NOTE | 2022-12-08 16:09 | P.PNANES_ITS ---
[facility] Anesthesia Record Part II Anesthesia Record Part II Discharge Time: 21:25 (12/04/22) Destination: Obstetric PACU nurse assessment reviewed?: Yes Patient Condition:: Good Anesthesia Complications:: None Swallowing reflex intact?: Yes Cyanosis?: No Blood Pressure: 135/83 Pulse Rate: 80 Temperature: 97.8 F Mental Status: Alert & Oriented Pain level:: 0 Nausea and/or vomitting:: None Intake, IV Amount: 0
[2022-12-08 16:11] VITALS: BP 135/83; PULSE 80; TEMP 36.6
== END 2022-12-07 12:02 | disposition home or self-care (01) | DRG 788 ==
PROVIDERS: Admitting Provider Nurse Practitioner Obstetrics & Gynecology; PCP Nurse Practitioner Family; Visit Provider Nurse Practitioner Obstetrics & Gynecology
PROC: 10D00Z1 Extraction of Products of Conception, Low, Open Approach (ICD-10-PCS; CPT 59514; principal; 2022-12-04 19:30)
DX: O32.4XX0 Maternal care for high head at term, not applicable or unspecified; Z37.0 Single live birth; Z3A.39 39 weeks gestation of pregnancy
CPT/HCPCS: 59514; 36415; 59025; 80305; 81001; 82800; 85007; 85025; 86850; 87086; 90707; 94761; C9803; G0283; J2405; U0003; U0005

== ENCOUNTER → 2023-02-27 15:57 | Outpatient (POV) | payer OTHER, SELFPAY | PROVIDERS: Visit Provider Dermatology | DX: Z00.00 Encounter for general adult medical examination without abnormal findings (principal) ==

== ENCOUNTER → 2023-03-29 14:54 | Outpatient (CLI) | payer OTHER, SELFPAY ==
--- NOTE | 2023-03-29 15:03 | CT_ITS ---
FINAL REPORT TECHNIQUE: Axial images were obtained from the lung apex to the mid abdomen by computed tomography. Coronal reformatted images were obtained. This study was performed with techniques to keep radiation doses as low as reasonably achievable, (ALARA). Individualized dose reduction techniques using automated exposure control or adjustment of mA and/or kV according to the patient''s size were employed. CLINICAL HISTORY: F/U from prior ct chest in 2020 COMPARISON: 05/16/2021 FINDINGS: There is no axillary adenopathy. There are multiple enlarged, calcified mediastinal nodes and calcified hilar nodes. These appear stable as compared to the prior exam and likely represent sequela of prior granulomatous disease. Heart size is normal. There is no pericardial or pleural effusion. Bilateral calcified pulmonary granulomas are seen. There is no new mass or nodule. Limited images of the upper abdomen demonstrate changes of cholecystectomy. IMPRESSION: Stable mediastinal and hilar nodes. No pulmonary mass or nodule. Reviewed, Interpreted and Dictated by Yuri Kaiser III, MD Transcribed by Nora Delarosa Authenticated and [facility]
== END ==
PROVIDERS: PCP Nurse Practitioner Family; Visit Provider Internal Medicine Pulmonary Disease
DX: R59.0 Localized enlarged lymph nodes (principal); R91.8 Other nonspecific abnormal finding of lung field
CPT/HCPCS: 71250

== ENCOUNTER → 2023-04-24 13:46 | Outpatient (CLI) | payer OTHER, SELFPAY ==
--- NOTE | 2023-04-24 13:46 | US_ITS ---
PROCEDURE: US TRANSVAGINAL CLINICAL INDICATION: iud in place COMPARISON: No exams were available for comparison FINDINGS: Transvaginal sonographic images of the pelvis were obtained. UTERUS: 9cm x 6cmx 4cm with a combined endometrial thickness of 7.7mm. Within the uterine cavity there is a IUD in the correct position. There is a cystic area adjacent to her scar that measures 6.4 mm x 5.9 mm LEFT OVARY: [id number] with a volume of 2ml. RIGHT OVARY: 4.4 cmx 4.3 cmx3.7 cm with a volume of 36.7ml. Within the right ovary there is a follicle measuring 3.8 cm x 3.7 cm x 3.1 cm. Both ovaries are seen and appear normal. Doppler flow to both ovaries are seen. There is no fluid in the cul-de-sac. IMPRESSION: 1. Anteverted uterus normal in shape and size. The endometrium measures 7.7 mm 2. There is an IUD in the correct position within the uterine cavity. 3. The right ovary has a prominent follicle measuring 3.8 cm. 4. There is a small cystic area in the lower aspect of the uterine scar. Would suggest a test. Two images show what appears to be a small yolk sac within this cystic area. Dictated by: Hernandez Duarte MD 04/24/2023 15:53 Hernandez Duarte MD in OV 04/24/2023 15:53
== END ==
PROVIDERS: PCP Nurse Practitioner Family; Visit Provider Nurse Practitioner Obstetrics & Gynecology
DX: Z97.5 Presence of (intrauterine) contraceptive device (principal)
CPT/HCPCS: 76830

== ENCOUNTER → 2023-04-25 07:44 | Outpatient (CLI) | payer OTHER, SELFPAY ==
[2023-04-25 08:48] LABS: HCG,Quantitative < 2 mIU/ml (0-5.42)
== END ==
PROVIDERS: PCP Nurse Practitioner Family; Visit Provider Nurse Practitioner Obstetrics & Gynecology
DX: Z32.00 Encounter for pregnancy test, result unknown (principal)
CPT/HCPCS: 36415; 84702

== ENCOUNTER 2023-10-15 14:28 | Outpatient (POV) | payer OTHER, SELFPAY | END 2023-10-15 23:59 | disposition home or self-care (01) | LOC: SC 14:30 | PROVIDERS: Visit Provider Specialist/Technologist | DX: Z00.00 Encounter for general adult medical examination without abnormal findings (principal) ==

== ENCOUNTER 2024-02-19 10:27 | Outpatient (CLI) | payer OTHER, SELFPAY ==
[2024-02-19 10:51] LABS: Basophils % 0.7 % (0.1-2.0); Eosinophils # 0.1 K/mm3 (0.0-0.4); Eosinophils % 1.5 % (0.1-12.0); Hematocrit 39.6 % (37.0-47.0); Hemoglobin 13.2 g/dL (12.2-16.2); Lymphocytes # 1.8 K/mm3 (0.7-4.5); Lymphocytes % 33.3 % (10-50); Mean Corpuscular HGB Conc 33.4 g/dL (31.8-35.4); Mean Corpuscular Hemoglobin 30.9 pg (27.0-31.2); Mean Corpuscular Volume 92.6 fl (81-99); Mean Platelet Volume 7.8 fl (7.4-10.4); Monocytes # 0.3 K/mm3 (0.1-1.0); Monocytes % 5.8 % (1.7-9.3); Neutrophils # 3.2 K/mm3 (1.8-7.8); Neutrophils % 58.8 % (37.0-80.0); Platelet Count 252 K/mm3 (142-424); Red Blood Count 4.28 M/mm3 (4.20-5.40); Red Cell Distribution Width 15.2 % (11.5-17.5); White Blood Count 5.4 K/mm3 (4.8-10.8)
[2024-02-19 11:14] LABS: Alanine Aminotransferase 21 U/L (12-78); Albumin Level 4.1 g/dl (3.5-5.0); Albumin/Globulin Ratio 1.6 (1.1-1.8); Alkaline Phosphatase 68 U/L (38-126); Anion Gap 13.8 mEq/L (5-15); Aspartate Amino Transferase 24 U/L (14-36); Bilirubin,Total 0.7 mg/dl (0.2-1.3); Blood Urea Nitrogen 10 mg/dl (7-17); Calcium 8.9 mg/dl (8.4-10.2); Carbon Dioxide 25 mmol/L (22.0-30.0); Chloride 104 mmol/L (98-107); Chol/HDL Ratio 3.2 (1-3.5); Cholesterol 180 mg/dl (140-200); Estimated Glomerular Filt Rate 119 ml/min (>60); GFR (African American) 144 ML/MIN (>60); Globulin 2.5 g/dL (1.3-3.2); Glucose 99 mg/dl (74-100); HDL Cholesterol 57 mg/dl (40-60); Potassium 3.8 mmoL/L (3.5-5.1); Sodium 139 mmol/L (136-145); Total Protein,Serum 6.6 g/dl (6.3-8.2); Triglycerides 107 mg/dl (30-150); VLDL Cholesterol 21 mg/dL (0-40)
[2024-02-19 11:25] LABS: Direct LDL Cholesterol 101.65 mg/dL (100-129)
[2024-02-19 11:29] LABS: 25-OH Vitamin D, Total 26.6 ng/mL (30-100)
[2024-02-19 13:13] LABS: Hemoglobin A1C 4.3 % (4.0-6.0)
[2024-02-19 15:10] LABS: HCG Qualitative, Serum Negative (Negative)
[2024-02-20 15:12] LABS: Deamidated Gliadin Abs, IgA 10 units (0-19); Deamidated Gliadin Abs, IgG 3 units (0-19); Endomysial IgA Antibody Negative (Negative); Tissue Transglutaminase IgA Ab <2 U/mL (0-3); Tissue Transglutaminase IgG Ab <2 U/mL (0-5)
[2024-02-22 10:44] LABS: Reticulin IgA Antibody Negative titer (Neg:<1:2.5)
== END 2024-02-19 23:59 | disposition home or self-care (01) ==
PROVIDERS: PCP Nurse Practitioner Family; Visit Provider Family Medicine
DX: Z00.00 Encounter for general adult medical examination without abnormal findings (principal); E55.9 Vitamin D deficiency, unspecified
CPT/HCPCS: 36415; 80053; 80061; 82306; 83036; 83516; 84703; 85025; 86255; 86256

== ENCOUNTER 2024-09-04 11:10 | Day surgery (SDC) | payer OTHER, SELFPAY ==
[2024-09-02 10:49] VITALS: BMI 27.4
[2024-09-04 11:23] VITALS: BP 106/67; PULSE 78; RESP 16; TEMP 36.6; O2SAT 99
[2024-09-04 11:28] LABS: Urine Pregnancy, HCG Qual. Negative (Negative)
[2024-09-04] MEDS: LACTATED RINGERS 1000ML 1,000 ML 25 ML IV (11:30)
--- NOTE | 2024-09-04 11:37 | P.PNANES_ITS ---
[facility] Disclaimer: The information contained in this section may have been updated after the patient was seen, as this information can be updated by other users. Medical History IUD (intrauterine device) in place Eustachian tube dysfunction Hilar lymphadenopathy Mediastinal lymphadenopathy Rib pain on left side Viral syndrome Screening for genetic disease carrier status Neuralgia and neuritis Jaw pain Deviated nasal septum GERD (gastroesophageal reflux disease) Symptomatic cholelithiasis Surgical History (Updated 09/04/24 @ 11:25 by Rupa Singh RN) History of tonsillectomy and adenoidectomy Delivery by section History of appendectomy History of cholecystectomy Family History Other Bleeding disorder Cancer Coronary artery disease Diabetes Heart attack Hyperlipidemia Hypertension Stroke Substance abuse Social History (Updated 09/04/24 @ 11:25 by Rupa Singh RN) Smoking Status: Never smoker alcohol intake: never substance use type: denies use current occupational status: employed Travel in the last 8 weeks: None household members: spouse and family housing: house current occupational exposures/hazards: No caffeine: Yes do you feel safe at home: Yes victim of physical abuse: No victim of emotional abuse: No victim of sexual abuse: No [facility] Anesthesia Checklist Patient Identification Patient Identification: Verbal (Name & ) Structural Data Admitted From: Home Planned Operative Procedure/s: colonoscopy Consent for Planned Operative Procedure(s) Verified: Yes NPO Status Verified Time NPO: 00:00 Additional verifications Anesthesia Reactions: No Hx Blood Transfusions: No Blood Transfusion Reaction: No Airway Assessment Mallampati Score:: Class II C-Spine Mobility Assessed: Yes TMJ Mobility Assessed: Yes Dentition: Good Dentition Neurological Assessment Level of Consciousness: Awake, Alert and Appropriate Anesthesia Plan Anesthesia Risk discussed: Yes Anesthesia Plan: Verified ASA Class: II Anesthesia Type: MAC
--- NOTE | 2024-09-04 11:46 | EXP.HP ---
History of Present Illness *Admission Date: 09/04/24 *Reason for visit:: Personal history of adenomatous polyp *History of present illness: Mrs. Walter is a 29-year-old female who is here for follow-up surveillance colonoscopy. She did have a colonoscopy in 2018 and had a rectal tubular adenoma removed. She does have a history of IBS and dyspepsia. The examination is deemed medically necessary for colonoscopy. The patient has been seen, interviewed and examined prior to the procedure by both myself and the anesthesia provider. [facility] Disclaimer: The information contained in this section may have been updated after the patient was seen, as this information can be updated by other users. Medical History (Updated 09/04/24 @ 11:47 by Umang Cortes II, MD) IUD (intrauterine device) in place Eustachian tube dysfunction Hilar lymphadenopathy Mediastinal lymphadenopathy Rib pain on left side Viral syndrome Screening for genetic disease carrier status Neuralgia and neuritis Jaw pain Deviated nasal septum GERD (gastroesophageal reflux disease) Symptomatic cholelithiasis Surgical History (Updated 09/04/24 @ 11:25 by Rupa Singh RN) History of tonsillectomy and adenoidectomy Delivery by section History of appendectomy History of cholecystectomy Family History Other Bleeding disorder Cancer Coronary artery disease Diabetes Heart attack Hyperlipidemia Hypertension Stroke Substance abuse Social History (Updated 09/04/24 @ 11:25 by Rupa Singh RN) Smoking Status: Never smoker alcohol intake: never substance use type: denies use current occupational status: employed Travel in the last 8 weeks: None household members: spouse and family housing: house current occupational exposures/hazards: No caffeine: Yes do you feel safe at home: Yes victim of physical abuse: No victim of emotional abuse: No victim of sexual abuse: No Other Medical History Have you received the Flu Vaccine for this season: No Have you received the Pneumonia Vaccine: No Review of Systems Review of Systems Review of systems (narrative): Negative *Cardiovascular Comments: Negative *Gastrointestinal Comments: Negative *Genitourinary Comments: Negative *Musculoskeletal Comments: Negative *Neurologic Comments: Negative Meds Home Medications and Allergies Home Medications ?Medication ?Instructions ?Recorded ?Confirmed ?Type bupropion HCl 150 mg 24 hr tablet, 150 mg PO DAILY #30 tabs 10/11/23 09/04/24 Rx extended release (Wellbutrin XL) levonorgestrel 21 mcg/24 hr (up to 1 device intrauterine . 12/17/23 09/04/24 History 8 years) 52 mg intrauterine device (Mirena) sodium,potassium,mag sulfates 17.5 See Rx Instructions PO .COMPLEX 08/21/24 09/04/24 Rx gram-3.13 gram-1.6 gram oral soln #354 mL (Suprep Bowel Prep Kit) New Prescriptions to Start Prescriptions: Allergies Allergy/AdvReac Type Severity Reaction Status Date / Time Sulfa (Sulfonamide Allergy Unknown Vomiting Verified 09/04/24 11:22 Antibiotics) Exam Data for Last 24 hours Vital signs and Labs for Last 24 Hours: Temp Pulse Resp BP Pulse Ox O2 Del Method 97.9 F 78 16 106/67 L 99 Room Air 09/04/24 11:23 09/04/24 11:23 09/04/24 11:23 09/04/24 11:23 09/04/24 11:23 09/04/24 11:23 Laboratory Results - last 24 hr 09/04/24 11:16: Urine HCG, Qual Negative I & O for Last 24 hours: Intake & Output 09/01/24 09/02/24 09/03/24 09/04/24 23:59 23:59 23:59 23:59 Weight 155 lb *Routine HEENT Exam Head: Present normocephalic Eye: Present EOMI and PERRL ENT: Present mucous membranes moist *Routine Neck Exam Neck: Present supple *Routine Respiratory Exam Respiratory: Present CTA bilaterally *Routine Cardiovascular Exam Cardiovascular: Present RRR *Routine Abdominal Exam Abdominal: Present soft and normoactive bowel sounds; Absent tenderness *Routine Rectal Exam Rectal:: deferred *Routine Genitalia Exam Genitalia:: deferred *Routine Extremities Exam Extremities: Absent cyanosis, clubbing or edema *Routine Skin Exam Skin: Present warm; Absent rash *Routine Neurological Exam Neurological: Present alert and oriented X3 Assessment and Plan *Assessment and plan (1) Personal history of adenomatous and serrated colon polyps: Status: Acute Category: Medical Code(s): Z86.0101 - Personal history of adenomatous and serrated colon polyps Plan A/P: 1. Personal history of adenomatous colon polyp is the preprocedural diagnosis. The patient will be anesthetized/sedated using MAC sedation. The patient has been seen and examined. Cardiac and lung assessment prior to the examination is stable. Proceed with planned surveillance colonoscopy
[2024-09-04 11:50] VITALS: O2SAT 100
--- NOTE | 2024-09-04 12:02 | HMH.PROCNOTE ---
[facility] Procedure Note Date: 09/04/24 Time: 12:16 Procedure Note:: Colonoscopy Procedure Report: Colonoscopy Endoscopist: Umang Cortes II, MD Referring physician: ARGENTINA Doss Date of Procedure: September 04, 2024 Equipment: Olympus 190 variable stiffness pediatric colonoscope Sedation: MAC sedation Indication: Mrs. Walter is a 29-year-old female who is here for surveillance colonoscopy secondary to a prior history of an adenomatous polyp. She did have panendoscopy with ky and November 2017 and had a single rectal polyp (tubular adenoma) removed. After the of her second child, she had a change in bowel habits. She formally had IBS with diarrhea but now has struggled with some constipation. She has improved since initiation of combined MiraLAX plus Metamucil. The patient does have some hemorrhoidal bleeding approximately once a month. She also has frequent hemorrhoidal prolapse since this second childbirth. She reports no abdominal pain, weight loss or family history of colon cancer. She reports no family history of IBD or celiac disease. Procedure: Prior to the procedure, a history and physical exam was performed, and patient's medications and allergies were reviewed. The risks, benefits and alternatives of the sedation and procedure were discussed with the patient. All questions were answered and informed consent was obtained. The patient was brought to the procedure room. Patient identification and proposed procedure were verified by the physician and the nurse. The patient was placed in a left lateral decubitus position and the scope was passed under direct vision. Throughout the procedure, the patient's blood pressure, pulse, and oxygen saturations were monitored continuously. The colonoscopy was accomplished without difficulty. The patient tolerated the procedure well. Findings: On digital rectal examination there was normal rectal tone. There were no external hemorrhoids. The colonoscope was introduced through the anal canal to the rectum and advanced to the cecum. The ileocecal valve and appendiceal orifice were identified. The scope was advanced a short distance into the ileum which appeared grossly normal. The scope was then withdrawn into the colon. The cecum, ascending, transverse, descending, sigmoid and rectum were grossly normal. There were no mucosal abnormalities identified. Upon retroflexion within the rectum there were grade 1-2 internal hemorrhoids.The preparation was excellent throughout with [place] Preparation Score of 9. The cecal time was 10 minutes. Impression: 1. Normal colonoscopy with intubation of the terminal ileum 2. Grade 1-2 internal hemorrhoids Plan: I would recommend next repeat colonoscopy in 10 years. I would recommend that she continue the fiber bowel regimen (combined MiraLAX plus Metamucil) on a long-term maintenance basis. Lauren ELAINE had mentioned referral for pelvic floor physical therapy.
[2024-09-04 12:19] VITALS: BP 89/55; PULSE 81; RESP 16; TEMP 36.4; O2SAT 98
[2024-09-04 12:29] VITALS: BP 88/57; PULSE 63; RESP 16; O2SAT 98
[2024-09-04 12:39] VITALS: BP 93/55; PULSE 72; RESP 16; O2SAT 98
[2024-09-04 12:56] VITALS: BP 98/58; PULSE 64; RESP 18; O2SAT 100
== END 2024-09-04 12:57 | disposition home or self-care (01) ==
PROVIDERS: PCP Nurse Practitioner Family; Visit Provider Internal Medicine Gastroenterology
PROC: (CPT 45378; principal; 2024-09-04 13:00)
DX: K59.00 Constipation, unspecified (principal); K64.8 Other hemorrhoids; Z86.0101 Personal history of adenomatous and serrated colon polyps
CPT/HCPCS: 45378; 81025; J7120

== ENCOUNTER 2024-09-08 14:42 | Outpatient (CLI) | payer OTHER, SELFPAY ==
[2024-09-08 13:31] LABS: Microscopic, Urine URINE MICROSCOPIC (MICROSCOPIC)
[2024-09-08 14:13] LABS: Basophils % 0.3 % (0.1-2.0); Eosinophils # 0.1 K/mm3 (0.0-0.4); Eosinophils % 1.6 % (0.1-12.0); Hematocrit 37.6 % (37.0-47.0); Hemoglobin 13.2 g/dL (12.2-16.2); Lymphocytes # 1.4 K/mm3 (0.7-4.5); Lymphocytes % 25.4 % (10-50); Mean Corpuscular HGB Conc 35.2 g/dL (31.8-35.4); Mean Corpuscular Hemoglobin 31.5 pg (27.0-31.2); Mean Corpuscular Volume 89.5 fl (81-99); Monocytes # 0.4 K/mm3 (0.1-1.0); Monocytes % 6.6 % (1.7-9.3); Neutrophils # 3.7 K/mm3 (1.8-7.8); Platelet Count 295 K/mm3 (142-424); Red Cell Distribution Width 13.7 % (11.5-17.5); White Blood Count 5.5 K/mm3 (4.8-10.8)
[2024-09-08 14:29] LABS: Appearance,Urine CLEAR (Clear); Bilirubin,Urine Negative (Negative); Blood, Urine TRACE-I (Negative); Color,Urine YELLOW (Yellow); Glucose,Urine (UA) Negative (Negative); Ketones,Urine Negative (Negative); Leukocyte Esterase,Urine Negative (Negative); Nitrate,Urine Negative (Negative); PH,Urine 6.5 (5.0-8.5); Protein,Urine Negative (Negative); Urobilinogen,Urine 0.2 EU/dl (0.2)
[2024-09-08 14:57] LABS: Albumin Level 4.3 g/dl (3.5-5.0); Chloride 107 mmol/L (98-107); Potassium 4.1 mmoL/L (3.5-5.1); Sodium 141 mmol/L (136-145)
[2024-09-08 14:59] LABS: Alanine Aminotransferase 17 U/L (12-78); Aspartate Amino Transferase 24 U/L (14-36); Blood Urea Nitrogen 7 mg/dl (7-17); Estimated Glomerular Filt Rate 85 ml/min (>60); GFR (African American) 103 ML/MIN (>60)
[2024-09-08 15:00] LABS: Albumin/Globulin Ratio 1.8 (1.1-1.8); Alkaline Phosphatase 76 U/L (38-126); Anion Gap 13.1 mEq/L (5-15); Bilirubin,Total 0.7 mg/dl (0.2-1.3); Calcium 9.3 mg/dl (8.4-10.2); Carbon Dioxide 25 mmol/L (22.0-30.0); Chol/HDL Ratio 3.7 (1-3.5); Cholesterol 126 mg/dl (140-200); Globulin 2.4 g/dL (1.3-3.2); Glucose 69 mg/dl (74-100); HDL Cholesterol 34 mg/dl (40-60); Iron 104 ug/dL (37-170); Total Protein,Serum 6.7 g/dl (6.3-8.2); Triglycerides 105 mg/dl (30-150); VLDL Cholesterol 21 mg/dL (0-40)
[2024-09-08 15:11] LABS: Direct LDL Cholesterol 74.36 mg/dL (100-129)
[2024-09-08 15:23] LABS: Total Iron Binding Capacity 347 ug/dL (265-497)
[2024-09-08 15:29] LABS: RBC,Urine Occasional #/hpf (0-3); Squamous Epithelial Cell,Urine Occasional #/hpf (0-5)
[2024-09-08 16:09] LABS: HIV (1&2) Antibody Rapid NONREACTIVE (NONREACTIVE)
[2024-09-08 16:21] LABS: Thyroid Stimulating Hormone 0.77 uIU/mL (0.465-4.68)
[2024-09-08 16:25] LABS: Ferritin 16.8 ng/ml (6.24-137)
[2024-09-08 18:03] LABS: 25-OH Vitamin D, Total 24.7 ng/mL (30-100)
[2024-09-08 18:26] LABS: Vitamin B12 808 pg/mL (239-931)
[2024-09-09 09:16] LABS: HCV Ab Non Reactive (Non Reactive)
[2024-09-09 11:16] LABS: Antinuclear Antibodies (ANA) Negative (Negative)
== END 2024-09-08 23:59 | disposition home or self-care (01) ==
LOC: LAB.DROPOF 14:42
PROVIDERS: PCP Nurse Practitioner Family; Visit Provider Nurse Practitioner Family
DX: R53.83 Other fatigue (principal); E55.9 Vitamin D deficiency, unspecified; M25.551 Pain in right hip; Z11.59 Encounter for screening for other viral diseases; Z11.4 Encounter for screening for human immunodeficiency virus [HIV]; Z13.220 Encounter for screening for lipoid disorders; Z83.2 Family history of diseases of the blood and blood-forming organs and certain disorders involving the immune mechanism
CPT/HCPCS: 80050; 80053; 80061; 81001; 82306; 82607; 82728; 83540; 83550; 84439; 84443; 85025; 86038; 86803; 87086; 87088; 87186; 87389

== ENCOUNTER 2024-09-09 15:15 | Outpatient (CLI) | payer OTHER, SELFPAY ==
--- NOTE | 2024-09-09 15:17 | XR_ITS ---
FINAL REPORT CLINICAL HISTORY: right hip pain FINDINGS: Right hip Three views were obtained. There is no fracture or dislocation. The joint spaces appear normal. An IUD is seen in the mid pelvis. IMPRESSION: No acute process. Reviewed, Interpreted and Dictated by Yuri Kaiser III, MD Transcribed by Althea Coffman Authenticated and [facility]
== END 2024-09-09 23:59 | disposition home or self-care (01) ==
LOC: RAD 15:15
PROVIDERS: PCP Nurse Practitioner Family; Visit Provider Nurse Practitioner Family
DX: M25.551 Pain in right hip (principal)
CPT/HCPCS: 73502

== ENCOUNTER 2024-09-17 09:22 | Outpatient (CLI) | payer OTHER, SELFPAY ==
[2024-09-17 11:22] LABS: HCG,Quantitative < 2 mIU/ml (0-5.42)
== END 2024-09-17 23:59 | disposition home or self-care (01) ==
LOC: LAB 09:25
PROVIDERS: PCP Nurse Practitioner Family; Visit Provider Family Medicine
DX: Z32.02 Encounter for pregnancy test, result negative (principal)
CPT/HCPCS: 36415; 84702

== ENCOUNTER 2024-09-29 07:28 | Outpatient (CLI) | payer OTHER, SELFPAY ==
--- NOTE | 2024-09-29 07:28 | MR_ITS ---
FINAL REPORT CLINICAL HISTORY: chronic right hip painX 1 YEAR NO INJURY COMPARISON: None FINDINGS: Multiplanar and multisequence imaging of the right hip were obtained without contrast. Bone marrow signal intensity is preserved. There is no acute fracture, contusion or pathologic marrow replacement. The joint spaces preserved. There is no evidence of AVN. The labrum is intact. No convincing labral tear is identified. There is a fluid signal intensity lesion medial to the iliopsoas tendon measuring 22 mm in axial dimension and 33 mm in craniocaudal dimension. This is favored to represent iliopsoas bursitis. There is abnormal signal intensity overlying the gluteus tendon attachment on the right greater trochanter favored to represent mild trochanteric bursitis or gluteus medius strain. Remaining soft tissues are without acute abnormality. IMPRESSION: Findings most concerning for iliopsoas bursitis. Right gluteus medius strain versus mild greater trochanteric bursitis. Reviewed, Interpreted and Dictated by Jazmin Motley MD Transcribed by Katheryn Lucas Authenticated and . [facility]
== END 2024-09-29 23:59 | disposition home or self-care (01) ==
LOC: RAD 07:28
PROVIDERS: PCP Nurse Practitioner Family; Visit Provider Nurse Practitioner Family
DX: M25.551 Pain in right hip (principal); G89.29 Other chronic pain
CPT/HCPCS: 73721

== ENCOUNTER 2024-11-05 14:11 | Outpatient (CLI) | payer OTHER, SELFPAY ==
[2024-11-05 14:34] LABS: Basophils % 0.4 % (0.1-2.0); Eosinophils # 0.1 K/mm3 (0.0-0.4); Eosinophils % 1.1 % (0.1-12.0); Hematocrit 32.4 % (37.0-47.0); Hemoglobin 11.5 g/dL (12.2-16.2); Lymphocytes # 1.7 K/mm3 (0.7-4.5); Lymphocytes % 23.5 % (10-50); Mean Corpuscular HGB Conc 35.5 g/dL (31.8-35.4); Mean Corpuscular Hemoglobin 31.4 pg (27.0-31.2); Mean Corpuscular Volume 88.5 fl (81-99); Monocytes # 0.5 K/mm3 (0.1-1.0); Monocytes % 6.7 % (1.7-9.3); Platelet Count 267 K/mm3 (142-424); Red Blood Count 3.66 M/mm3 (4.20-5.40); Red Cell Distribution Width 12.8 % (11.5-17.5); White Blood Count 7.3 K/mm3 (4.8-10.8)
[2024-11-05 14:45] LABS: Albumin Level 4.5 g/dl (3.5-5.0); Chloride 104 mmol/L (98-107); Sodium 138 mmol/L (136-145)
[2024-11-05 14:46] LABS: Potassium 3.7 mmoL/L (3.5-5.1)
[2024-11-05 14:48] LABS: Alanine Aminotransferase 20 U/L (12-78); Albumin/Globulin Ratio 2.3 (1.1-1.8); Alkaline Phosphatase 73 U/L (38-126); Anion Gap 8.7 mEq/L (5-15); Aspartate Amino Transferase 28 U/L (14-36); Bilirubin,Total 0.3 mg/dl (0.2-1.3); Blood Urea Nitrogen 5 mg/dl (7-17); Carbon Dioxide 29 mmol/L (22.0-30.0); Estimated Glomerular Filt Rate 118 ml/min (>60); GFR (African American) 143 ML/MIN (>60); Total Protein,Serum 6.5 g/dl (6.3-8.2)
[2024-11-05 14:49] LABS: Calcium 8.9 mg/dl (8.4-10.2); Glucose 93 mg/dl (74-100)
[2024-11-05 15:04] LABS: HCG,Quantitative < 2 mIU/ml (0-5.42)
== END 2024-11-05 23:59 | disposition home or self-care (01) ==
LOC: PREOP 14:12
PROVIDERS: PCP Nurse Practitioner Family; Visit Provider Obstetrics & Gynecology
DX: Z30.2 Encounter for sterilization (principal)
CPT/HCPCS: 80053; 84702; 85025

== ENCOUNTER 2024-11-10 06:02 | Day surgery (SDC) | payer OTHER, SELFPAY ==
[2024-11-05 14:29] VITALS: BMI 26.5
[2024-11-10] VITALS (11 sets, daily range): BP systolic 93–117; BP diastolic 53–78; PULSE 76–90; RESP 15–18; TEMP 36.4–43; O2SAT 95–100
[2024-11-10] MEDS: 0.9 % SODIUM CHLORIDE 1000ML 1,000 ML 25 ML IV (06:20)
[2024-11-10] MEDS: ACETAMINOPHEN 500MG TAB 1000 MG PO (06:21)
--- NOTE | 2024-11-10 06:47 | EXP.ANES.CKL ---
[facility] Disclaimer: The information contained in this section may have been updated after the patient was seen, as this information can be updated by other users. 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, positive for SMA Neuralgia and neuritis Jaw pain Deviated nasal septum GERD (gastroesophageal reflux disease) Symptomatic cholelithiasis Surgical History History of tonsillectomy and adenoidectomy Delivery by section History of appendectomy History of cholecystectomy Family History Other Bleeding disorder Cancer Coronary artery disease Diabetes Heart attack Hyperlipidemia Hypertension Stroke Substance abuse Social History (Updated 11/10/24 @ 06:25 by Rupa Singh RN) Smoking Status: Never smoker alcohol intake: never substance use type: denies use current occupational status: employed Travel in the last 8 weeks: None household members: spouse and family housing: house current occupational exposures/hazards: No caffeine: Yes do you feel safe at home: Yes victim of physical abuse: No victim of emotional abuse: No victim of sexual abuse: No Have you lived/traveled outside [place] in past 30 days?: No Contact w/someone who lives/traveled outside US past 30 days?: No Exposure to someone with infectious disease in past 14 days?: No Do you have a fever (greater than 100.4 F or 38 C)?: No Have you tested positive for COVID-19: Yes Exposed to someone with COVID-19 in past 14 days?: No Do you have a sore throat?: No Do you have a cough?: No Do you have any weakness?: No Are you experiencing any nausea/vomitting?: No Do you have any diarrhea?: No Are you experiencing any unusual bleeding?: No Do you have any muscle aches/pain?: No Do you have any abdominal pain?: No Are you experiencing loss of taste or smell?: No [facility] Anesthesia Checklist Patient Identification Patient Identification: Arm Band and Family Structural Data Admitted From: Home Planned Operative Procedure/s: Lap Salpingectomy. IUD removal. Consent for Planned Operative Procedure(s) Verified: Yes Verified Documents: Surgical Consent NPO Status Verified Time NPO: 00:00 Additional verifications Patient : No Anesthesia Reactions: No Hx Blood Transfusions: No Blood Transfusion Reaction: No Cephalosporin Allergy: No Previous Colonoscopy: No Airway Assessment Mallampati Score:: Class I C-Spine Mobility Assessed: Yes TMJ Mobility Assessed: Yes Dentition: Good Dentition Neurological Assessment Level of Consciousness: Awake, Alert, Appropriate and Follows Commands Hx Seizures: No Numbness or tingling in extremities: No Anesthesia Plan Anesthesia Risk discussed: Yes ASA Class: I Anesthesia Type: General
[2024-11-10] MEDS: BUPIVACAINE 0.5% 30ML VIAL 150 MG (08:03)
--- NOTE | 2024-11-10 08:33 | EXP.ANES.I ---
[facility] Anesthesia Record Part I Anesthesia Record I Intake, IV Amount: 1,300 Hydration: Adequate Estimated blood loss (mL): 0 Urine output (mL): 0 Blood Products used (#): none Blood Pressure: 93/53 SaO2: 95 Pulse Rate: 77 Airway Patency: Patent Respiratory Rate: 16 Temperature: 97.7 F Patient is:: Drowsy and Stable Stable to PACU at:: 08:30
--- NOTE | 2024-11-10 08:42 | EXP.OP.NOTE ---
Date of procedure: 11/10/24 Pre-op Diagnosis:: 1. Complete family status, desires permanent sterilization Post-op Diagnosis:: 1. Complete family status, desires permanent sterilization 2. Stage 1 endometriosis of pelvic peritoneum Procedure performed:: Laparoscopy, bilateral salpingectomy Surgeon:: Sakina Jorgensen DO Associate Professor Physician(s):: N/a TEST ADMINISTRATOR:: Humphrey Banks Anesthesia: GETA Estimated blood loss (mL): 0 Clinical Note:: Mrs Yenifer Walter is a 29 yo P2012 who presents to [facility] for scheduled procedure. She is complete with childbearing and desires permanent sterilization. She currently has Mirena IUD in place but would like to stop hormones. History of x 1 and x 1. Operative findings:: 1. On bimanual exam, cervix grossly normal, uterus midposition, normal size and shape. No adnexal masses palpated 2. On laparoscopic exam liver, stomach, bowel and omentum grossly normal. Dominant follicle noted on left ovary. Uterus, bilateral fallopian tubes and ovaries grossly normal. 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 Operative note:: Risks, benefits and alternatives were discussed with the patient. Risks include but are not limited to bleeding, infection, damage to adjacent structures and VTE. Patient voiced understanding and agreed to proceed with surgery. She was wheeled back to the operating room and placed under general anesthesia without difficulty. She was placed in the dorsal lithotomy position and prepped and draped in normal sterile fashion. A straight catheter was used to drain the bladder. Clear urine noted. A bimanual exam was performed. A weighted Auvard was placed in the vaginal vault. A single tooth tenaculum was placed on the anterior lip of the cervix. Broaddus manipulator was inserted into the cervical canal and attached to the tenaculum. Weighted Auvard was removed from the vagina. Attention was then drawn to the abdomen. A 1.5 cm infraumbilical incision was made. Veress needle was tested and inserted intraabdominally without difficulty. Opening pressure of 3 mm Hg. Abdomen was then insulflated to 15 mm Hg. Trocar was inserted through infraumbilical incision and laparoscope was inserted. Abdomen was viewed in its entirety. See findings above. Pictures were taken. Left lower quadrant was transilluminated. 5 mm incision was made and 5 mm disposable blunt trocar was inserted into the abdomen under direct laparoscopic visualization. Trocar was removed and sleeve was left in place. Right lower quadrant was transilluminated. A 5mm incision was made and a 5 mm disposable trocar was inserted into the abdomen under direct laparoscopic visualization. Obturator was removed and sleeve was left in place. Fimbriated end of right fallopian tube was grasped. Ligasure was used to transect the right mesosalpinx and fallopian tube at uterine cornua, leaving right ovary in situ. Same procedure was carried out on the contralateral side. Bilateral fallopian tubes will be sent to pathology for review. Hemostasis was noted. Left lower quadrant trocar was removed under direct laparoscopic visualization. Right lower quadrant trocar was removed under direct laparoscopic visualization. Pneumoperitoneum was released into the atmosphere. Infraumbilical trocar was removed under direct laparoscopic visualization to ensure no herniation of bowel or omentum. Skin incisions were closed with 3-0 Vicryl. Dermabond was applied over closed skin incisions. All instruments were removed from the vagina. Tenaculum site was noted to be hemostatic. Patient was cleaned and placed into the dorsal supine position. She awoke from anesthesia without difficulty. She was transported to the recovery room in stable condition. She was given instructions for discharge and to follow-up in the office in 2 weeks at which time pathology will be reviewed. Condition: stable Disposition: same day Specimens:: 1. Bilateral fallopian tubes Complications:: None
[2024-11-10] MEDS: ONDANSETRON 4MG/2ML VIAL 4 MG IV (08:48)
--- NOTE | 2024-11-10 12:24 | P.PNANES_ITS ---
[facility] Anesthesia Record Part II Anesthesia Record Part II Discharge Time: 09:00 Destination: Surgical Day Care (OP Surgery) PACU nurse assessment reviewed?: Yes Patient Condition:: Good Anesthesia Complications:: None Swallowing reflex intact?: Yes Airway Patency: Patent Cyanosis?: No Blood Pressure: 112/59 SaO2: 100 Respiratory Rate: 16 Pulse Rate: 76 Temperature: 97.7 F Mental Status: Alert & Oriented Pain level:: 0 Nausea and/or vomitting:: None Intake, IV Amount: 0 Hydration: Adequate
== END 2024-11-10 09:35 | disposition home or self-care (01) ==
PROVIDERS: PCP Nurse Practitioner Family; Visit Provider Obstetrics & Gynecology
PROC: (CPT 58661; principal; 2024-11-10 07:30)
DX: Z30.2 Encounter for sterilization (principal); N80.30 Endometriosis of pelvic peritoneum, unspecified
CPT/HCPCS: 58661; J3490; C9144; J1100; J1885; J2250; J2405; J3010; J7030; J7120

== ENCOUNTER 2025-03-17 11:31 | Outpatient (CLI) | payer OTHER, SELFPAY ==
--- NOTE | 2025-03-17 11:34 | XR_ITS ---
FINAL REPORT CLINICAL HISTORY: rib pain, tenderness, pain with breathing x's 3 days COMPARISON: None FINDINGS: 3 views of the left ribs were obtained. There is no displaced, acute fracture identified. There is a large density in the right paratracheal region measuring 6 cm in craniocaudal dimension. This density is fairly homogeneous. No pneumothorax is identified. IMPRESSION: No displaced rib fracture or pneumothorax identified. Large density right paratracheal region. Recommend infused thoracic CT to better characterize. Reviewed, Interpreted and Dictated by Дмитрий Mcneil MD Transcribed by Katheryn Lucas Authenticated and [facility]
--- OUTSIDE RECORDS SUMMARY | 2025-03-17 11:34 | XMS_ITS | Clinical Summary ---
Author Organization Healthcare Address [address] [place] [address] Care Team Providers Care Chilling Hood Operator Name Role Phone Luke Hammonds MD Primary Care Provider [phone] Immunizations Immunization Administration Dates Next Due Influenza, Unspecified 07/18/2017 Pneumococcal Polysaccharide PPV23 12/26/2017 Family History Medical History Relation Name Comments Diabetes Other 1 Hypertension Other 2 Other cancer Other 3 Relation Name Status Comments Other 1 Other 2 Other 3 Social History Tobacco Use Types Packs/Day Years Used Date Smoking Tobacco: Never Comments Unknown Sex and Gender Information Value Date Recorded Sex Assigned at Not on file Legal Sex Female 6:36 PM EDT Gender Identity Not on file Sexual Orientation Not on file Last Filed Vital Signs Vital Sign Reading Time Taken Comments Blood Pressure 116/62 02/11/2019 11:50 AM EDT Pulse 70 02/11/2019 11:50 AM EDT Temperature 36.2 C (97.2 F) 02/11/2019 11:50 AM EDT Respiratory Rate 16 02/11/2019 11:50 AM EDT Oxygen Saturation - - Inhaled Oxygen Concentration - - Weight 67.7 kg (149 lb 2.3 oz) 02/11/2019 11:50 AM EDT Height 160 cm (5' 3 ) 02/11/2019 11:50 AM EDT Body Mass Index 26.42 02/11/2019 11:50 AM EDT Plan of Treatment Not on file Care Teams Chilling Hood Operator Relationship Specialty Start Date End Date Luke Hammonds MD [address] [facility] [address] [place] [address] PCP - General 02/11/21
== END 2025-03-17 23:59 | disposition home or self-care (01) ==
LOC: RAD 11:32
PROVIDERS: PCP Family Medicine; Visit Provider Family Medicine
DX: R93.7 Abnormal findings on diagnostic imaging of other parts of musculoskeletal system (principal); R07.81 Pleurodynia
CPT/HCPCS: 71101

== ENCOUNTER 2025-03-18 10:32 | Outpatient (CLI) | payer OTHER, SELFPAY ==
--- OUTSIDE RECORDS SUMMARY | 2025-03-18 10:36 | XMS_ITS | Clinical Summary ---
Author Organization Healthcare Address [address] [place] [address] Care Team Providers Care Refrigeration Technician Name Role Phone Luke Hammonds MD Primary Care Provider [phone] Immunizations Immunization Administration Dates Next Due Influenza, [...] of Treatment Not on file Care Teams Refrigeration Technician Relationship Specialty Start Date End Date Luke Hammonds MD [address] [facility] [address] [place] [address] PCP - General 02/11/21
[2025-03-18] MEDS: IOPAMIDOL-370 (76%);100ML BOTTLE 75 ML IV (10:54)
[2025-03-18] MEDS: SODIUM CHLORIDE 0.9% 10ML SYR (RAD ONLY) 10 ML IV (10:54)
--- NOTE | 2025-03-18 11:00 | CT_ITS ---
FINAL REPORT TECHNIQUE: Routine axial images were obtained from the lung apices to below the diaphragm following IV contrast administration. Individualized dose reduction techniques using automated exposure control or adjustment of the mA and/or kV according to the patient size were employed. CLINICAL HISTORY: mass, abn findings on recent rib xray. Also patient having left lower rib pain too. COMPARISON: 03/29/2023 FINDINGS: CT CHEST WITH CONTRAST: There are large densely calcified lymph nodes in the right mediastinum, as well as multiple calcified precarinal and subcarinal lymph nodes. These calcified nodes were present on the prior CT of 2022. No new adenopathy is identified. No pleural or pericardial effusions are noted. Calcified granulomas are noted in the lung hoskins bilaterally. No infiltrates or noncalcified nodules are identified. IMPRESSION: Densely calcified lymph nodes in the mediastinum as described above, stable since the prior CT of 2022. Calcified granulomas are noted in the lung hoskins bilaterally, without new infiltrates or noncalcified nodules since the prior CT. Reviewed, Interpreted and Dictated by Дмитрий Mcneil MD Transcribed by Chanda Dukes Authenticated and [facility]
== END 2025-03-18 23:59 | disposition home or self-care (01) ==
LOC: RAD 10:32
PROVIDERS: PCP Family Medicine; Visit Provider Family Medicine
DX: J84.10 Pulmonary fibrosis, unspecified (principal); R59.0 Localized enlarged lymph nodes
CPT/HCPCS: 71260; Q9967

== ENCOUNTER 2025-03-21 10:07 | Outpatient (CLI) | payer OTHER, SELFPAY ==
--- OUTSIDE RECORDS SUMMARY | 2025-03-23 10:29 | XMS_ITS | Clinical Summary ---
Author Organization Healthcare Address [address] [place] [address] Care Team Providers Care Sodium Methylate Operator Name Role Phone Luke Hammonds MD Primary Care Provider [phone] Immunizations Immunization Administration Dates Next Due Influenza, [...] of Treatment Not on file Care Teams Sodium Methylate Operator Relationship Specialty Start Date End Date Luke Hammonds MD [address] [facility] [place] [address] [place] [address] PCP - General 02/11/21
== END 2025-03-21 23:59 | disposition home or self-care (01) ==
LOC: LAB.DROPOF 03-23 10:08
PROVIDERS: PCP Family Medicine; Visit Provider Nurse Practitioner
DX: R31.9 Hematuria, unspecified (principal)
CPT/HCPCS: 87086; 87088; 87186